=== PATIENT | male | born 1950 | race Caucasian/White ===

== ENCOUNTER → 2020-02-08 10:10 | Outpatient (BNVA) | payer MEDICARE, SELFPAY | PROVIDERS: PCP Family Medicine; Visit Provider Urology | DX: Z43.5 Encounter for attention to cystostomy (principal); N31.9 Neuromuscular dysfunction of bladder, unspecified | CPT/HCPCS: 51705; 99212 ==

== ENCOUNTER → 2020-03-14 10:13 | Outpatient (BNVA) | payer MEDICARE, SELFPAY | PROVIDERS: Visit Provider Urology | DX: N13.9 Obstructive and reflux uropathy, unspecified (principal) | CPT/HCPCS: 51701; 51705; 51710; 99212 ==

== ENCOUNTER → 2020-04-25 13:09 | Outpatient (BNVA) | payer MEDICARE, SELFPAY | PROVIDERS: Visit Provider Urology | DX: N31.9 Neuromuscular dysfunction of bladder, unspecified (principal) | CPT/HCPCS: 51705; 51710; 99212 ==

== ENCOUNTER → 2020-06-11 13:57 | Outpatient (BNVA) | payer MEDICARE, SELFPAY | PROVIDERS: Visit Provider Urology | DX: N31.9 Neuromuscular dysfunction of bladder, unspecified (principal) | CPT/HCPCS: 51705; 99212 ==

== ENCOUNTER → 2020-07-17 13:02 | Outpatient (BNVA) | payer MEDICARE, SELFPAY | PROVIDERS: Visit Provider Urology | DX: N31.9 Neuromuscular dysfunction of bladder, unspecified (principal) | CPT/HCPCS: 51701; 51705; 99212 ==

== ENCOUNTER → 2020-08-23 13:07 | Outpatient (BNVA) | payer MEDICARE, SELFPAY | PROVIDERS: Visit Provider Urology | DX: N31.9 Neuromuscular dysfunction of bladder, unspecified (principal) | CPT/HCPCS: 51705; 99212 ==

== ENCOUNTER → 2020-10-01 12:56 | Outpatient (BNVA) | payer MEDICARE, SELFPAY | PROVIDERS: Visit Provider Urology | DX: N31.9 Neuromuscular dysfunction of bladder, unspecified (principal) | CPT/HCPCS: 51705; 99212 ==

== ENCOUNTER → 2020-11-14 10:32 | Outpatient (BNVA) | payer MEDICARE, SELFPAY | PROVIDERS: Visit Provider Urology | DX: Z46.6 Encounter for fitting and adjustment of urinary device (principal); N31.9 Neuromuscular dysfunction of bladder, unspecified | CPT/HCPCS: 51705; 99212 ==

== ENCOUNTER → 2020-12-25 09:49 | Outpatient (BNVA) | payer MEDICARE, SELFPAY | PROVIDERS: PCP Internal Medicine Nephrology; Visit Provider Urology | DX: N31.9 Neuromuscular dysfunction of bladder, unspecified (principal) | CPT/HCPCS: 51705 ==

== ENCOUNTER → 2021-01-31 12:59 | Outpatient (BNVA) | payer MEDICARE, SELFPAY | PROVIDERS: PCP Internal Medicine Nephrology; Visit Provider Urology | DX: N31.9 Neuromuscular dysfunction of bladder, unspecified (principal) | CPT/HCPCS: 51705 ==

== ENCOUNTER → 2021-03-04 13:00 | Outpatient (BNVA) | payer MEDICARE, SELFPAY | PROVIDERS: PCP Internal Medicine Nephrology; Visit Provider Urology | DX: N31.9 Neuromuscular dysfunction of bladder, unspecified (principal) | CPT/HCPCS: 51705 ==

== ENCOUNTER → 2021-04-08 12:19 | Outpatient (BNVA) | payer MEDICARE, SELFPAY | PROVIDERS: PCP Internal Medicine Nephrology; Visit Provider Urology | DX: N31.9 Neuromuscular dysfunction of bladder, unspecified (principal) | CPT/HCPCS: 51705 ==

== ENCOUNTER → 2021-05-13 12:46 | Outpatient (BNVA) | payer MEDICARE, SELFPAY | PROVIDERS: PCP Internal Medicine Nephrology; Visit Provider Urology | DX: Z43.5 Encounter for attention to cystostomy (principal); N31.9 Neuromuscular dysfunction of bladder, unspecified | CPT/HCPCS: 51705 ==

== ENCOUNTER → 2021-06-17 10:44 | Outpatient (BNVA) | payer MEDICARE, SELFPAY | PROVIDERS: PCP Internal Medicine Nephrology; Visit Provider Urology | DX: N31.9 Neuromuscular dysfunction of bladder, unspecified (principal) | CPT/HCPCS: 51705 ==

== ENCOUNTER → 2021-08-05 10:12 | Outpatient (BNVA) | payer MEDICARE, SELFPAY | PROVIDERS: PCP Internal Medicine Nephrology; Visit Provider Urology | DX: Z43.5 Encounter for attention to cystostomy (principal); N31.9 Neuromuscular dysfunction of bladder, unspecified | CPT/HCPCS: 51705 ==

== ENCOUNTER → 2021-09-18 10:58 | Outpatient (BNVA) | payer MEDICARE, SELFPAY | PROVIDERS: PCP Internal Medicine Nephrology; Visit Provider Urology | DX: Z43.5 Encounter for attention to cystostomy (principal); N31.9 Neuromuscular dysfunction of bladder, unspecified | CPT/HCPCS: 51705; 99212 ==

== ENCOUNTER → 2021-10-23 11:12 | Outpatient (BNVA) | payer MEDICARE, SELFPAY | PROVIDERS: PCP Internal Medicine Nephrology; Visit Provider Urology | DX: N31.9 Neuromuscular dysfunction of bladder, unspecified (principal) | CPT/HCPCS: 51705 ==

== ENCOUNTER → 2021-11-28 10:37 | Outpatient (BNVA) | payer MEDICARE, SELFPAY | PROVIDERS: PCP Internal Medicine Nephrology; Visit Provider Urology | DX: N31.9 Neuromuscular dysfunction of bladder, unspecified (principal) | CPT/HCPCS: 51702; 51705 ==

== ENCOUNTER → 2022-01-01 10:49 | Outpatient (BNVA) | payer MEDICARE, SELFPAY | PROVIDERS: PCP Internal Medicine Nephrology; Visit Provider Urology | DX: Z43.5 Encounter for attention to cystostomy (principal) | CPT/HCPCS: 51705 ==

== ENCOUNTER → 2022-04-10 11:35 | Outpatient (BNVA) | payer MEDICARE, SELFPAY | PROVIDERS: PCP Internal Medicine Nephrology; Visit Provider Urology | DX: N31.9 Neuromuscular dysfunction of bladder, unspecified (principal) | CPT/HCPCS: 51705; 99212 ==

== ENCOUNTER → 2022-05-19 11:20 | Outpatient (BNVA) | payer MEDICARE, SELFPAY | PROVIDERS: PCP Internal Medicine Nephrology; Visit Provider Urology | DX: Z43.5 Encounter for attention to cystostomy (principal); N31.9 Neuromuscular dysfunction of bladder, unspecified | CPT/HCPCS: 51705 ==

== ENCOUNTER → 2022-06-25 11:30 | Outpatient (BNVA) | payer MEDICARE, SELFPAY | PROVIDERS: PCP Internal Medicine Nephrology; Visit Provider Urology | DX: Z43.5 Encounter for attention to cystostomy (principal); N31.9 Neuromuscular dysfunction of bladder, unspecified | CPT/HCPCS: 51705 ==

== ENCOUNTER → 2022-08-04 11:00 | Outpatient (BNVA) | payer MEDICARE, SELFPAY | PROVIDERS: PCP Internal Medicine Nephrology; Visit Provider Urology | DX: N31.9 Neuromuscular dysfunction of bladder, unspecified (principal) | CPT/HCPCS: 51705 ==

== ENCOUNTER → 2022-09-08 11:05 | Outpatient (BNVA) | payer MEDICARE, SELFPAY | PROVIDERS: PCP Internal Medicine Nephrology; Visit Provider Urology | DX: Z43.5 Encounter for attention to cystostomy (principal); N31.9 Neuromuscular dysfunction of bladder, unspecified | CPT/HCPCS: 51705 ==

== ENCOUNTER 2022-10-28 09:26 | Outpatient (AMB) | payer MEDICARE, SELFPAY ==
--- NOTE | 2022-10-28 08:21 | A.OFFVIS_ITS ---
Intake Intake Visit Reasons: 5w cath change Intake Note: Patient presents today for a follow-up on 5 weeks catheter change: Meds- None Allergies to Antibiotic- None Blood Thinner- None Rewards Consultant Required: No Accompanied by: Self / Same As Patient Allergies No Known Allergies Allergy (Verified 10/28/22 09:34) HPI HPI Comments History of Present Illness Details Joseph is a 72-year-old male who presents to the clinic today for a suprapubic catheter change. 10/28/22? Joseph is a patient of Dr. Lazar who is followed for a neurogenic bladder. He has a suprapubic catheter in place and he is here for a catheter change. The patient reports that he noticed cloudy urine this morning, but he denies any other symptoms of fever or blood in the urine. He follows up with a naphthol soaping machine operator, Dr. Romero, and is on dialysis for end-stage renal disease. He does produce some urine. Eval: SPT site clean no signs of infection Plan: We will continue the suprapubic catheter for neurogenic bladder. I advised the patient to let me know if he develops any urinary symptoms. Follow up in 6 weeks with Nurse for SPT change, GINGER Lazar 6 months. [facility] Medical History Hydrocele Neurogenic bladder Review of Systems Const All systems reviewed & are unremarkable except as noted in HPI and below Reports no additional complaints Eyes Reports no additional complaints ENT Reports no additional complaints Card Denies dyspnea Resp Denies cough and Denies dyspnea GI Reports no additional complaints Musc Reports no additional complaints Skin/Breast Denies rash and Denies unusual bruising Neuro Reports no additional complaints Psych Reports no additional complaints Endo Reports no additional complaints Raji/Lymph Reports no additional complaints Aller/Immun Reports no additional complaints Physical Exam Const General: healthy appearing, no acute distress and well developed Orientation/consciousness: patient oriented x3 HEENT Head: Yes normocephalic and Yes atraumatic Eyes Conjunctivae: conjunctivae normal Neck Neck: Yes normal visual inspection Chest Chest palpation & inspection: normal inspection of the chest Resp Effort & Inspection: normal respiratory effort Cardio Rate: regular rate GI Inspection: Yes normal to inspection Palpation (GI): Soft to palpation Other: SPT site clean no signs of infection Skin General skin exam: no rashes or lesions noted Neuro General: patient oriented x3 Extrem General: No pedal edema Psych Appearance: grossly normal Affect: normal affect Office Procedures Bladder/Catheter Procedure Details: 18 fr mila urbina cath 7.5 ml balloon exchanged with new 18 fr mila urbina cath 7.5 ml balloon w blue plug, pt tolerated exchange well. 38058-[id number] of bladder tube Procedure code (CPT) selection complete Results AMB Urinalysis, Automated UA Leukoctes 500 Griselda/uL Last Edit by SHERITA Mcguire on 10/28/22 09:50 3+ Peggy Ordaz 10/28/22 09:50 UA Nitrite Negative Last Edit by SHERITA Mcguire on 10/28/22 09:50 UA Urobilinogen 0.2 mg/dL Last Edit by SHERITA Mcguire on 10/28/22 09:5 0 UA Protein 100 mg/dL Last Edit by SHERITA Mcguire on 10/28/22 09:50 2+ Peggy Ordaz 10/28/22 09:50 UA pH 9.0 Last Edit by SHERITA Mcguire on 10/28/22 09:50 UA Blood 200 Alonzo/uL Last Edit by SHERITA Mcguire on 10/28/22 09:50 3+ Peggy Ordaz 10/28/22 09:50 UA Specific Superior 1.005 Last Edit by SHERITA Mcguire on 10/28/22 09: 50 UA Ketone Negative Last Edit by SHERITA Mcguire on 10/28/22 09:50 UA Bilirubin 0 mg/dL Last Edit by SHERITA Mcguire on 10/28/22 09:50 UA Glucose 0 mg/dL Last Edit by SHERITA Mcguire on 10/28/22 09:50 Results Reviewed Results Reviewed: Laboratory Last Values Urine pH (Auto) 9.0 07/19/23 09:48 Specific Superior (Auto) 1.005 10/28/22 09:48 Urine Protein (Auto) 100 mg/dL 10/28/22 09:48 Glucose (UA)(Auto) 0 mg/dL 10/28/22 09:48 Urine Ketones (Auto) Negative 10/28/22 09:48 Urine Blood (Auto) 200 Alonzo/uL 10/28/22 09:48 Urine Nitrite (Auto) Negative 10/28/22 09:48 Urine Bilirubin (Auto) 0 mg/dL 10/28/22 09:48 Urine Urobilinogen (Auto) 0.2 mg/dL 10/28/22 09:48 Leukocyte Esterase (Auto) 500 Griselda/uL 10/28/22 09:48 Assessment & Plan Assessment & Plan (1) Neurogenic urinary bladder disorder: Code(s): N31.9 - Neuromuscular dysfunction of bladder, unspecified Plan We will continue the suprapubic catheter for neurogenic bladder. I advised the patient to let me know if he develops any urinary symptoms. Follow up in 6 weeks with Nurse for SPT change, FU Dr. Lazar in 6 months. Orders: Orders AMB Urinalysis Automated Today Z13.9 - Encounter for screening, unspecified AMB Bladder/Catheter Procedure Today N31.9 - Neuromuscular dysfunction of bladder, unspecified Patient Instructions: The patient had an opportunity to ask questions regarding treatment plan. All questions were answered. Imaging, Laboratory studies and physical exam results were discussed and reviewed in detail. No major barriers to understanding were identified. The patient expressed understanding and agreement with the above treatment plan. The patient is aware they should contact our office by phone for worsening of their current condition or the appearance of new symptoms. Compliance is encouraged with any medications and followup testing that is ordered. It is a privilege to be allowed the opportunity to participate in the urologic care of your patient. If you have any questions or concerns regarding treatment for the above conditions please do not hesitate to contact me. The office telephone contact is [phone]. This note is constructed in part using voice recognition software. While every effort has been made to ensure accuracy lehr cutter errors may have been inclu ded. Yours sincerely, Riki Sumner MD Coding Level of Care Code Est Pt Level 3 (23940) Diagnoses Neurogenic urinary bladder disorder N31.9 CPT Codes Bladder/Catheter Procedure - CPT: 83397-Xsuhdx of bladder tube ([id number])
== END 2022-10-28 10:05 | disposition home or self-care (01) ==
PROVIDERS: PCP Internal Medicine Nephrology; Visit Provider Urology
DX: N31.9 Neuromuscular dysfunction of bladder, unspecified (principal)
CPT/HCPCS: 51705; 99213

== ENCOUNTER → 2022-10-28 09:26 | Outpatient (BNVA) | payer MEDICARE, SELFPAY | PROVIDERS: PCP Internal Medicine Nephrology; Visit Provider Urology | DX: N31.9 Neuromuscular dysfunction of bladder, unspecified (principal) | CPT/HCPCS: 51705; 99212 ==

== ENCOUNTER → 2022-12-31 14:31 | Outpatient (BNVA) | payer MEDICARE, SELFPAY | PROVIDERS: PCP Internal Medicine Nephrology; Visit Provider Urology | DX: Z43.5 Encounter for attention to cystostomy (principal); N31.9 Neuromuscular dysfunction of bladder, unspecified | CPT/HCPCS: 51705 ==

== ENCOUNTER → 2023-03-16 10:40 | Outpatient (BNVA) | payer MEDICARE, SELFPAY | PROVIDERS: PCP Internal Medicine Nephrology; Visit Provider Urology | DX: N31.9 Neuromuscular dysfunction of bladder, unspecified (principal) | CPT/HCPCS: 51705 ==

== ENCOUNTER 2023-04-27 10:43 | Outpatient (AMB) | payer MEDICARE, SELFPAY ==
--- NOTE | 2023-04-27 10:44 | MHC.OFFVIS ---
Intake Intake Visit Reasons: 6m/SPT change Intake Note: Patient is Present for Follow Up Spt Change Urology Medication: None Antibiotic Allergies: None Blood Thinners: None Allergies No Known Allergies Allergy (Verified 04/27/23 10:50) HPI HPI Comments History of Present Illness Details Joseph is a very pleasant male. He is a patient of Dr. Gant. He seen for the following urologic conditions - neurogenic bladder Minimal issues since last visit Currently being evaluated for transplantation. They have discussed ileal loop previously Option may be available for bladder implantation and continued use of suprapubic tube Doing well otherwise Neurogenic Bladder: SPT changed prefers catheter clip over valve Also uses catheter plug They are here for further management for incomplete emptying neurogenic bladder. 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 [facility] Medical History Hydrocele Neurogenic bladder Review of Systems Const Denies chills and Denies fever(s) Card Reports no additional complaints and Denies syncope Resp Denies cough GI Denies abdominal pain and Denies heartburn Reports as per HPI and Denies change in libido Neuro Denies syncope Psych Denies change in libido Endo Denies change in libido Physical Exam Const General: cooperative, healthy appearing, comfortable and no acute distress Orientation/consciousness: patient oriented x3 HEENT Face and sinus: Yes normal facial exam Mouth: moist mucous membranes Neck Neck: Yes normal visual inspection, Yes full ROM and Yes trachea midline Chest Chest palpation & inspection: normal inspection of the chest Resp Effort & Inspection: normal respiratory effort, able to speak in complete sentences and no respiratory distress GI Inspection: Yes normal to inspection Back/Spine/Pelvis Cervical Spine: normal cervical lordosis Thoracic/Lumbar Spine: thoracic and lumbar spine normal to inspection Skin General skin exam: no rashes or lesions noted Neuro General: patient oriented x3, gait normal, tone normal and moves all extremities Extrem General: Yes normal to inspection and Yes capillary refill normal Office Procedures Bladder/Catheter Procedure Details: 18 fr mila urbina cath 7.5 ml balloon exchanged with new 18 fr mila urbina cath 7.5 ml balloon w blue plug, pt tolerated exchange well. 5 wks next change [id number] of bladder tube Procedure code (CPT) selection complete Assessment & Plan Assessment & Plan (1) Neurogenic urinary bladder disorder: Code(s): N31.9 - Neuromuscular dysfunction of bladder, unspecified Plan Six-month follow-up with me Orders: Orders AMB Bladder/Catheter Procedure Today N31.9 - Neuromuscular dysfunction of bladder, unspecified Patient Instructions: Imaging studies, laboratory and physical exam results were discussed and reviewed in detail. No major barriers to patient understanding were identified. An opportunity to ask questions regarding the treatment plan was provided. All questions were answered. The patient expressed understanding and agreement with the above treatment plan. The patient is aware they should contact our office by phone for worsening of their current condition or the appearance of new urologic symptoms. Compliance is encouraged with any medications and followup testing that is ordered. It is a privilege to participate in the urologic care of your patient. If you have any questions or concerns regarding treatment for the above conditions, or other urologic issues, please do not hesitate to contact me. The office telephone contact is [phone]. This note is constructed using voice recognition software. While every effort has been made to ensure accuracy abstract maker errors may have been included. Yours sincerely, Dr Vladimir Lazar MD, [facility] - Urology Providers of Expert, Compassionate Care for the Genitourinary System Coding Level of Care Code Est Pt Level 3 (56195) Diagnoses Neurogenic urinary bladder disorder N31.9 CPT Codes Bladder/Catheter Procedure - CPT: 48123-Zvxjtq of bladder tube ([id number])
== END 2023-04-27 11:06 | disposition home or self-care (01) ==
LOC: HO.HUSH 10:43
PROVIDERS: PCP Internal Medicine Nephrology; Visit Provider Urology
DX: N31.9 Neuromuscular dysfunction of bladder, unspecified (principal)
CPT/HCPCS: 51705; 99213

== ENCOUNTER → 2023-04-27 10:43 | Outpatient (BNVA) | payer MEDICARE, SELFPAY | PROVIDERS: PCP Internal Medicine Nephrology; Visit Provider Urology | DX: Z43.5 Encounter for attention to cystostomy (principal); N31.9 Neuromuscular dysfunction of bladder, unspecified | CPT/HCPCS: 51705; 99212 ==

== ENCOUNTER → 2023-06-29 11:17 | Outpatient (BNVA) | payer MEDICARE, SELFPAY | PROVIDERS: PCP Internal Medicine Nephrology; Visit Provider Urology | DX: N31.9 Neuromuscular dysfunction of bladder, unspecified (principal) | CPT/HCPCS: 51705 ==

== ENCOUNTER → 2023-08-10 11:00 | Outpatient (BNVA) | payer MEDICARE, SELFPAY | PROVIDERS: PCP Internal Medicine Nephrology; Visit Provider Urology | DX: N31.9 Neuromuscular dysfunction of bladder, unspecified (principal) | CPT/HCPCS: 51705 ==

== ENCOUNTER 2023-10-05 13:34 | Outpatient (AMB) | payer MEDICARE, SELFPAY ==
--- NOTE | 2023-10-05 13:20 | MHC.OFFVIS ---
Intake Visit Reasons: 6m/SPT change Intake Note: Patient is present for 6 month f/u and STP change Urology Medication:ciprofloxacin Antibiotic Allergy:none Blood Thinner:none pt states that david has been getting caught in the tube for a couple weeks Flower Planter Required: No Allergies No Known Allergies Allergy (Verified 10/05/23 13:23) HPI Comments Details: Joseph is a very pleasant male. He is a patient of Dr. Gant. He seen for the following urologic conditions - neurogenic bladder Minimal issues since last visit Currently being evaluated for transplantation. They have discussed ileal loop previously Option may be available for bladder implantation and continued use of suprapubic tube Doing well otherwise Neurogenic Bladder: SPT changed prefers catheter clip over valve Also uses catheter plug They are here for further management for incomplete emptying neurogenic bladder. 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 [facility] Medical History Hydrocele Neurogenic bladder Review of Systems Const Denies chills and Denies fever(s) Card Reports no additional complaints and Denies syncope Resp Denies cough GI Denies abdominal pain and Denies heartburn Reports as per HPI and Denies change in libido Neuro Denies syncope Psych Denies change in libido Endo Denies change in libido Physical Exam Const General: cooperative, healthy appearing, comfortable and no acute distress Orientation/consciousness: patient oriented x3 HEENT Face and sinus: Yes normal facial exam Mouth: moist mucous membranes Neck Neck: Yes normal visual inspection, Yes full ROM and Yes trachea midline Chest Chest palpation & inspection: normal inspection of the chest Resp Effort & Inspection: normal respiratory effort, able to speak in complete sentences and no respiratory distress GI Inspection: Yes normal to inspection Back/Spine/Pelvis Cervical Spine: normal cervical lordosis Thoracic/Lumbar Spine: thoracic and lumbar spine normal to inspection Skin General skin exam: no rashes or lesions noted Neuro General: patient oriented x3, gait normal, tone normal and moves all extremities Extrem General: Yes normal to inspection and Yes capillary refill normal Office Procedures Bladder/Catheter Procedure Details: 18 fr mila urbina cath 7.5 ml balloon exchanged with new 18 fr mila urbina cath 7.5 ml balloon w blue plug, pt tolerated exchange well. 5 wks next change 29479-[id number] of bladder tube Procedure code (CPT) selection complete Assessment & Plan Assessment & Plan (1) Neurogenic urinary bladder disorder: Code(s): N31.9 - Neuromuscular dysfunction of bladder, unspecified Category: Medical Plan 6 month review Orders: Orders AMB Bladder/Catheter Procedure Today N31.9 - Neuromuscular dysfunction of bladder, unspecified Patient Instructions: Imaging studies, laboratory and physical exam results were discussed and reviewed in detail. No major barriers to patient understanding were identified. An opportunity to ask questions regarding the treatment plan was provided. All questions were answered. The patient expressed understanding and agreement with the above treatment plan. The patient is aware they should contact our office by phone for worsening of their current condition or the appearance of new urologic symptoms. Compliance is encouraged with any medications and followup testing that is ordered. It is a privilege to participate in the urologic care of your patient. If you have any questions or concerns regarding treatment for the above conditions, or other urologic issues, please do not hesitate to contact me. The office telephone contact is [phone]. This note is constructed using voice recognition software. While every effort has been made to ensure accuracy gas turbine mechanic errors may have been included. Yours sincerely, Dr Vladimir Lazar MD, [facility] - Urology Providers of Expert, Compassionate Care for the Genitourinary System Coding Level of Care Code Est Pt Level 3 (49813) Diagnoses Neurogenic urinary bladder disorder N31.9 CPT Codes Bladder/Catheter Procedure - CPT: 11210-Crayzy of bladder tube ([id number])
--- OUTSIDE RECORDS SUMMARY | 2023-10-07 08:02 | XMS_ITS | Continuity of Care Document ---
Author Organization [facility] ter Address [address] [place] [id number]- Care Team Providers Care Hem Inspector Name Role Phone Jan Romero MD Primary Care Physician [place] [facility] Date(s): 10/12/22 - 10/16/[address] [address] Discharge Disposition: A-D/C Home Attending Physician: Zoraida Solorio MD Admitting Physician: Dk Ayala MD Referring Physician: Dk Ayala MD Allergies, Adverse Reactions, Alerts No Known Allergies Immunizations Given and Recorded Vaccine Date Status Refusal Reason SARS-CoV-2 (COVID-19) mRNA-1273 vaccine 07/04/20 R ecorded SARS-CoV-2 (COVID-19) mRNA-1273 vaccine 05/23/20 R ecorded tetanus/diphtheria/pertussis, acel(Tdap) 08/09/17 Recorded tetanus-diphtheria toxoids (Td) 02/02/17 Recorded Medications amiodarone 200 mg oral tablet 200 mg, By Mouth, Daily, # 90 tablet, Refills 0, Tot. Refills 0, Maintenance, 10/16/22 8:47:00 EDT,Route to Pharmacy Electronically, [id number] 1966, Partial fill upon patient request if the prescription is for a schedule II opioid drug., 180,... Start Date: 10/16/22 Status: Ordered aspirin 81 mg oral tablet, chewable 81 mg, By Mouth, Daily, # 90 tablet, Refills 0, Tot. Refills 0, Maintenance, 10/16/22 8:43:00 EDT, Route to Pharmacy Electronically, [id number] 1966, Partial fill upon patient request if the prescription is for a schedule II opioid drug., 180, c... Start Date: 10/16/22 Status: Ordered atorvastatin 80 mg oral tablet = 80 mg, By Mouth, Daily, # 90 tablet, 0 Refills, Maintenance, 10/16/22 8:43:00 EDT, Tablet, [facility] 1966, Partial fill upon patient request if the prescription is for a schedule II opioid drug., 180, cm, 10/16/22 8:20:00 EDT, Height, 75, kg,... Start Date: 10/16/22 Status: Ordered calcitriol 0.25 mcg oral capsule = 1.25 mcg, By Mouth, Every Wednesday, and Wednesday, # 30 each, 0 Refills, Maintenance, 10/16/22 8:43:00 EDT, Capsule, [facility] 1966, Partial fill upon patient request if the prescription is for a schedule II opioid drug., 180, cm, 070... Start Date: 10/16/22 Status: Ordered calcium acetate 667 mg oral tablet 3 tablet = 2,001 mg, By Mouth, 3 times a day, # 270 tablet, 0 Refills, Maintenance, 10/13/22 4:41:00 EDT, Tablet, Partial fill upon patient request if the prescription is for a schedule II opioid drug. Start Date: 10/13/22 Status: Ordered calcium carbonate 500 mg (200 mg elemental calcium) oral tablet, chewable 1,000 mg, 2, tablet, Chew, 3 times a day before meals, Refills 0, Maintenance, 02/26/21 10:52:00 EST, Partial fill upon patient request if the prescription is for a schedule II opioid drug. Start Date: 02/26/21 Status: Ordered carvedilol 3.125 mg oral tablet 3.125 mg, Tablet, By Mouth, 10/16/22 9:00:00 EDT Start Date: 10/16/22 Stop Date: 10/16/22 Status: Completed carvedilol 3.125 mg oral tablet 3.125 mg, By Mouth, Every Wednesday, # 30 each, Refills 0, Tot. Refills 0, Maintenance, 10/16/22 8:50:00 EDT, Route to Pharmacy Electronically, [facility] 1966, Partial fill upon patient request if the prescription is for a schedule II opioid drug.... Start Date: 10/16/22 Status: Ordered carvedilol 3.125 mg oral tablet 3.125 mg, By Mouth, Every Wednesday, Wednesday and Wednesday, # 30 each, Refills 0, Tot. Refills 0, Maintenance, 10/16/22 8:51:00 EDT, [facility], Partial fill upon patient request if the prescription is for a sc... Start Date: 10/16/22 Status: Ordered furosemide 80 mg oral tablet 160 mg, By Mouth, Every Wednesday, # 30 each, Refills 0, Tot. Refills 0, Maintenance, 10/16/22 8:45:00EDT, Route to Pharm[facility]ically, [facility], Partial fill upon patient request if the prescription is for a schedule II opioid drug.,... Start Date: 10/16/22 Status: Ordered furosemide 80 mg oral tablet 80 mg, By Mouth, Every Wednesday, and Wednesday, # 30 each, Refills 0, Tot. Refills 0, Maintenance, 10/16/22 8:46:00 EDT, Route to [facility]ically[facility], Partial fill upon patient request if the prescription is for a donaldo... Start Date: 10/16/22 Status: Ordered furosemide 80 mg oral tablet 160 mg, By Mouth, Every Wednesday, Wednesday and Wednesday, # 30 each, Refills 0, Tot. Refills 0, Maintenance, 10/16/22 8:46:00 EDT, Route to Pharm[facility], Partial fill upon patient request if the prescription is for a sche... Start Date: 10/16/22 Status: Ordered prescription for outpatient physical therapy prescription for outpatient physical therapy, See Instructions, # 1 each, Refills 0, Tot. Refills 0, Maintenance, [id number]: Therapeutic Exercise. 3 times a week for 6 weeks, 10/16/22 9:14:00 EDT, Supply Start Date: 10/16/22 Status: Ordered sodium zirconium cyclosilicate 10 g oral powder for reconstitution 1 pack/packet = 10 Gm, By Mouth, Daily, # 30 pack/packet, 0 Refills, Maintenance, 10/16/22 8:43:00 EDT, Packet, [facility] 1967, Partial fill upon patient request if the prescription is for a schedule II opioid drug., 180, cm, 10/16/22 8:20:00 E... Start Date: 10/16/22 Status: Ordered Triphrocaps oral capsule TAKE 1 CAPSULE BY MOUTH ONCE DAILY Start Date: 10/13/22 Status: Ordered Tylenol 325 mg oral tablet 650 mg, 2, tablet, By Mouth, Every 6 hours, PRN, Refills 0, Maintenance, Pain , Moderate, 02/26/21 10:52:00 EST, Partial fill upon patient request if the prescription is for a schedule II opioid drug. Start Date: 02/26/21 Status: Ordered Vitamin D3 oral tablet 1 tablet = 10 mcg, By Mouth, Daily, 0 Refills, Maintenance, 10/12/22 15:52:00 EDT, Partial fill upon patient request if the prescription is for a schedule II opioid drug. Start Date: 10/12/22 Status: Ordered Problem List Condition Confirmation Course Effective Dates Status Health St atus Informant Cardiomyopathy, nonischemic Confirmed Active SOB (shortness of breath) Confirmed Active End stage renal disease on dialysis Confirmed Active Neurogenic bladder Confirmed Active Obstructive uropathy Confirmed Active Results Radiology Reports * Exam Date Time Procedure Performing Provider Status 10/13/22 5:48 AM Chest 2 Views Frontal and Lat Resendiz , Abelardo; Auth (Verified) Notes: (Chest 2 Views Frontal and Lat) Reason For Exam: Postop RESULT: Chest 2 Views Frontal and Lat Chest 2 Views Frontal and Lat Reason: Postop; Clinical Question(s): Line Placement; Pneumothorax; Special Instructions: Patient may go unmonitored. Please keep film at back desk COMPARISON: 02/20/2021. FINDINGS: LINES AND TUBES: Triple-lead right subclavian AICD wires are intact. LUNGS AND PLEURA: Partial atelectasis of the left lower lobe and small left pleural effusion. There is a bandlike opacity in right lower lobe, likely representing scarring or atelectasis. No right effusion. No pneumothorax. HEART, MEDIASTINUM AND DEBI: Moderate prominence of the cardiac silhouette, unchanged. Central pulmonary vascular congestion without overt interstitial edema. BONES AND SOFT TISSUES: No acute abnormality. Partially visualized vascular stent in the left axillary region. IMPRESSION: Small left pleural effusion and partial atelectasis of left lower lobe. Pulmonary vascular congestion without overt interstitial edema. WSN: [id number] Ordering Physician: Gene Vee Dictated By: Bridget Cornelius MD Dictated Date/Time: 10/13/22 9:56 am Reviewed By: Bridget Cornelius MD Signed By: Bridget Cornelius MD Signed Date/Time: 10/13/22 9:56 am Transcribed By: ALYSSA Transcribed Date/Time: 10/13/22 9:54 am Vital Signs Most recent to oldest [Reference Range]: 1 2 3 Height 180 cm (10/16/22 8:20 AM) 180 cm (10/16/22 3:56 AM) 180 cm (10/15/22 8:57 PM) Weight 74.2 kg (10/16/22 5:27 AM) 75.8 kg (10/15/22 5:25 AM) 75.8 kg (10/14/22 6:03 AM) Oxygen Saturation [94-100 %] 92 % *L* (10/16/22 3:56 AM) 96 % (10/15/22 8:57 PM) 91 % *L* (10/15/22 2:10 PM) Pulse Rate [55-90 bpm] 86 bpm (10/16/22 8:49 AM) 86 bpm (10/16/22 8:20 AM) 73 bpm (10/16/22 3:56 AM) Body Mass Index [18.5-24.99 kg/m2] 22.56 kg/m2 (10/12/22 2:56 PM) Blood Pressure [90-138/55-84 mm Hg] 140/85mm Hg *H* (10/16/22 8:49 AM) 140/85mm Hg *H* (10/16/22 8:20 AM) 127/69mm Hg (10/16/22 3:56 AM) Respiratory Rate [16-30 br/min] 18 br/min (10/16/22 8:20 AM) 16 br/min (10/16/22 3:56 AM) 16 br/min (10/15/22 8:57 PM) Temperature [96.8-100.4 DegF] 99.0 DegF (10/16/22 8:20 AM) 98.9 DegF (10/16/22 3:56 AM) 98.2 DegF (10/15/22 8:57 PM) Mode of Delivery (Oxygen) Room air (10/16/22 3:56 AM) Room air (10/15/22 8:57 PM) Room air (10/15/22 2:10 PM) Blood pressure sites Arm, right (10/16/22 8:20 AM) Arm, right (10/16/22 3:56 AM) Arm, right (10/15/22 8:57 PM) Temperature Route Oral (10/16/22 8:20 AM) Oral (10/16/22 3:56 AM) Temporal (10/15/22 8:57 PM) Dry Weight 75 kg (10/12/22 2:56 PM) Weight Obtained Via Bed scale (10/16/22 5:27 AM) Bed scale (10/15/22 5:25 AM) Bed scale (10/14/22 6:03 AM) Dry Weight Obtained Via Patient/family s tated (10/12/22 2:56 PM) Social History Social History Type Response Smoking Status Never (less than 100 in lifetime) entered on: 04/13/19 Sex Note * Faviola Cummings RN: PERFORM Event Display: Discharge/Transfer Note Hospital Authored Date: [id number] Nursing Discharge Note Entered On: 10/16/2022 12:28 EDT Performed On: 10/16/2022 12:27 EDT by Faviola Cummings RN Nursing Discharge Note 2 Discharge Time : 10/16/2022 12:20 EDT Discharge Level of Care at Discharge : Home/Halfway/Foster Care Patient Left Unit Via : Wheelchair Patient Accompanied Off Unit with : Responsible adult DC Instructions Provided & Signed by Pt : Yes Patient Understands D/C Instructions : Yes Patient Instructions Discharge Signed : Yes Did Pt have Specialty Bed or Wound Vac : No Faviola Cummings RN - 10/16/2022 12:27 EDT * Lyndsey ROMO, Zoraida: MODIFY Delia ROMO, Raffi: PERFORM, MODIFY Delia ROMO, Raffi: MODIFY, MODIFY Raffi Lin MD: MODIFY, MODIFY Delia ROMO, Raffi: MODIFY, MODIFY Delia ROMO, Raffi: MODIFY Event Display: Discharge/Transfer Note Hospital Authored Date: [id number] Patient: ??JOSEPH OLMOS ? Age:??72 Years?Sex:??Male?:??1950?? 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 _ Discharge Medications Acetaminophen (Tylenol 325 mg oral tablet)?650?Milligram?2?tablet?By Mouth?Every 6 hours?as needed?Pain , Moderate amiODARONE (amiodarone 200 mg oral tablet)?200?Milligram?By Mouth?Daily Aspirin (aspirin 81 mg oral tablet, chewable)?81?Milligram?By Mouth?Daily Atorvastatin (atorvastatin 80 mg oral tablet)?80?Milligram?By Mouth?Daily Calcitriol (calcitriol 0.25 mcg oral capsule)?1.25?Microgram?By Mouth?Every Wednesday, and Wednesday Calcium Acetate (calcium acetate 667 mg oral tablet)?3?tab(s)?2,001?Milligram?By Mouth?3 times a day Calcium Carbonate (calcium carbonate 500 mg (200 mg elemental calcium) oral tablet, chewable)?1,000?Milligram?2?tablet?Chew?3 times a day before meals Carvedilol (carvedilol 3.125 mg oral tablet)?3.125?Milligram?By Mouth?Every Wednesday Carvedilol (carvedilol 3.125 mg oral tablet)?3.125?Milligram?By Mouth?Every Wednesday, Wednesday and Wednesday Cholecalciferol (Vitamin D3 oral tablet)?1?tab(s)?10?Microgram?By Mouth?Daily Furosemide (furosemide 80 mg oral tablet)?160?Milligram?By Mouth?Every Wednesday Furosemide (furosemide 80 mg oral tablet)?80?Milligram?By Mouth?Every Wednesday, and Wednesday Furosemide (furosemide 80 mg oral tablet)?160?Milligram?By Mouth?Every Wednesday, Wednesday and Wednesday Miscellaneous Rx (prescription for outpatient physical therapy)?See Instructions?97998: Therapeutic Exercise.3 times a week for 6 weeks Multivitamin (Triphrocaps oral capsule)?TAKE 1 CAPSULE BY MOUTH ONCE DAILY sodium zirconium cyclosilicate (sodium zirconium cyclosilicate 10 g oral powder for reconstitution)?1?pack/packet?10?gram?By Mouth?Daily ? Medications Started lokelma aspirin atorvastatin calcitriol Medications Discontinued none Doses Changed Lasix changed to 80 mg on Wednesday, , Wednesday, Wednesday Lasix??160 mg on Wednesday, Wednesday, Wednesday Carvedilol??changed to 3.125 mg on Wednesday, Wednesday, Wednesday and Wednesday Allergies Allergies ?(Active and Proposed Allergies Only) NKA? (Severity: Unknown severity, Onset: Unknown) ? PCP Follow-Up/Heads-Up Please ensure cardiology follow-up Patient was given??prescriptions for??outpatient physical therapy, please assist if needed Hospital Course 72 year old male with a medical history of ESRD on HD via Left AV fistula, NIDCM LVEF 15%, LBBB . He was initially admitted to [facility] for presented with 1 hour VT vs SVT w aberrancy treated with amiodarone. He was also found to have NSTEMI, and underwent cardiac cath which showed no significant CAD.?? His hospital course was complicated by acute abdominal pain found to be secondary to perinephric bleed, which resolved with cessation of heparin.?? He was transferred to [facility] for EP evaluation for BiV ICD placement which was done on 10/12. His hemoglobin was stable and around his baseline on admission. He is hemodynamically stable and being discharged home with a prescription for outpatient PT. 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 Recommendations: - Continue amiodarone 200 mg daily?? - Continue aspirin, statin - Continue Carvedilol 3.125 mg on non-HD days (Wed, MW) and Lasix 80 mg Wednesday, , Wednesday and Lasix 160 mg every Wednesday, Wednesday, Wednesday and Wednesday - Cardiology??follow??up ?? Recent Bleeding (R58): Large left perinephric hematoma??after starting heparin --CT with large left perinephric hematoma, bilateral lower lobe atelectasis versus less likely consolidation. No stones or bladder wall thickening -??hemoglobin has down trended but stable around 11, 12.2 on 10/10, was 14.2 on presentation to [facility]??on??10/07 2022 Hb 9.9 from 11 on day of discharge, however baseline is around 10 and vitals have been stable ?? End-stage renal disease (N18.6)on hemodialysis Wednesday Hyperkalemia (E87.5)?? Secondary hyperparathyroidism - resolved Recommendations: - F/U with renal - Continue HD TTS - 10 gm lokelma daily - calcitriol - Low potassium diet ? Chronic suprapubic catheter (Z93.59):??Monitor urine output ? . Physical Exam General: sitting comfortably, alert, in no acute distress HEENT: EOMI, PERRLA, moist oral mucosa Cardiovascular: soft bibasilar crackles, systolic murmur at RUSB GI: soft, non-tender, non-distended abdomen with normal bowel sounds Neuro: AAO x3, Speech: normal, no facial droop, moving all 4 extremities Consultants Cardiology: Theresa Hummel MD?? Renal: Gene Vee MD Pending Results COVID-19 (2019 Novel Coronavirus) PCR ordered on 10/12/2022 Patient Education Titles Living with a Pacemaker?? Discharge Instructions for Pacemaker Implantation?? Heart Failure Discharge Instructions for Heart Failure?? Chronic Kidney Disease (CKD)?? Diet for Chronic Kidney Disease?? Hyperkalemia?? Discharge Instructions for Hyperkalemia?? Discharge Instructions for Cardiomyopathy?? Amiodarone Oral Tablet?? Sodium Zirconium Cyclosilicate Powder For Oral Suspension?? Patient Instructions You were admitted to [facility] for a pacemaker placement which was successfully done on 10.12. Your medications were adjusted based on recommendations of your cardiology and kidney doctors. ?? New medications: - aspirin 81 mg daily - atorvastatin 80 mg QD - calcitriol 1.25 every wednesday, , wednesday - lokelma 10 gm daily ?? Dose changes: - amiodarone 200 mg daily - lasix 80 mg on wednesday, and wednesday - carvedilol every wednesday, Wednesday, wednesday and wednesday - lasix 160 mg on wednesday, wednesday, wednesday and wednesday Post Discharge Care Discharge ?10/16/22 8:59:00 EDT Discharge Prescriptions ?ePrescribed, ??10/16/22 8:59:00 EDT Home Health Face to Face ^HomeHealthFTF Results Discharge Labs BLOOD COUNT & DIFF WBC 7.1 k/mm3 ()?? 10/15/2022 07:10 RBC 3.15 m/mm3 (Low)?? 10/15/2022 07:10 Hgb 9.9 Gm/dL (Low)?? 10/15/2022 07:10 Hct 29.9 % (Low)?? 10/15/2022 07:10 MCV 94.9 femtoliters (High)?? 10/15/2022 07:10 MCH 31.4 pg ()?? 10/15/2022 07:10 MCHC 33.1 g/dL ()?? 10/15/2022 07:10 Platelet Count 204 k/mm3 ()?? 10/15/2022 07:10 RDW-SD 54.4 femtoliters (High)?? 10/15/2022 07:10 MPV 9.7 femtoliters ()?? 10/15/2022 07:10 Nucleated RBC (Automated) 0.0 #/100 WBC'S ()?? 10/15/2022 07:10 Abs. NRBC 0.0 k/mm3 ()?? 10/15/2022 07:10 Abs. Neut 5.3 k/mm3 ()?? 10/15/2022 07:10 Abs. Lymph 0.9 k/mm3 ()?? 10/15/2022 07:10 Abs. Obion 0.8 k/mm3 ()?? 10/15/2022 07:10 Abs. Eo 0.1 k/mm3 ()?? 10/15/2022 07:10 Abs. Baso 0.0 k/mm3 ()?? 10/15/2022 07:10 Neut % 74.1 % ()?? 10/15/2022 07:10 Lymph % 12.3 % (Low)?? 10/15/2022 07:10 Obion % 11.2 % (High)?? 10/15/2022 07:10 Eos % 1.3 % ()?? 10/15/2022 07:10 Baso % 0.3 % ()?? 10/15/2022 07:10 Imm Gran 0.8 % ()?? 10/15/2022 07:10 Abs. Imm Gran 0.1 k/mm3 ()?? 10/15/2022 07:10 ?? CHEM GENERAL Sodium 132 mmol/L (Low)?? 10/15/2022 07:10 Potassium 5.0 mmol/L ()?? 10/15/2022 07:10 Chloride 93 mmol/L (Low)?? 10/15/2022 07:10 Bicarbonate Level 25 mmol/L ()?? 10/15/2022 07:10 Anion Gap 14 ()?? 10/15/2022 07:10 Glucose Level 133 mg/dL (High)?? 10/15/2022 07:10 Glucose, POC 105 mg/dL (High)?? 10/13/2022 07:38 BUN 81 mg/dL (High)?? 10/15/2022 07:10 Creatinine-Blood 6.8 mg/dL (High)?? 10/15/2022 07:10 Estimated GFR Creatinine 8 ML/MIN/1.73 M2 ()?? 10/15/2022 07:10 Calcium 7.7 mg/dL (Low)?? 10/15/2022 07:10 Phosphorus 5.9 mg/dL (High)?? 10/13/2022 10:07 Magnesium 2.3 mg/dL ()?? 10/15/2022 07:10 Protein, Total 5.5 Gm/dL (Low)?? 10/13/2022 10:07 Albumin 3.0 Gm/dL (Low)?? 10/13/2022 10:07 AG Ratio 1.2 ()?? 10/13/2022 10:07 Alkaline Phosphatase 72 units/L ()?? 10/13/2022 10:07 AST (SGOT) 20 units/L ()?? 10/13/2022 10:07 ALT (SGPT) 16 units/L ()?? 10/13/2022 10:07 Bilirubin, Total 0.7 mg/dL ()?? 10/13/2022 10:07 ?? MISC. CHEMISTRY Hold Gel Top SPECIMEN DISCARDED AFTER 1 WEEK ()?? 10/14/2022 04:44 ? SEROLOGY INF DISEASE Hepatitis B Surface Antigen NEGATIVE (N)?? 10/13/2022 10:07 Hepatitis C Ab NEGATIVE (N)?? 10/13/2022 10:07 Anti-HBS Quant 735.47 mIU/mL ()?? 10/13/2022 10:07 ? URINE OTHER Est Creatinine Clearance 10.57 mL/min ()?? 10/15/2022 08:14 ? Patient??care discussed with attending, ??Tiru. ?? Raffi Lin MD Internal Medicine PGY-3 Pager # [phone] ? 30 minutes spent on discharge * Zoraida Solorio MD: PERFORM Event Display: Discharge/Transfer Note Hospital Authored Date: I have seen and evaluated the patient on the day of service. I have discussed the case and its management with medical billing coordinator and I agree with assessment and plan as documented in resident's note * Faviola Cummings RN: PERFORM Event Display: Patient Education/Instruction Authored Date: Inpatient Adult Discharge Instructions [address] [address] Name: JOSEPH OLMOS : 1950 Visit: 10/12/2022 14:36:00 Current Date: 10/16/2022 10:54 Account: [id number] Inpatient Adult Discharge Instructions We would like to thank you for allowing us to assist you with your healthcare needs. The following includes patient education materials and information regarding your injury/illness. Our entire staffstrives to provide an excellent experience for our patients and their families. PLEASE ENSURE YOU FOLLOW-UP PER THE INSTRUCTIONS BELOW! ?? YOUR OPINION IS IMPORTANT TO US! Please complete the survey you may receive by mail or email. Your feedback will be used to make improvements to the healthcare experiences of our patients and their families. Surveys are administered by [employer] ?? If further treatment with your primary care physician or another doctor is recommended, it is important for you to keep the appointment. Call your primary care physician or return to the Emergency Department immediately if your condition worsens, fails to improve, or new symptoms develop. If you need to find a doctor, you can call [facility] for a referral at [phone] or toll free at [phone]) or log in to [email or web address].. ?? You can view and manage your care through the patient portal or by using a health care marilou of your choosing. [employer] is a website that allows you to securely view your medical information including your hospital discharge summary, office visit summaries, medications and follow-up visits. You can also request appointments, renew medications, and request access to your medical information using a health care marilou of your choosing, or just ask a question. You can enroll at [email or web address] or register during your next office visit. You have been discharged from [facility], Patient Care Unit: M7. If you have any questions regarding these instructions after you leave, please call us and we will be happy to assist you. [facility] Your Care Team Attending Physician Lyndsey ROMO, Zoraida Consulting Providers Anne ROMO, Haydee Discharging Providers Delia ROMO, Raffi Reason for Admission VTACH Your Diagnosis VT (ventricular tachycardia) Nonischemic dilated cardiomyopathy Heart failure with reduced ejection fraction End-stage renal disease Hyperkalemia Secondary hyperparathyroidism Elevated troponin Bleeding Chronic suprapubic catheter Tests Performed Below is a partial list of the tests performed during your hospitalization. You may have had other tests and procedures not included in this list. Please discuss all test results with your provider. BASIC METABOLIC PANEL BUN Calcium Level COMPLETE CBC WITH DIFF Comprehensive Metabolic Panel Creatinine Electrolytes Glucose Level GLUCOSE POC Hepatitis Panel Dial HOLD GEL TUBE MAGNESIUM Phosphorus Level XR Chest 2 Views Frontal and Lat Primary Care Provider Jan Romero MD Advance Directive Health Care Proxy on File Yes - Health Care Proxy Discharge Vitals Temperature: 99 DegF Height: 180 cm Pulse Rate: 86 bpm Weight: 74.2 kg Respiratory Rate: 18 br/min Body Mass Index: 22.56 kg/m2 Systolic Blood Pressure:??140 mm Hg??High Body surface area: 1.91 Diastolic Blood Pressure:??85 mm Hg??High ?? Oxygen Saturation:??92 %??Low ?? Studies Pending All tests and labs ordered during this hospital stay have been completed unless listed below. Please discuss all pending results with your provider listed above in these instructions. ?? COVID-19 (2019 Novel Coronavirus) PCR What to do next Instructions From Your Doctor You were admitted to [facility] for a pacemaker placement which was successfully done on 7.3. Your medications were adjusted based on recommendations of your cardiology and kidney doctors. ?? New medications: - aspirin 81 mg daily - atorvastatin 80 mg QD - calcitriol 1.25 every wednesday, , wednesday - lokelma 10 gm daily ?? Dose changes: - amiodarone 200 mg daily - lasix 80 mg on wednesday, and wednesday - carvedilol every wednesday, Wednesday, wednesday and wednesday - lasix 160 mg on wednesday, wednesday, wednesday Discharge Orders Discharge Medications JOSEPH OLMOS :1950 Visit Date:10/12/2022 Medications: Please continue your medications until treatment is completed or stopped by your provider. Medications not listed below should be discontinued. Discuss any questions related to medications with your provider. What How Much When Instructions Next Dose New Aspirin (aspirin 81 mg oral tablet, chewable) 81 Milligram Oral Daily Pickup at [facility] 1966 In the AM? New Atorvastatin (atorvastatin 80 mg oral tablet) 80 Milligram Oral Daily Pickup at [facility] 1966 Bedtime tonight New Calcitriol (calcitriol 0.25 mcg oral capsule) 1.25 Microgram Oral Every Wednesday, and Wednesday Pickup at [facility] 1966 Tomorrow (Wednesday) 10/17 New Miscellaneous Rx (prescription for outpatient physical therapy) See instructions 35463: Therapeutic Exercise. 3 times a week for 6 weeks ?? Printed Prescription New sodium zirconium cyclosilicate (sodium zirconium cyclosilicate 10 g oral powder for reconstitution) 1 pack/packet Oral Daily Pickup at [facility] 1966 In the AM Changed Carvedilol (carvedilol 3.125 mg oral tablet) 3.125 Milligram Oral Wednesday, Wednesday and Wednesday Pickup at [facility] 10/19 Changed Carvedilol (carvedilol 3.125 mg oral tablet) 3.125 Milligram Oral Every Wednesday Pickup at [facility] 10/18 Changed Furosemide (furosemide 80 mg oral tablet) 160 Milligram Oral Every Wednesday Pickup at [facility] 10/18 Changed Furosemide (furosemide 80 mg oral tablet) 160 Milligram Oral Wednesday, Wednesday and Wednesday Pickup at [facility] 10/19 Changed Furosemide (furosemide 80 mg oral tablet) 80 Milligram Oral Every Wednesday, and Wednesday Pickup at [facility] 1966 Tomorrow (Wednesday) 10/17 Changed amiODARONE (amiodarone 200 mg oral tablet) 200 Milligram Oral Daily Pickup at [facility] 1966 Tomorrow (Wednesday) 10/17 Unchanged Acetaminophen (Tylenol 325 mg oral tablet) 2 tab(s) Oral Every 6 hours as needed for Pain , Moderate As needed Unchanged Calcium Acetate (calcium acetate 667 mg oral tablet) 3 tab(s) Oral 3 times a day 3 PM today Unchanged Calcium Carbonate (calcium carbonate 500 mg (200 mg elemental calcium) oral tablet, chewable) 2 tab(s) Chew 3 times a day before meals Before lunch today Unchanged Cholecalciferol (Vitamin D3 oral tablet) 1 tab(s) Oral Daily In the AM Unchanged Multivitamin (Triphrocaps oral capsule) TAKE 1 CAPSULE BY MOUTH ONCE DAILY ?? In the AM Pharmacy Information [facility] 1966: [address], [place] [id number] [phone] Test Results Below is a partial list of the most recent Laboratory test results done prior to this discharge. You may have had other tests and procedures not included in this list. Please discuss all test resultswith your provider. Est Creatinine Clearance - 10.57 mL/min (10/15/2022) BASIC METABOLIC PANEL (10/15/2022) ???Sodium - 132 mmol/L???Potassium - 5.0 mmol/L???Chloride - 93 mmol/L???Bicarbonate Level - 25 mmol/L???Anion Gap - 14???Glucose Level - 133 mg/dL???BUN - 81 mg/dL???Creatinine-Blood - 6.8 mg/dL???Estimated GFR Creatinine - 8 ML/MIN/1.73 M2???Calcium - 7.7 mg/dL BUN (10/13/2022) ???BUN - 79 mg/dL Calcium Level (10/13/2022) ???Calcium - 8.0 mg/dL COMPLETE CBC WITH DIFF (10/15/2022) ???WBC - 7.1 k/mm3???RBC - 3.15 m/mm3???Hgb - 9.9 Gm/dL???Hct - 29.9 %???MCV - 94.9 femtoliters???MCH - 31.4 pg???MCHC - 33.1 g/dL???Platelet Count - 204 k/mm3???RDW-SD - 54.4 femtoliters???MPV - 9.7femtoliters???Nucleated RBC (Automated) - 0.0 #/100 WBC'S???Abs. NRBC - 0.0 k/mm3???Abs. Neut - 5.3 k/mm3???Abs. Lymph - 0.9 k/mm3???Abs. Obion - 0.8 k/mm3???Abs. Eo - 0.1 k/mm3???Abs. Baso - 0.0 k/mm3???Neut % - 74.1 %???Lymph % - 12.3 %???Obion % - 11.2 %???Eos % - 1.3 %???Baso % - 0.3 %???Imm Gran- 0.8 %???Abs. Imm Gran - 0.1 k/mm3 Comprehensive Metabolic Panel (10/13/2022) ???Sodium - 136 mmol/L???Potassium - 5.4 mmol/L???Chloride - 94 mmol/L???Bicarbonate Level - 24 mmol/L???Anion Gap - 18???Glucose Level - 132 mg/dL???BUN - 81 mg/dL???Creatinine-Blood - 6.8 mg/dL???Estimated GFR Creatinine - 8 ML/MIN/1.73 M2???Calcium - 7.8 mg/dL???Protein, Total - 5.5 Gm/dL???Albumin - 3.0 Gm/dL???AG Ratio - 1.2???Alkaline Phosphatase - 72 units/L???AST (SGOT) - 20 units/L???ALT(SGPT) - 16 units/L???Bilirubin, Total - 0.7 mg/dL Creatinine (10/13/2022) ???Creatinine-Blood - 6.9 mg/dL???Estimated GFR Creatinine - 8 ML/MIN/1.73 M2 Electrolytes (10/13/2022) ???Sodium - 136 mmol/L???Potassium - 5.5 mmol/L???Chloride - 94 mmol/L???Bicarbonate Level - 25 mmol/L???Anion Gap - 17 Glucose Level (10/13/2022) ???Glucose Level - 133 mg/dL GLUCOSE POC (10/13/2022) ???Glucose, POC - 105 mg/dL Hepatitis Panel Dial (10/13/2022) ???Hepatitis B Surface Antigen - NEGATIVE???Hepatitis C Ab - NEGATIVE???Anti-HBS Quant - 735.47 mIU/mL HOLD GEL TUBE (10/14/2022) ???Hold Gel Top - SPECIMEN DISCARDED AFTER 1 WEEK MAGNESIUM (10/15/2022) ???Magnesium - 2.3 mg/dL Phosphorus Level (10/13/2022) ???Phosphorus - 5.9 mg/dL Allergies (NKA means No Known Allergies) NKA Problems Active Problems??(5) Cardiomyopathy, nonischemic?? End stage renal disease on dialysis?? Neurogenic bladder?? Obstructive uropathy?? SOB (shortness of breath)?? Education Materials Below is the list of Educational Leaflet Providered with your Discharge Instructions. Heart Failure Discharge Instructions for Heart Failure?? Chronic Kidney Disease (CKD)?? Diet for Chronic Kidney Disease?? Hyperkalemia?? Discharge Instructions for Hyperkalemia?? Discharge Instructions for Cardiomyopathy?? Amiodarone Oral Tablet?? Sodium Zirconium Cyclosilicate Powder For Oral Suspension?? Valuables and Belongings I fully understand and agree that [facility] accepts no responsibility for all my personal property including clothing, toilet articles, radios, jewelry, dentures, hearing aids, rings, money, or any other property that is in my possession or is brought to me after admission. I understand certain valuables may be placed in a hospital safe for a short period of time. I understand that the hospital is not liable for loss or damage due to accident, fire, or other natural occurrence while said property is in the safe. I accept full responsibility for any personal property that I keep with me, and will not hold the hospital responsible in case of loss or disappearance. I acknowledge that i have been encouraged to send valuables and belongings home. ?? Review of Valuable and Belonging List: With witness Date for Pt to Sign Valuables/Belongings: 10/12/22 19:16:00 ?? Other Discharge Information ? Pulmonary Rehab Status?? Pulmonary Rehab Discharge Status?? Respiratory Rate: 18 br/min ? Common Emergency Awareness Tips IS IT A STROKE? Act FAST and Check for these signs: FACE Does the face look uneven? ARM Does one arm drift down? SPEECH Does their speech sound strange? TIME Call at any sign of stroke ?? Heart Attack Signs Chest discomfort: Most heart attacks involve discomfort in the center of the chest and lasts more than a few minutes, or goes away and comes back. It can feel like uncomfortable pressure, squeezing, fullness or pain. Discomfort in upper body: Symptoms can include pain or discomfort in one or both arms, back, neck, jaw or stomach. Shortness of breath: With or without discomfort. Other signs: Breaking out in a cold sweat, nausea, or lightheaded. Remember, MINUTES DO MATTER. If you experience any of these heart attack warning signs, call to get immediate medical attention! ?? Smoking can increase your chances of developing chronic health problems and can cause harmful effects to other family members in your house. If you smoke, you are strongly encouraged to quit. Please call [facility] at [phone] or [phone]-[facility] ([phone]) or log in to [email or web address] for referrals to smoking cessation programs. ?? 981 Suicide & Crisis Lifeline is available 02/11 if you or someone you know needs to find a reason to keep living. By calling 055 you'll be connected to a skilled, trained counselor at a crisis center in your area. INPATIENT DISCHARGE INSTRUCTIONS SIGNATURE PAGE JOSEPH OLMOS Location:[facility] Registration Date and Time:10/12/2022 14:36 EDT Primary Care Physician: Jan Romero MD, Attending Physician: Zoraida Solorio MD, I JOSEPH OLMOS, have received the above patient education materials/instructions and have verbalized understanding. If ambulance or transport services are being used I further acknowledge being given achoice of service. ?? If you need to contact me, please call me at this number: . Patient/Paper Supervisor Name: Patient/Paper Supervisor Signature: Relationship to Patient: Witness Name/Signature: Date: * Faviola Cummings RN: PERFORM Event Display: Patient Education Leaflets Authored Date: [id number] Living with a Pacemaker ?? 00801 Living with a Pacemaker After you have a pacemaker implanted, you can do almost everything you did before your surgery. Here are tips for living well with a pacemaker. Carry an ID card When you first get your pacemaker, you???ll be given an ID card to carry with you. This card has important information about the device. Show it to any doctor, dentist, or other healthcare provider you visit. Pacemakers may set off metal detectors. So you may need to show your card to security personnel, such as those in the airport security checkpoint. ?? What to watch for ??? Be careful when using cell phones and electronic devices. Keep them at least 6 inches away fromyour pacemaker. It's safest to hold all cell phones to the ear farthest from your pacemaker or use the speaker mode setting. Don???t carry your phone or electronic device in your chest pocket, over the pacemaker. Experts advise carrying your cell phone and other electronics in a pocket or bag below your waist. Most cell phones and electronic devices don't interfere with pacemakers. But some cell phones and electronic devices, such as smart watches, use powerful magnets for wireless charging that may interfere with the normal function of your pacemaker. The magnet used for charging or other magnet accessories can also interfere with the normal function of your pacemaker or ICD. These devicesshould be stored at least 15 inches away from your pacemaker. Follow any other instructions given to you by your healthcare provider or from the maker of your pacemaker or ICD. ??? Stay away from very strong magnets. These include hand-held security wands, metal detectors, and anti-theft systems often found in the workplace, airport, or other high-security areas. Show your ID card when you go through security. They also include MRI machines. Many pacemaker devices are considered safe for havingan MRI (MR-conditional devices). But safety precautions must still be used. Check with your pacemaker healthcare provider for clearance if you need an MRI. ??? Stay away from strong electrical burris. These??are made by radio transmitting towers and Kind[employer] radios. They are also made by heavy-duty electrical equipment. A running engine makes an electrical field. Don't lean over the open sifuentes of a running car and avoid working on alternators.??If you use any large power tools, such as an industrial architectural intern, talk to your doctor.??Most household and yard appliances will not cause any problems. ??? Call your doctor if you have any symptoms that your pacemaker isn't working correctly. These include dizziness or palpitations. If a signal interferes If your pacemaker is near one of the devices described above, it may interfere with the electrical signal and stop the pacemaker from working correctly. If you think you were exposed to a signal likethis, call your doctor and explain what happened. Also call your doctor if you sense any interference with your device. ?? What???s OK Below are some of the many things that are safe to use when you have a pacemaker: ??? Microwave ovens ??? Computers ??? Hair dryers ??? Household power tools ??? Radios, TVs, and CD players ??? Bluetooth headsets ??? Electric blankets and heating pads ??? Vacuum vp of marketing ??? Riding in a car ?? Follow up Plan to have regular checkups with your healthcare provider to check the battery life of your pacemaker. Your provider can also make sure the pacemaker is working correctly. For many devices, device function and battery life can be checked with a remote monitor set up in your home. On average, thisshould happen every 6 months, or as advised by your healthcare provider. Battery life, lead wire condition, and various functions are checked by doing a device interrogation. During an interrogation, the device is connected to a device sql programmer analyst using a special wand placed on the skin over the pacemaker. The data is sent from the device to the sql programmer analyst and assessed. Most in-home device interrogation systems use wireless technology to connect the device to special equipment. The equipment records the data and sends the information to your doctor. Depending on your device and how much your body uses the pacing functions of the pacemaker, you will need a new pacemaker generator (or battery) implanted at some point, usually about every 8 to 10 years. ?? Last Reviewed Date: 2020 ?? 3690-6795 [employer]. All rights reserved. This information is not intended as a substitute for professional medical care. Always follow your healthcare professional's instructions. ?? * Zoila LINARES, Faviola Henry: PERFORM Event Display: Patient Education Leaflets Authored Date: [id number] Discharge Instructions for Pacemaker Implantation ?? 44305 Discharge Instructions for Pacemaker Implantation You have had a procedure to insert a pacemaker. Once inside your body, this small electronic devicehelps keep your heart from beating too slowly. It can help you feel better and have more energy. Asyou recover, follow all of the instructions you are given, including those below. Activity ??? Follow the instructions you are given about limiting your activity. ??? If you are fitted with an arm sling, keep your arm in the sling for as long as your healthcare provider tells you to. Most often, the sling will be removed the next day. But you may be told to sleep with it on for a period to prevent damage to the pacemaker while it's healing. ??? Don't raise your arm on the incision side above shoulder level or stretch your arm behind your back for as long as directed by your healthcare provider. This gives the leads a chance to secure themselves inside your heart. ??? Don'tdrive until your healthcare provider says it's OK. Have someone drive you home after the procedure.??? Ask your healthcare provider when you can expect to return to work. Depending on the type of work you do, you may have limits until your healthcare provider says it's OK for unrestricted activity. ??? You can still exercise. It's good for your body and your heart. Talk with your healthcare provider about an exercise plan and the types of exercise to limit the risk of damaging your pacemaker. ?? Other precautions ??? Follow your healthcare provider's directions carefully for wound care. If there is a dressing, ask whether you should remove it or keep it on until your next visit. Never put any creams, lotions, or products like peroxide on an incision unless your healthcare provider tells you to. Don't get the incision wet until your provider says it's OK. ??? Check your incision for signsof infection. These include redness, swelling, drainage, and warmth. Do this for 7 days, or as advised by your healthcare provider. ??? Before you have any treatment, tell all healthcare providers, including your dentist, that you have a pacemaker. ??? Carry your pacemaker ID card with you at all times. The card has information about your pacemaker. You can show this card if your pacemaker sets off a metal detector. Also show it so you don't need to be screened with a hand-held security wand. ??? Be careful when using cell phones and other electronic devices. Keep them at least 6 inches away from your pacemaker. It's safest to hold all cell phones to the ear farthest from your pacemaker or use the speaker mode setting. Don???t carry your phone or electronic device in your chest pocket, over the pacemaker. Experts advise carrying your cell phone and other electronics in a pocket or bag below your waist. Most cell phones and electronic devices don't interfere with pacemakers. But some cell phones and electronic devices, such as smartwatches and headphones, use powerful magnets for wireless charging that may interfere with how your pacemaker works. The magnet used for charging or other magnet accessories can also interfere with how your pacemaker works. These devices should be keptat least 12 inches away from your pacemaker when wirelessly charging or stored. Follow any other instructions given to you by your healthcare provider and from the maker of your pacemaker. ??? Stay away from strong magnets. An example is handheld security wands. Most pacemakers are now safe to use with MRI scanners. Ask your healthcare provider if you have such a pacemaker. ??? Stay away from strong electrical burris. Examples are those made by radio transmitting towers, ham radios, and heavy-duty electrical equipment. ??? Don't lean over the open sifuentes of a running car. A running engine creates an electrical field. Most household and yard appliances will not cause any problems. If you useany large power tools, such as an [employer] architectural intern, talk with your healthcare provider. ??? Follow any other instructions from your healthcare provider about other devices and procedures to stayaway from. ?? Follow-up care ??? See your hand ornament maker in the next 7 to 10 days. Call and make an appointment as soon as you get home. ??? Make regular follow-up appointments with your healthcare provider. They will check the pacemaker to make sure it's working properly. ??? Plan on having periodic checkups withyour healthcare provider to assess the battery life of your pacemaker. Depending on your device andhow much your body uses the pacing functions of the pacemaker, you will need a new device generatorimplanted at some point. This is generally about every 5 to 7 years. ??? Some pacemakers have a built-in antenna that can send information such as trouble alerts over the Internet to your healthcare [place]. Ask your healthcare provider if your pacemaker is capable of remote monitoring. ?? When to call your healthcare provider Call your healthcare provider right away if you have any of these: ??? Dizziness ??? Lack of energy??? Twitching chest muscles ??? Rapid pulse or pounding heartbeat ??? Shortness of breath ??? Pain around your pacemaker ??? Fever above 100.4?? F (38?? C) or higher, or as directed by your healthcare provider ??? Other signs of infection such as redness, swelling, drainage, or warmth at the incision site ??? Your incision is not healing, or your incision separates or opens ??? Hiccups that won'tstop ??? Redness, severe swelling, drainage, worsening pain, bleeding, or warmth at the incision site ??? Your pacemaker generator feels loose or like it is wiggling in the pocket under the skin ?? Call 911 Call 911 if you have: ??? Chest pain ??? Trouble breathing ??? Fainting ?? Last Reviewed Date: 2021 ?? [employer]. All rights reserved. This information is not intended as a substitute for professional medical care. Always follow your healthcare professional's instructions. ?? * Zoila LINARES, Faviola Henry: PERFORM Event Display: Patient Education Leaflets Authored Date: [id number] Heart Failure Discharge Instructions for Heart Failure ?? 153 Discharge Instructions for Heart Failure The heart is a muscle that pumps oxygen-rich blood to all parts of the body. When you have heart failure, the heart is not able to pump as well as it should. Blood and fluid may back up into the lungs (congestive heart failure), and some parts of the body don ???t get enough oxygen-rich blood to work normally. These problems lead to the symptoms of heart failure. Heart failure can occur due to aninjury to the heart or from natural processes. You can control symptoms of heart failure with some lifestyle changes and by following your doctor's advice. Home care Activity Ask your healthcare provider about an exercise program. You can benefit from simple activities suchas walking or gardening. Exercising most days of the week can make you feel better. Don't be discouraged if your progress is slow at first. Rest as needed. Stop activity if you develop symptoms such as chest pain, lightheadedness, or significant shortness of breath. Find activities that you enjoy, such as brisk walking, dancing, swimming, or gardening. These will help you stay active and strengthen your heart. Diet Follow a heart healthy diet. And make sure to limit the salt (sodium) in your diet. Salt causes your body to hold water. This makes your heart work harder as there is more fluid for the heart to pump. Limit your salt by doing the following: ??? Limit canned, dried, packaged, and fast foods. ??? Don't add salt to your food. ??? Season foods with herbs instead of salt. ??? Watch how much liquids you drink. Drinking too much can make heartfailure worse. Talk with your health care provider about how much you should drink each day. ??? Limit the amount of alcohol you drink. It may harm your heart. Women should have no more than 1 drink a day and men should have no more than 2. ??? When you eat out, request that your meals have no added salt. Tobacco If you smoke, it's very important to quit. Smoking increases your chances of having a heart attack by harming the blood vessels that provide oxygen to your heart. This makes heart failure worse. Quitting smoking is the number one thing you can do to improve your health. Enroll in a stop-smoking program to improve your chances of success. Talk with your healthcare provider??about medicines or nicotine replacement therapy to help you quit smoking. Ask your healthcare provider about smoking cessation support groups. Medicine Take your medicines exactly as prescribed. Learn the names and purpose of each of your medicines. Keep an accurate medicine list and current dosages with you at all times. Don't skip doses. If you miss a dose of your medicine, take it as soon as you remember. If you miss a dose and??it's almost time for your next dose, just wait and take your next dose at the normal time. Don't take a double dose. If you are unsure, call your doctor's office. Make sure not to mix up your medicines or forget what you've taken the same day. Weight monitoring Weigh yourself every day. A sudden weight gain can mean your heart failure is getting worse. Weigh yourself at the same time of day and in the same kind of clothes. Ideally, weigh yourself first thing in the morning after you empty your bladder, but before you eat breakfast. Your healthcare provider will show you how to track your weight. He or she will also discuss with you when you should call if you have a sudden, unexpected increase in your weight. In general, your healthcare provider may ask you to report if your weight goes up by more than 2 pounds in 1 day,?? 5 pounds in 1 week, or whatever weight gain you were told by your doctor. This is asign that you are retaining more fluid than you should be. Clues to weight gain include checking your ankles for swelling, or noticing you are short of breath when you lie down. Follow-up care Make a follow-up appointment as directed. Depending on the type and severity of heart failure you have, you may need follow-up as early as 7 days from hospital discharge. Keep appointments for checkups and lab tests that are needed to check your medicines and condition. Recognize that your health and even survival depend on your following medical recommendations. Symptoms Heart failure can cause a variety of symptoms, including: ??? Shortness of breath ??? Trouble breathing at night, especially when you lie down ??? Swelling in the legs and feet or in the belly (abdomen) ??? Becoming easily fatigued ??? Irregular or rapid heartbeat ??? Weakness or lightheadedness ??? Swelling of the neck veins It is important to know what to do if symptoms get worse or if you develop signs of worsening heartfailure. ?? When to see your healthcare provider Call your doctor right away if you have any of these signs of worsening heart failure: ??? Sudden weight gain (more than 2 pounds in 1 day or 5??pounds in 1 week, or whatever weight gainyou were told to report by your doctor) ??? Trouble breathing not related to being active ??? New or increased swelling of your legs or ankles ??? Swelling or pain in your abdomen ??? Breathing trouble at night (waking up short of breath, needing more pillows to breathe) ??? Frequent coughing that doesn't go away ??? Feeling much more tired than usual Call 911 Call 911 right away if you have: ??? Severe shortness of breath, such that you can't catch your breath even while??resting ??? Severe chest pain that does not resolve with rest or nitroglycerin ??? [place], foamy mucus with cough and shortness of breath ??? A continuous rapid or irregular heartbeat ??? Passing out or fainting ??? Stroke symptoms such as sudden numbness or weakness on one side of your face, arm, or leg or sudden confusion, trouble speaking or vision changes ? Please refer to the Heart Failure Handbook for more information. ? * Event Display: Hemodynamic Procedure Report Authored Date: History and physical note * Event Display: History and Physical Hospital Authored Date: * Event Display: History and Physical Hospital Authored Date: * Anthony Abebe MD: PERFORM Event Display: History and Physical Hospital Authored Date: Patient: ??JOSEPH OLMOS ? Age:??72 Years?Sex:??Male?:??1950?? 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 [place], on 10/07 he felt his chest fluttering with discomfort.?? He denies any significant pain or nausea or vomiting or lightheadedness with the episode.?? He drovehimself to the hospital as he believes EMS takes really long time from his past experience and in the ED was found to be in V. tach with rates in the 190s requiring cardioversion.?? He was initially started on amiodarone drip but was then transition to oral amiodarone.?? He was found to have elevated troponins for which she was started on heparin drip.?? He underwent cardiac cath showed no significant CAD, EF was 15 to 20% with severe dilated left ventricle.?Developed right perinephric bleedin the setting of heparin drip following which??h heparin drip was discontinued.?? His H&H havebeen stable??but downtrending and he did not require any blood transfusion.?? He was found to have hyperkalemia today for which he had a dialysis session for 2 hours recheck potassium.?? He also received Lokelma today.?? On my interview??he is s/p ICD placement,??denies any pain??in his chest or palpitation. ??No shortness of breath.?? No abdominal pain??but does have some discomfort in the left lower??flank??at the site of the bleeding but feels that pain is improved. ??No??urinary complaints.??No constipation or diarrhea. ??No??nausea or vomiting. ??No??lightheadedness or confusion or heada lupillo or weakness.?? He is in good spirits. Review of Systems All other review of systems were negative with the exception of those noted above in the HPI.?? Objective Measurements?? Height: 180 cm (10/13/22) Weight: 74.2 kg (10/13/22) Dry Weight: 75 kg (10/12/22) Body Mass Index: 22.56 kg/m2 (10/12/22) ? Vital Signs?? Temperature: 98.2 DegF (10/13/22 01:36:00) Temperature Route: Temporal (10/13/22 01:36:00) Pulse Rate:??91 bpm??High (10/13/22 01:36:00) Heart Rate Monitored: 71 bpm (10/12/22 20:15:00) Respiratory Rate: 20 br/min (10/13/22 01:36:00) Systolic Blood Pressure: 114 mm Hg (10/13/22 01:36:00) Diastolic Blood Pressure: 72 mm Hg (10/13/22 01:36:00) Blood pressure sites: Arm, right (10/13/22 01:36:00) Mean Arterial Pressure: 86 mm Hg (10/13/22 01:36:00) Pulse Pressure: 42 mm Hg (10/13/22 01:36:00) Oxygen Saturation: 96 % (10/13/22 01:36:00) Mode of Delivery (Oxygen): Room air (10/13/22 01:36:00) Early Warning Score: 0 (10/13/22 01:37:40) ? Intake/Output? 10/12 14:36 10/13 07:00 10/12 07:00 10/11 07:00 10/10 07:00 ?? 10/13 05:35 10/13 05:35 10/13 06:59 10/12 06:59 10/11 06:59 Intake ? 1200 ?0 ? 1200 ?0 ?0 Output ?0 ?0 ?0 ?0 ?0 Net Total ? 1200 ?0 ? 1200 ?0 ?0 ? Physical Exam Constitutional: Alert, in no acute distress. Head EENT: Extraocular muscle movement intact.??Moist mucous membranes.?? Neck: Supple. Respiratory: Right chest??pacemaker insertion dressing clean and dry,??clear to auscultation. No wheezing or crackles. No use of accessory muscles. Cardiovascular: S1S2 regular. No murmurs, rubs or gallops. Gastrointestinal: Abdomen soft, left lower quadrant/flank with mild tenderness on deep palpation??and??hematoma-tenderness??improved??per patient, non- distended. Normal bowel sounds. Genitourinary: No CVA tenderness. Extremities: No lower extremity pitting??edema. No cyanosis or clubbing.?? Left upper extremity fistula??with good thrill Neurologic: AAOx3, Speech normal. No focal neurological deficits. Skin: Chronic skin changes in lower extremities Psychiatric: Normal mood and affect Assessment/Plan Diagnoses 1. ??VT (ventricular tachycardia) ??(I47.20) 2. ??Nonischemic dilated cardiomyopathy ??(I42.0) 3. ??Heart failure with reduced ejection fraction ??(I50.20) 4. ??End-stage renal disease ??(N18.6) 5. ??Hyperkalemia ??(E87.5) 6. ??Secondary hyperparathyroidism ??(N25.81) 7. ??Elevated troponin ??(R77.8) 8. ??Bleeding ??(R58) 9. ??Chronic suprapubic catheter ??(Z93.59) ?? VT (ventricular tachycardia) (I47.20):??S/P successful right sided BIV ICD device today with resynchronization -Continue amiodarone 200 mg daily??at lower dose??as ordered by??Dr. Vee.??He has??amiodarone??on his medication list which have not discontinued, this will need to be clarified in the morning??as I do not see any recent fills.?? -Discontinuing??Coreg as recommended ? Nonischemic dilated cardiomyopathy (I42.0):??: ?? Heart failure with reduced ejection fraction (I50.20):??:??Started on aspirin??and [facility].??Patient reports not being on aspirin as his blood is very thin .??He has been getting aspirin??based on medical records??since??10/08.?His Hb has down trended from 14.2 on presentation to 11.1 today??priorto transfer.?Likely slow downtrend due to??acute bleed that happened after heparin.??We will check hemoglobin??in the morning??and??continue aspirin??for now, day team to discontinue or discuss with cardiology if hemoglobin continues to drop further -Not on ALETHA inhibitor -Coreg discontinued and recommended medical neurology team -Continue statin -Furosemide 160 mg was ordered by cardiology and then discontinued,??based on note??wanted Lasix continued, can clarify in the morning, holding for now PT consult roberts deconditioning ?? Bleeding (R58):??Large left perinephric hematoma??after starting heparin --CT with large left perinephric hematoma, bilateral lower lobe atelectasis versus less likely consolidation. No stones or bladder wall thickening -??hemoglobin has down trended but stable, Hemoglobin was 11.1 today down from 12 on 10/11 and 12.2 on 10/10, was 14.2 on presentation on 10/07 2022 -Monitor hemoglobin,??not on??heparin??GTT or chemical DVT prophylaxis.??Hold aspirin and??discussed with cardiology if continues to??drop hemoglobin ?? End-stage renal disease (N18.6):? Hyperkalemia (E87.5):??: ?? Secondary hyperparathyroidism (N25.81):??-on hemodialysis Wednesday -Consult RTANE -He was treated with dialysis today for hyperkalemia, Potassium was 5.9 today morning.??trend K andother lytes -Low potassium diet ?? Elevated troponin (R77.8):??in the setting of end-stage renal disease and cardioversion most likelyrelated to ATN procedure, less likely ACS ?? Chronic suprapubic catheter (Z93.59):??Monitor urine output ?? DVT prophylaxis, pneumatic boots, holding heparin in the setting of??downtrending hemoglobin ?? Full code ? Histories Allergies Allergies ?(Active and Proposed Allergies Only) NKA? (Severity: Unknown severity, Onset: Unknown) ? Past Medical History/Problem List/past surgical history Active Problems??(5) Cardiomyopathy, nonischemic End stage renal disease on dialysis Neurogenic bladder Obstructive uropathy SOB (shortness of breath) See HPI ? Social History Alcohol Details:??Use: Never. Details:??Use: Never. Home/Environment Details:??Living situation: Home/Independent. ??Lives with: Alone. Substance Abuse Details:??Use: Never. Details:??Use: Never. Tobacco Details:??Use: Never (less than 100 in lifetime). ? Family History No family history of VT ? Medications Home Medications Acetaminophen (Tylenol 325 mg oral tablet)?650?Milligram?2?tablet?By Mouth?Every 6 hours?as needed?Pain , Moderate amiODARONE (amiodarone 200 mg oral tablet)?See Instructions?400mg daily by mouth for 7 days (03/03-03/09) then 1 tablet by mouth daily Calcium Acetate (calcium acetate 667 mg oral tablet)?3?tab(s)?2,001?Milligram?By Mouth?3 times a day Calcium Carbonate (calcium carbonate 500 mg (200 mg elemental calcium) oral tablet, chewable)?1,000?Milligram?2?tablet?Chew?3 times a day before meals Carvedilol (carvedilol 3.125 mg oral tablet)?3.125?Milligram?1?tablet?By Mouth?2 times a day Cholecalciferol (Vitamin D3 oral tablet)?1?tab(s)?10?Microgram?By Mouth?Daily Furosemide?160?Milligram?By Mouth?Daily Multivitamin (Triphrocaps oral capsule)?TAKE 1 CAPSULE BY MOUTH ONCE DAILY ? Inpatient Medications Medications (13) Active SCHEDULED: (6) Amiodarone 200 mg Tablet (amiodarone 200 mg oral tablet) ??200 mg, By Mouth, Daily Aspirin 81 mg Chew Tablet (aspirin 81 mg oral tablet, chewable) ??81 mg, By Mouth, Daily Atorvastatin 80 mg Tablet (atorvastatin 80 mg oral tablet) ??80 mg, By Mouth, Daily Calcium Acetate 667 mg Tablet (calcium acetate 667 mg oral tablet) ??1,334 mg 2 tablet, By Mouth, 3times a day Folic Acid/Vit B Comp/C Capsule (Nephrocap Capsule) ??1 capsule, By Mouth, Daily NaCl 0.9% Flush 3ml (NaCL 0.9% Flush) ??3 mL, IV Push, Every 8 hours CONTINUOUS: (0) PRN: (7) Acetaminophen 325 mg Tablet (Acetaminophen Tablet) ??650 mg, By Mouth, Every 4 hours Dextromethorphan-Guaifenesin 20 mg-200 mg/10 mL Liqu UD (Robitussin DM Liquid) ??10 mL, By Mouth, Every 4 hours Melatonin 3 mg Tablet (Melatonin Tablet) ??3 mg, By Mouth, Daily at bedtime NaCl 0.9% Flush 3ml (NaCL 0.9% Flush) ??3 mL, IV Push, Every 8 hours Polyethylene Glycol 17 Gm Powder (MiraLax Powder) ??17 Gm 1 pack/packet, By Mouth, Daily Senna 8.6 mg / Docusate 50 mg tablet (Docusate/Senna Tablet) ??1 tablet, By Mouth, 2 times a day Simethicone 80 mg Chewable Tablet (Simethicone Tablet) ??80 mg, Chew, 3 times a day ? Results Recent Labs No labs resulted between 10/12/2022 00:00 and 10/13/2022 05:35? EKG study * Event Display: EKG Authored Date: * Event Display: EKG Authored Date: * Event Display: ECG 12-Lead Authored Date: Please click on pdf link to open report * Event Display: ECG 12-Lead Authored Date: Ventricular Rate: 72 BPM Atrial Rate: 73 BPM P-R Interval: 184 ms QRS Duration: 118 ms Q-T Interval: 418 ms QTC Calculation(Bazett): 457 ms P Harned: -29 degrees R Harned: -38 degrees T Harned: 98 degrees Atrial-sensed ventricular-paced rhythm with frequent AV dual-paced complexes Biventricular pacemaker detected Abnormal ECG When compared with ECG of 12-OCT-2022 16:19, MANUAL COMPARISON REQUIRED, DATA IS UNCONFIRMED Confirmed by VERA DAILEY MD ([id number]) on 10/14/2022 5:10:14 PM [place]: VERA DAILEY MD * Event Display: ECG 12-Lead Authored Date: Please click on pdf link to open report * Event Display: ECG 12-Lead Authored Date: Ventricular Rate: 66 BPM Atrial Rate: 66 BPM P-R Interval: 186 ms QRS Duration: 154 ms Q-T Interval: 468 ms QTC Calculation(Bazett): 490 ms P Harned: 13 degrees R Harned: -22 degrees T Harned: 148 degrees Sinus rhythm with frequent Premature ventricular complexes Left bundle branch block Abnormal ECG When compared with ECG of 12-OCT-2022 16:18, MANUAL COMPARISON REQUIRED, DATA IS UNCONFIRMED Confirmed by VERA DAILEY MD () on 10/14/2022 5:10:22 PM [place]: VERA DAILEY MD * Event Display: ECG 12-Lead Authored Date: Please click on pdf link to open report * Event Display: ECG 12-Lead Authored Date: Ventricular Rate: 66 BPM Atrial Rate: 66 BPM P-R Interval: 170 ms QRS Duration: 160 ms Q-T Interval: 474 ms QTC Calculation(Bazett): 496 ms P Harned: -22 degrees R Harned: -21 degrees T Harned: 145 degrees Sinus rhythm with occasional Premature ventricular complexes Left bundle branch block Abnormal ECG When compared with ECG of 29-JAN-2018 02:32, Premature ventricular complexes are now Present Left bundle branch block is now Present Confirmed by VERA DAILEY MD () on 10/14/2022 5:10:08 PM [place]: VERA DAILEY MD Cardiology * Event Display: Cardiac Rhythm Strips Authored Date: Hospital Progress note * Raffi Lin MD: PERFORM, MODIFY, MODIFY Event Display: Progress [facility] Hospital Authored Date: [id number] Patient: ??JOSEPH OLMOS ? Age:??72 Years?Sex:??Male?:??1950?? Subjective Overnight: TARYN Subjectively: Pt reports feeling better. He has intermittent knee and hand pain related to his arthritis. Review of Systems A full review of systems was completed and is otherwise negative except as mentioned above. Objective ?? Physical Exam General: sitting comfortably, alert, in no acute distress HEENT: EOMI, PERRLA, moist oral mucosa Cardiovascular: soft bibasilar crackles, systolic murmur at RUSB GI: soft, non-tender, non-distended abdomen with normal bowel sounds Neuro: AAO x3, Speech: normal, no facial droop, moving all 4 extremities Assessment/Plan 72 year old male with??a medical history of ESRD on HD via Left AV fistula, NIDCM LVEF 15%, LBBB . He was initially admitted to [facility]??for presented with 1 hour VT vs SVT w aberrancy treatedwith amiodarone.??He was also found??to??have??NSTEMI,??and??underwent cardiac cath which??showed??no significant CAD.?? His hospital course was complicated by acute abdominal pain found to be secondary to perinephric bleed, which resolved with cessation of heparin.?? He was transferred to [facility] for EP evaluation for BiV ICD placement which was done on 10/12 ?? VT (ventricular tachycardia) (I47.20):??S/P successful right sided BIV ICD 10/12 with resynchronization Nonischemic dilated cardiomyopathy (I42.0) Heart failure with reduced ejection fraction (I50.20):?? Plan: - Continue amiodarone 200 mg daily?? - Continue statin - Continue Carvedilol 3.125 mg on non-HD days ([place], MWF) and Lasix 80 mg TTS and Lasix 160 mg everySun, MWF - Cardiology following, appreciate recs ?? Recent Bleeding (R58): Large left perinephric hematoma??after starting heparin --CT with large left perinephric hematoma, bilateral lower lobe atelectasis versus less likely consolidation. No stones or bladder wall thickening -??hemoglobin has down trended but stable around 11, 12.2 on 10/10, was 14.2 on presentation to [facility]??on??10/07 2022 Hb 9.9 from 11, however baseline is around 10 and vitals have been stable Plan: - Hold chemical DVT prophylaxis -??Continue aspirin ?? End-stage renal disease (N18.6)on hemodialysis Wednesday Hyperkalemia (E87.5)?? Secondary hyperparathyroidism (N25.81):?? Plan: - RTANE following - Continue HD TTS - 10 gm lokelma daily per renal - Low potassium diet ?? Chronic, Stable or Resolved Conditions: Chronic suprapubic catheter (Z93.59):??Monitor urine output Elevated troponin (R77.8):??in the setting of end-stage renal disease and cardioversion most likelyrelated to ATN procedure, less likely ACS ?? Quality Measures DVT prophylaxis: pneumatic boots, holding heparin in the setting of??recent perinephric bleed at OSH Diet: Renal Code Status: Full Pending PT eval Patient's brother Coleman updated - 10/15 ?? Patient??care discussed with attending, ??Tiru. ?? Raffi Lin MD Internal Medicine PGY-3 Pager # [phone] ? * Zoraida Solorio MD: PERFORM Event Display: Progress Note Hospital Authored Date: I have seen and evaluated the patient on the day of service. I have discussed the case and its management with medical billing coordinator and I agree with assessment and plan as documented in resident's note * Vannessa Mays: PERFORM, SIGN, VERIFY, MODIFY, SIGN Event Display: Progress Note Hospital Authored Date: Patient: JOSEPH OLMOS Age: 72 years Sex: Male : 1950 Associated Diagnoses: None Author: Vannessa Mays Findings Narrative/Incidental 3.5 hr tx tolerated fairly, BP issues goal decreased, gauze drsg applied to MIO AVF per protocol, no bleeding noted, vital signs stabilized with post tx vitals of BP 133/63, pulse 70, and resp 18, net fluid removed 1500 mls, -2.3 % cirt line change. Discharge Information Rehabilitation Discharge : Rehab Discharge Index 10/13/2022 8:01 EDT Comments on treatment indicated 72-year-old male transferred from [facility], on 10/07 he felt his chest fluttering with discomfort. PT for strengthening, bed mobility training, transfer training, balance training, gait training, stairs training. Recommended Rehab Distance pt will ambulate 100 Full chart review completed Yes Other findings mod evaluation due to multi-system involvement Plan of care PT Gait training, Transfer training, Therapeutic exercise, Functional Activities, Neuromuscular education * Nadiya Hansen: PERFORM Nadiya Hansen: PERFORM, SIGN Nadiya Hansen: SIGN, VERIFY Nadiya Hansen: VERIFY, MODIFY Event Display: Progress Note Hospital Authored Date: Patient: JOSEPH OLMOS Age: 72 years Sex: Male : 1950 Associated Diagnoses: None Author: Nadiya Hansen [facility] Progress Note Interval History Visited during dialysis, no acute complaints at this time. Review of Systems Review of Systems Respiratory: no shortness of breath. Cardiovascular: no chest pain. Gastrointestinal: no abdominal pain, no nausea, no vomiting. Physical Examination Vital Signs Vitals : VITALS 10/15/2022 11:31 EDT Temperature 98.1 DegF Temperature Route Oral Pulse Rate 70 bpm Respiratory Rate 17 br/min Systolic Blood Pressure 112 mm Hg Diastolic Blood Pressure 73 mm Hg Blood pressure sites Arm, right Mean Arterial Pressure 86 mm Hg Pulse Pressure 39 mm Hg Oxygen Saturation 99 % Mode of Delivery (Oxygen) Room air . General Appearance NAD. HEENT Moist mucous membranes. Respiratory Lungs: CTA. Cardiac Rhythms: RRR. Abdomen/GI Abdomen: soft, non-tender. Extremities No edema. Neurologic Alert & oriented x 3 . Results Review 7 Day Results Results Laboratory : LABORATORY 10/15/2022 7:10 EDT WBC 7.1 k/mm3 RBC 3.15 m/mm3 L Hgb 9.9 Gm/dL L Hct 29.9 % L MCV 94.9 femtoliters H MCH 31.4 pg MCHC 33.1 g/dL Platelet Count 204 k/mm3 RDW-SD 54.4 femtoliters H MPV 9.7 femtoliters Nucleated RBC (Automated) 0.0 #/100 WBC'S Abs. NRBC 0.0 k/mm3 Abs. Neut 5.3 k/mm3 Abs. Lymph 0.9 k/mm3 Abs. Obion 0.8 k/mm3 Abs. Eo 0.1 k/mm3 Abs. Baso 0.0 k/mm3 Neut % 74.1 % Lymph % 12.3 % L [place] % 11.2 % H Eos % 1.3 % Baso % 0.3 % Imm Gran 0.8 % Abs. 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 Pt is s/p ICD placement on 10/12/22. 1. ESRD Hyperkalemia Dialyzes TTS at [facility] via L AVF Plan: - Continue HD TTS - Continue Lokelma 10 gm daily, please continue outpatient - Monitor electrolytes - Renal diet 2. HTN / Hypervolemia Chronically, patient takes Carvedilol 3.125 mg on non-HD days (Sun, MWF) and Lasix 80 mg TTS and Lasix 160 mg every Sun, MWF Plan - Continue Carvedilol 3.125 mg on non-HD days (Sun, MWF) and Lasix 80 mg TTS and Lasix 160 mg everySun, MWF - we will Ultrafiltrate on dialysis using Critline monitoring. 3. Nephrogenic Anemia: Hgb 9.9 (/) Tsat 42 and ferritin 1055 (8) Plan - No need for EPO or iron supplementation at this time 4. MBD Calcium 7.8, Phos 5.9 (10/13) PTH 186 (8) Plan: - Continue Tums 600 mg TID w/ meals - Continue Calcitriol 1.25 mcg every TTS Thank you for the courtesy of this consult, RTANE will continue monitoring the patient along with you please do not hesitate to call us with any further questions Nadiya Short PA-C [facility] [address] , [address] Available by [facility] * Vance ROMO, Sterling Chavira: PERFORM Event Display: Progress Note Hospital Authored Date: [id number] Patient seen and examined during HD. 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 [place], on 10/07 he felt his chest fluttering with discomfort. He drove himself to the hospital as he believes EMS takes really long time from his past experience and in the ED was found to be in V. tach with rates in the 190s requiring cardioversion. He was initially started on amiodarone drip but was then transition to oral amiodarone. He was found to have elevated troponin for which he was started on heparin drip. He underwent cardiac cath showed no significant CAD, EF was 15to 20% with severe dilated left ventricle. Developed right perinephric bleed in the setting of heparin drip following which heparin drip was discontinued. His H&H have been stable but downtrending and he did not require any blood transfusion. He was found to have hyperkalemia on 10/11 for which he had a dialysis session for 2 hours. Pt is s/p ICD placement on 10/12/22. Upon visit w/ pt, pt reports he presented for fluttering and discomfort in his chest, and was foundto be in V Tach. Pt reported he was unable to have ICD placement at [facility] so he was transferred to [facility]. Pt reports he has a left AVF, and dialyzes on a TTS schedule. Pt expressed concerns about dialysis today, as he reports he is below his dry weight at this time. Pt reports he tolerates his outpatient HD sessions well, though reports at times he does have muscle cramping. Pt currently denies chest pain, SOB, nausea, vomiting, abdominal pain. Review of Systems As mentioned in HPI Health Status Allergies: Allergies (Active and Proposed Allergies Only) NKA (Severity: Unknown severity, Onset: Unknown) Past Medical History: Cardiomyopathy, nonischemic End stage renal disease on dialysis Neurogenic bladder Obstructive uropathy SOB (shortness of breath) Medications: Acetaminophen (Tylenol 325 mg oral tablet) 650 Milligram 2 tablet By Mouth Every 6 hours as needed Pain , Moderate amiODARONE (amiodarone 200 mg oral tablet) See Instructions 400mg daily by mouth for 7 days (03/03-03/09) then 1 tablet by mouth daily Calcium Acetate (calcium acetate 667 mg oral tablet) 3 tab(s) 2,001 Milligram By Mouth 3 times a day Calcium Carbonate (calcium carbonate 500 mg (200 mg elemental calcium) oral tablet, chewable) 1,000Milligram 2 tablet Chew 3 times a day before meals Carvedilol (carvedilol 3.125 mg oral tablet) 3.125 Milligram 1 tablet By Mouth 2 times a day Cholecalciferol (Vitamin D3 oral tablet) 1 tab(s) 10 Microgram By Mouth Daily Furosemide 160 Milligram By Mouth Daily Multivitamin (Triphrocaps oral capsule) TAKE 1 CAPSULE BY MOUTH ONCE DAILY Social History: Alcohol Details: Use: Never. Details: Use: Never. Home/Environment Details: Living situation: Home/Independent. Lives with: Alone. Substance Abuse Details: Use: Never. Details: Use: Never. Tobacco Details: Use: Never (less than 100 in lifetime). Family History: No family history recorded. Physical Examination Temperature 99.2 (07:36) Systolic Blood Pressure 117 (07:36) Diastolic Blood Pressure 60 (07:36) Pulse 76 (07:36) SpO2 93 (07:36) Respiratory Rate 18 (07:36) Physical Exam: General: Patient appears in no acute distress. HEENT: Moist mucous membranes noted. Cardiovascular: Regular rate and rhythm. Respiratory: Lungs clear to auscultation bilaterally. Abdominal: Soft, nontender. Extremities: No lower extremity edema. All extremities warm to touch. L AVF thrill and bruit noted. Neuro: Alert and oriented to person, place, time. Results Review General results Today's results 10/13/2022 10:07 EDT WBC 9.3 k/mm3 RBC 3.35 m/mm3 L Hgb 10.8 Gm/dL L Hct 32.1 % L MCV 95.8 femtoliters H MCH 32.2 pg MCHC 33.6 g/dL Platelet Count 198 k/mm3 RDW-SD 55.8 femtoliters H MPV 10.0 femtoliters Nucleated RBC (Automated) 0.0 #/100 WBC'S Abs. NRBC 0.0 k/mm3 Abs. Neut 7.5 k/mm3 H Abs. Lymph 0.7 k/mm3 L Abs. Obion 1.0 k/mm3 Abs. Eo 0.1 k/mm3 Abs. Baso 0.0 k/mm3 Neut % 80.4 % H Lymph % 7.4 % L Obion % 10.8 % H Eos % 0.5 % Baso % 0.1 % Imm Gran 0.8 % Abs. Imm Gran 0.1 k/mm3 Sodium 136 mmol/L Sodium 136 mmol/L Potassium 5.4 mmol/L H Potassium 5.5 mmol/L H Chloride 94 mmol/L L Chloride 94 mmol/L L Bicarbonate Level 24 mmol/L Bicarbonate Level 25 mmol/L Anion Gap 18 H Anion Gap 17 Glucose Level 132 mg/dL H Glucose Level 133 mg/dL H BUN 81 mg/dL H BUN 79 mg/dL H Creatinine-Blood 6.8 mg/dL H Creatinine-Blood 6.9 mg/dL H Estimated GFR Creatinine 8 ML/MIN/1.73 M2 Estimated GFR Creatinine 8 ML/MIN/1.73 M2 Calcium 7.8 mg/dL L Calcium 8.0 mg/dL L Phosphorus 5.9 mg/dL H Magnesium 2.2 mg/dL Magnesium 2.3 mg/dL Protein, Total 5.5 Gm/dL L Albumin 3.0 Gm/dL L AG Ratio 1.2 Alkaline Phosphatase 72 units/L AST (SGOT) 20 units/L ALT (SGPT) 16 units/L Bilirubin, Total 0.7 mg/dL Hepatitis B Surface Antigen NEGATIVE Hepatitis C Ab NEGATIVE Anti-HBS Quant 735.47 mIU/mL Impression and Plan Joseph Olmos is a 72-year-old male with past medical history of 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 Pt is s/p ICD placement on 10/12/22. 1. ESRD Dialyzes TTS at [facility] via L AVF Plan: - Continue HD TTS - Monitor electrolytes - Renal diet 2. HTN / Hypervolemia Chronically, patient takes Carvedilol 3.125 mg on non-HD days (Sun, MWF) and Lasix 80 mg TTS and Lasix 160 mg every Sun, MWF Plan - Continue Carvedilol 3.125 mg on non-HD days (Sun, MWF) and Lasix 80 mg TTS and Lasix 160 mg everySun, MWF - we will Ultrafiltrate on dialysis using Critline monitoring. 3. Nephrogenic Anemia: Hgb 10.8 (10/13) Tsat 42 and ferritin 1055 (8) Plan - No need for EPO or iron supplementation at this time 4. MBD Calcium 7.8, Phos 5.9 (10/13) PTH 186 (8) Plan: - Continue Tums 600 mg TID w/ meals - Continue Calcitriol 1.25 mcg every TTS Thank you for the courtesy of this consult, [facility] will continue monitoring the patient along with you please do not hesitate to call us with any further questions Nadiya Short PA-C [facility] [address] [place] [address] , [address] Available by [facility] * Haydee Rodríguez MD: PERFORM Event Display: Consultation Note Authored Date: [id number] Pt seen and agree with above plan; will do 3 hrs HD today to get him on usual scheudle Patient Care team information Care Team Personnel Name: Vance ROMO, Sterling Chavira Position: [facility] Renal MD Member Role: Lifetime Consulting Physician Address: Address: [address] [place] [address], [address] [place] [address]- Name: Noemi Breaux RN Position: [facility] AMB Nurse Member Role: Primary Care Nurse Name: Patrick NAYAK, Eden Rutherford Position: [facility] Associate Professional Member Role: Lifetime Consulting Provider Address: Address: [address] [facility], [address] [facility] [place] [address]- Name: Austen LINARES, Patti Meadows Position: S RN Member Role: Primary Care Nurse Name: Emilia Benites RN Position: S RN Member Role: Primary Care Nurse Name: Jovi LINARES, Rose Segundo Position: S RN Member Role: Primary Care Nurse Name: Nyasia Epperson RN Position: [facility] RN Supv Member Role: Primary Care Nurse Name: John Weiss MD Position: [facility] Renal MD Member Role: Lifetime Consulting Physician Address: Address: [address] [facility] [address] [facility] [place] [address]- Name: Jan Romero MD Position: [facility] Renal MD Member Role: PCP Address: Address: [address] [place] [address] [facility] [place] [address]- Name: Kinjal Farias RN Position: S RN Member Role: Primary Care Nurse Care Team Related Persons Name: COLEMAN OLMOS Address: [facility], [place]
--- OUTSIDE RECORDS SUMMARY | 2023-10-07 08:02 | XMS_ITS | Continuity of Care Document ---
Author Organization [facility] Address [address] [facility] [address] [place] [address]- Care Team Providers Care Hand Flesher Name Role Phone Jan Romero MD Primary Care Physician Encounter [facility] [id number] Date(s): 02/08/22 - 04/09/22 [facility] [address] [facility] [address] [place] [address]- Attending Physician: Bhavesh Benitez MD Admitting Physician: Bhavesh Benitez MD Allergies, Adverse Reactions, Alerts No Known Allergies Immunizations Given and Recorded Vaccine Date Status Refusal Reason SARS-CoV-2 (COVID-19) mRNA-1273 vaccine 07/04/20 R ecorded SARS-CoV-2 (COVID-19) mRNA-1273 vaccine 05/23/20 R ecorded tetanus/diphtheria/pertussis, acel(Tdap) 08/09/17 Recorded tetanus-diphtheria toxoids (Td) 02/02/17 Recorded Medications amiodarone 200 mg oral tablet See Instructions, 400mg daily by mouth for 7 days (03/03-03/09) then 1 tablet by mouth daily, # 36 tablet, Refills 0, Tot. Refills 0, Maintenance, 03/03/21 13:40:00 EST, Instructions Replace RequiredDetails, Route to Pharmacy Electronically, [email or web address]. Start Date: 03/03/21 Status: Ordered aspirin 81 mg oral tablet 1 tablet = 81 mg, By Mouth, Daily, # 90 tablet, 0 Refills, Maintenance, 04/13/19 19:34:00 EST, Tablet Start Date: 04/13/19 Status: Ordered calcium carbonate 500 mg (200 mg elemental calcium) oral tablet, chewable 1,000 mg, 2, tablet, Chew, 3 times a day before meals, Refills 0, Maintenance, 02/26/21 10:52:00 EST, Partial fill upon patient request if the prescription is for a schedule II opioid drug. Start Date: 02/26/21 Status: Ordered docusate sodium 100 mg oral capsule 100 mg, 1, capsule, By Mouth, 2 times a day, Refills 0, Maintenance, 02/26/21 10:52:00 EST, Partialfill upon patient request if the prescription is for a schedule II opioid drug. Start Date: 02/26/21 Status: Ordered Senna 8.6 mg oral tablet 17.2 mg, 2, tablet, By Mouth, Daily, PRN, Refills 0, Maintenance, Constipation, 02/26/21 10:53:00 EST, Tablet, Partial fill upon patient request if the prescription is for a schedule II opioid drug. Start Date: 02/26/21 Status: Ordered Tylenol 325 mg oral tablet 650 mg, 2, tablet, By Mouth, Every 6 hours, PRN, Refills 0, Maintenance, Pain , Moderate, 02/26/21 10:52:00 EST, Partial fill upon patient request if the prescription is for a schedule II opioid drug. Start Date: 02/26/21 Status: Ordered Vitamin E By Mouth, Daily, 0 Refills, Maintenance, 04/13/19 19:33:00 EST Start Date: 04/13/19 Status: Ordered Problem List Condition Confirmation Course Effective Dates Status Health St atus Informant Cardiomyopathy, nonischemic Confirmed Active SOB (shortness of breath) Confirmed Active End stage renal disease on dialysis Confirmed Active Neurogenic bladder Confirmed Active Obstructive uropathy Confirmed Active Social History Social History Type Response Smoking Status Never (less than 100 in lifetime) entered on: 04/13/19 Sex Patient Care team information Care Team Personnel Name: Vance ROMO, Sterling Chavira Position: [facility] Renal MD Member Role: Lifetime Consulting Physician Address: Address: [address] [place] [address] Name: Noemi Breaux RN Position: [facility] AMB Nurse Member Role: Primary Care Nurse Name: Eden Nguyen NP Position: [facility] Associate Professional Member Role: Lifetime Consulting Provider Address: Address: [address] [place] [address] [facility] [address] Name: Austen LINARES, Patti Meadows Position: [facility] RN Member Role: Primary Care Nurse Name: Emilia Benites RN Position: [facility] RN Member Role: Primary Care Nurse Name: Rose Espana RN Position: S RN Member Role: Primary Care Nurse Name: Zeenat LINARES, Nyasia Liriano Position: S RN Supv Member Role: Primary Care Nurse Name: John Weiss MD Position: [facility] Renal MD Member Role: Lifetime Consulting Physician Address: Address: [address] [place] [address] [facility] [address] Name: Jan Romero MD Position: [facility] Renal MD Member Role: PCP Address: Address: [address] [place] [address] [facility] [address] Name: Kinjal Farias RN Position: [facility] RN Member Role: Primary Care Nurse Care Team Related Persons Name: MARY RIVERA Address: home REFUSED
--- OUTSIDE RECORDS SUMMARY | 2023-10-07 08:02 | XMS_ITS | Continuity of Care Document ---
Author Organization [facility] Address [address] [place] [address]- Care Team Providers Care Finger Buff Sewer Name Role Phone Jan Romero MD Primary Care Physician Encounter [facility] [place] Date(s): 07/03/20 - 08/17/20 [facility] [address] [place] [id number]- Encounter Diagnosis SOB (shortness of breath)(Discharge Diagnosis) - 07/18/20 Attending Physician: Little Briscoe MD Admitting Physician: Little Briscoe MD Referring Physician: Jan Romero MD Allergies, Adverse Reactions, Alerts Substance Reaction Severity Status NKA Active Medications aspirin 81 mg oral tablet 1 tablet = 81 mg, By Mouth, Daily, # 90 tablet, 0 Refills, Maintenance, 04/13/19 19:34:00 EST, Tablet Start Date: 04/13/19 Status: Ordered Vitamin E By Mouth, Daily, 0 Refills, Maintenance, 04/13/19 19:33:00 EST Start Date: 04/13/19 Status: Ordered Problem List Condition Effective Dates Status Health Status Inform ant SOB (shortness of breath)(Confirmed) Active Diagnosis Diagnosis Type Effective Dates Health Status Cl inical Service Informant SOB (shortness of breath) Discharge Diagnosis 07/18/20 Social History Social History Type Response Smoking Status Never (less than 100 in lifetime) entered on: 04/13/19 Sex
--- OUTSIDE RECORDS SUMMARY | 2023-10-07 08:02 | XMS_ITS | Continuity of Care Document ---
Author Organization [facility] Address [address] [facility] [address] [place] [address]- Care Team Providers Care Pie Crust Mixer Name Role Phone Jan Romero MD Primary Care Physician Encounter [facility] [place] Date(s): 01/28/22 - 03/13/[address] [facility] [address] [facility] [address] [place] [address]- Attending Physician: Robb Denis MD Admitting Physician: Robb Denis MD Allergies, Adverse Reactions, Alerts No Known [...] Instructions Replace RequiredDetails, Route to Pharmacy Electronically, Alena... Start Date: 03/03/21 Status: Ordered aspirin 81 [...] Personnel Name: Vance ROMO, Sterling Chavira Position: [facility] Renal MD Member Role: Lifetime Consulting Physician Address: Address: [address] [place] [address] Name: Noemi Breaux RN Position: [facility] AMB Nurse Member Role: Primary Care Nurse Name: Eden Nguyen NP Position: [facility] Associate Professional Member Role: Lifetime Consulting Provider Address: Address: [address] [place] [address] [facility] [address] Name: Austen LINARES, Patti Meadows Position: [facility] RN Member Role: Primary Care Nurse Name: Emilia Benites RN Position: [facility] RN Member Role: Primary Care Nurse Name: Jovi LINARES, Rose Segundo Position: S RN Member Role: Primary Care Nurse Name: Zeenat LINARES, Nyasia Liriano Position: S RN Supv Member Role: Primary Care Nurse Name: John Weiss MD Position: [facility] Renal MD Member Role: Lifetime Consulting Physician Address: Address: [address] [place] [address] [facility] [address] Name: Jan Romero MD Position: [facility] Renal MD Member Role: PCP Address: Address: [address] [place] [address] [facility] [address] Name: Kinjal Farias RN Position: S RN Member Role: Primary Care Nurse Care Team Related Persons Name: MARY RIVERA Address: home REFUSED
--- OUTSIDE RECORDS SUMMARY | 2023-10-07 08:02 | XMS_ITS | Continuity of Care Document ---
Author Organization [facility] Address [address] [place] [address]- Care Team Providers Care Pressure Tank Operator Name Role Phone Not on Staff, PCP Primary Care Physician Unavail able Encounter [facility] Date(s): 04/13/19 - 04/13/[address] [address]- [facility] Discharge Disposition: A-D/C Home Attending Physician: Lilly Gallo MD Admitting Physician: Lilly Gallo MD Referring Physician: Not on Staff, Referring MD Allergies, Adverse Reactions, Alerts Substance Reaction Severity Status NKA Active Medications aspirin 81 mg oral tablet 1 tablet = 81 mg, By Mouth, Daily, # 90 tablet, 0 Refills, Maintenance, 04/13/19 19:34:00 EST, Tablet Start Date: 04/13/19 Status: Ordered Vitamin E By Mouth, Daily, 0 Refills, Maintenance, 04/13/19 19:33:00 EST Start Date: 04/13/19 Status: Ordered Vital Signs Most recent to oldest [Reference Range]: 1 2 Height 183 cm (04/13/19 10:00 PM) 183 cm (04/13/19 7:29 PM) Weight 86.7 kg (04/13/19 10:00 PM) 86.7 kg (04/13/19 7:29 PM) Oxygen Saturation [94-100 %] 100 % (04/13/19 7:29 PM) Pulse Rate [55-90 bpm] 72 bpm (04/13/19 10:00 PM) 81 bpm (04/13/19 7:29 PM) Body Mass Index [18.5-24.99] 25.89 *H* (04/13/19 10:00 PM) Blood Pressure [90-138/55-84 mm Hg] 136/ 84mm Hg (04/13/19 10:00 PM) 133/70mm Hg (04/13/19 7:29 PM) Respiratory Rate [16-30 br/min] 18 br/mi n (04/13/19 10:00 PM) 18 br/min (04/13/19 7:29 PM) Temperature [96.8-100.4 DegF] 98.6 DegF (04/13/19 7:29 PM) Mode of Delivery (Oxygen) Room air (04/13/19 7:29 PM) Blood pressure sites Arm, left (04/13/19 10:00 PM) Arm, right (04/13/19 7:29 PM) Temperature Route Oral (04/13/19 7:29 PM) Dry Weight 86.7 kg (04/13/19 10:00 PM) 86.7 kg (04/13/19 7:29 PM) Social History Social History Type Response Smoking Status Never (less than 100 in lifetime) entered on: 04/13/19 Sex
--- OUTSIDE RECORDS SUMMARY | 2023-10-07 08:02 | XMS_ITS | Continuity of Care Document ---
Author Organization [facility] Address [address] [place] [address]- Care Team Providers Care Brass Buffer Name Role Phone Not on Staff, PCP Primary Care Physician Unavail able Encounter [facility] Date(s): 04/25/19 - 04/25/[address] [address]- [facility] Discharge Disposition: A-D/C Home Attending Physician: Lilly [...] 19:33:00 EST Start Date: 04/13/19 Status: Ordered Social History Social History Type Response Smoking Status Never (less than 100 in lifetime) entered on: 04/13/19 Sex
--- OUTSIDE RECORDS SUMMARY | 2023-10-07 08:02 | XMS_ITS | Continuity of Care Document ---
Author Organization [facility] ter Address [address] [place] [address]- Care Team Providers Care Deicer Repairer Pneumatic Name Role Phone Leon ROMO, Geremias Primary Care Physician Encounter [facility] Date(s): 02/21/21 - 03/03/[address] [id number] Discharge Disposition: A-D/C Home Attending Physician: Jose Luis ROMO, Marty Admitting Physician: John Paul Riley MD Referring Physician: Not on Staff, Referring MD Allergies, Adverse Reactions, Alerts Substance Reaction Severity Status NKA Active Immunizations Given and Recorded Vaccine Date Status [...] Electronically, Alena... Start Date: 03/03/21 Status: Ordered calcium carbonate 500 mg (200 [...] opioid drug. Start Date: 02/26/21 Status: Ordered sodium polystyrene sulfonate oral and rectal powder = 30 Gm, By Mouth, Daily, for 7 days, # 7 each, 0 Refills, Acute 03/10/21 13:40:00 EST, 03/03/21 13:40:00 EST, Powder, [facility], Partial fill upon patient request if the prescription is for a schedule II opioid drug., 170, cm, 03/03/21 10... Start Date: 03/03/21 Stop Date: 03/10/21 Status: Ordered Tylenol 325 mg oral tablet 650 mg, 2, tablet, By Mouth, Every 6 hours, PRN, Refills 0, Maintenance, Pain , Moderate, 02/26/21 10:52:00 EST, Partial fill upon patient request if the prescription is for a schedule II opioid drug. Start Date: 02/26/21 Status: Ordered Problem List Condition Effective Dates Status Health Status Inform ant Cardiomyopathy, nonischemic(Confirmed) Active End stage renal disease on dialysis(Confirmed) Active Neurogenic bladder(Confirmed) Active Obstructive uropathy(Confirmed) Active Results Radiology Reports * Exam Date Time Procedure Performing Provider Status 02/20/21 7:40 PM Tibia/Fibula 2 Views Left Abbi Huang; [facility] (Verified) Notes: (Tibia/Fibula 2 Views Left) Reason For Exam: with Pain;Trauma RESULT: Tibia/Fibula 2 Views Left Tibia/Fibula 2 Views Left Reason: Trauma; with Pain; Clinical Question(s): Fracture COMPARISON: None. FINDINGS: Mild tricompartmental osteoarthritis within the knee. No evidence of fracture. IMPRESSION: No evidence of fracture WSN: [id number] Ordering Physician: Lavern Clinton Dictated By: Robb Zendejas MD Dictated Date/Time: 02/20/21 8:00 pm Reviewed By: Robb Zendejas MD Signed By: Robb Zendejas MD Signed Date/Time: 02/20/21 8:00 pm Transcribed By: ALYSSA Transcribed Date/Time: 02/20/21 7:59 pm * Exam Date Time Procedure Performing Provider Status 02/20/21 7:40 PM Tibia/Fibula 2 Views Right Abbi Huang; [facility] (Verified) Notes: (Tibia/Fibula 2 Views Right) Reason For Exam: with Pain;Trauma RESULT: Tibia/Fibula 2 Views Right Tibia/Fibula 2 Views Right Reason: Trauma; with Pain; Clinical Question(s): Fracture COMPARISON: None. FINDINGS: Possible nondisplaced fracture in the posterior aspect of the lateral femoral condyle. Possible nondisplaced mid fibular shaft fracture. Mild tricompartmental osteoarthritis within the knee IMPRESSION: Possible nondisplaced fractures in the posterior aspect of the lateral femoral condyle and mid fibular shaft. Correlate for focal tenderness. A Ray message has been communicated via the bitHound system on 02/20/2021 7:58 PM, Message ID [id number]. WSN: [id number] Ordering Physician: Lavern Clinton Dictated By: Robb Zendejas MD Dictated Date/Time: 02/20/21 7:59 pm Reviewed By: Robb Zendejas MD Signed By: Robb Zendejas MD Signed Date/Time: 02/20/21 7:59 pm Transcribed By: ALYSSA Transcribed Date/Time: 02/20/21 7:54 pm * Exam Date Time Procedure Performing Provider Status 02/20/21 7:40 PM Humerus Min 2 Views Right Abbi Huang; [facility] (Verified) Notes: (Humerus Min 2 Views Right) Reason For Exam: with Pain;Trauma RESULT: Humerus Min 2 Views Right Humerus Min 2 Views Right, views Reason: Trauma; with Pain; Clinical Question(s): Fracture COMPARISON: None. FINDINGS: No acute fractures or bone lesions. Deformity mid humeral shaft either congenital or remote trauma.Mild arthritic change at the elbow and shoulder joints. Elevated humeral head compatible with full-thickness rotator cuff tear, likely chronic. Normal soft tissues. IMPRESSION: No acute abnormality WSN: [id number] Ordering Physician: Lavern Clinton Dictated By: Robb Wheeler MD Dictated Date/Time: 02/20/21 7:49 pm Reviewed By: Robb Wheeler MD Signed By: Robb Wheeler MD Signed Date/Time: 02/20/21 7:49 pm Transcribed By: ALYSSA Transcribed Date/Time: 02/20/21 7:46 pm * Exam Date Time Procedure Performing Provider Status 02/20/21 7:09 PM Pelvis 1 or 2 Views Jayshree Ruiz; [facility] (Verified) Notes: (Pelvis 1 or 2 Views) Reason For Exam: with Pain;Trauma RESULT: Pelvis 1 or 2 Views Pelvis 1 or 2 Views Reason: Trauma; with Pain; Clinical Question(s): Fracture COMPARISON: None. FINDINGS: There is no fracture or dislocation. Normal hips and sacroiliac joints. Normal soft tissues. IMPRESSION: No acute abnormality. WSN: [id number] Ordering Physician: Lavern Clinton Dictated By: Robb Wheeler MD Dictated Date/Time: 02/20/21 7:16 pm Reviewed By: Robb Wheeler MD Signed By: Robb Wheeler MD Signed Date/Time: 02/20/21 7:16 pm Transcribed By: ALYSSA Transcribed Date/Time: 02/20/21 7:14 pm * Exam Date Time Procedure Performing Provider Status 02/20/21 7:09 PM Chest Portable Jayshree Ruiz; [facility] ( Verified) Notes: (Chest Portable) Reason For Exam: Pain;Other: RESULT: Chest Portable Chest Portable Reason: Other:; Pain; Clinical Question(s): Other:; Fracture, pneumothorax, pulmonary contusion COMPARISON: None. FINDINGS: LINES AND TUBES: None. LUNGS AND PLEURA: Clear lungs. Normal pulmonary vascularity. No pleural effusion. No pneumothorax. HEART, MEDIASTINUM AND DEBI: Enlarged but may be magnified by portable AP technique. Left axillary stent BONES AND SOFT TISSUES: No acute abnormality. IMPRESSION: No acute abnormality. WSN: [id number] Ordering Physician: Lavern Clinton Dictated By: Robb Wheeler MD Dictated Date/Time: 02/20/21 7:14 pm Reviewed By: Robb Wheeler MD Signed By: Robb Wheeler MD Signed Date/Time: 02/20/21 7:14 pm Transcribed By: ALYSSA Transcribed Date/Time: 02/20/21 7:12 pm Vital Signs Most recent to oldest [Reference Range]: 1 2 3 Height 170 cm (03/03/21 10:43 AM) 170 cm (03/03/21 6:13 AM) 170 cm (03/03/21 2:04 AM) Weight 73.5 kg (03/03/21 4:58 AM) 75.3 kg (03/02/21 2:00 AM) 75.0 kg (03/01/21 2:28 AM) Oxygen Saturation [94-100 %] 100 % (03/03/21 10:43 AM) 97 % (03/03/21 6:13 AM) 99 % (03/03/21 2:04 AM) Pulse Rate [55-90 bpm] 57 bpm (03/03/21 10:43 AM) 61 bpm (03/03/21 6:13 AM) 57 bpm (03/03/21 2:04 AM) Body Mass Index [18.5-24.99] 25.95 *H* (03/01/21 2:28 AM) 26.12 *H* (02/28/21 2:54 AM) 27.09 *H* (02/27/21 3:06 AM) Blood Pressure [90-138/55-84 mm Hg] 116/57mm Hg (03/03/21 10:43 AM) 153/67mm Hg *H* (03/03/21 6:13 AM) 127/70mm Hg (03/03/21 2:04 AM) Respiratory Rate [16-30 br/min] 18 br/min (03/03/21 10:43 AM) 18 br/min (03/03/21 2:04 AM) 19 br/min (03/02/21 8:10 PM) Temperature [96.8-100.4 DegF] 97.2 DegF (03/03/21 10:43 AM) 97.7 DegF (03/03/21 6:13 AM) 97.8 DegF (03/03/21 2:04 AM) Liters per Minute 3 L/min (02/21/21 1:00 AM) 3 L/min (02/21/21 12:25 AM) 5 L/min (02/21/21 12:02 AM) Mode of Delivery (Oxygen) Room air (03/03/21 10:43 AM) Room air (03/03/21 6:13 AM) Room air (03/03/21 2:04 AM) Blood pressure sites Arm, right (03/03/21 10:43 AM) Arm, right (03/03/21 6:13 AM) Arm, right (03/03/21 2:04 AM) Temperature Route Oral (03/03/21 10:43 AM) Oral (03/03/21 6:13 AM) Oral (03/03/21 2:04 AM) Dry Weight 80.3 kg (02/21/21 1:42 AM) Weight Obtained Via Bed scale (03/03/21 4:58 AM) Bed scale (03/02/21 2:00 AM) Bed scale (03/01/21 2:28 AM) Dry Weight Obtained Via Bed scale (02/21/21 1:42 AM)
--- OUTSIDE RECORDS SUMMARY | 2023-10-07 08:02 | XMS_ITS | Continuity of Care Document ---
Author Organization [facility] Address [address] [place] [address]- Care Team Providers Care Product Promoter Retail Pet Name Role Phone Jan Romero MD Primary Care Physician Encounter [facility] [place] 04/22/22 - 05/22/22 [facility] [address] [place] [address]- Attending Physician: Homero Qureshi Admitting Physician: Homero Qureshi Referring Physician: Homero Qureshi Allergies, Adverse Reactions, Alerts No Known Allergies [...] Personnel Name: Vance ROMO, Sterling Chavira Position: [facility] Renal MD Member Role: Lifetime Consulting Physician Address: Address: [address] [place] [address] Name: Noemi Breaux RN Position: [facility] AMB Nurse Member Role: Primary Care Nurse Name: Eden Nguyen NP Position: [facility] Associate Professional Member Role: Lifetime Consulting Provider Address: Address: [address] [place] [address] [facility] [address] Name: Patti Boyce RN Position: [facility] RN Member Role: Primary Care Nurse Name: Emilia Benites RN Position: [facility] ED RN W/OE and Tasks Member Role: Primary Care Nurse Name: Jovi LINARES, Rose Segundo Position: S RN Member Role: Primary Care Nurse Name: Zeenat LINARES, Nyasia Liriano Position: S RN Supv Member Role: Primary Care Nurse Name: John Weiss MD Position: [facility] Renal MD Member Role: Lifetime Consulting Physician Address: Address: [address] [place] [address] [facility] [address] Name: Jan Romero MD Position: [facility] Renal MD Member Role: PCP Address: Address: [address] [place] [address] [facility] [address] Name: Kinjal Farias RN Position: S RN Member Role: Primary Care Nurse Care Team Related Persons Name: MARY RIVERA Address: [place] REFUSED
--- OUTSIDE RECORDS SUMMARY | 2023-10-07 08:02 | XMS_ITS | Continuity of Care Document ---
Author Organization [facility] Address [address] [place] [address]- Care Team Providers Care Cloth Bin Packer Name Role Phone Jan Romero MD Primary Care Physician Encounter [facility] [place] Date(s): 07/18/20 - 08/17/20 [facility] [address] [place] [address] [place] [id number] Attending Physician: Homero Qureshi Admitting Physician: Admtr, Homero Referring Physician: Admtr, ArBrandan Allergies, Adverse Reactions, Alerts Substance Reaction Severity [...] Inform ant SOB (shortness of breath)(Confirmed) Active Social History Social History Type Response Smoking Status Never (less than 100 in lifetime) entered on: 04/13/19 Sex
--- OUTSIDE RECORDS SUMMARY | 2023-10-07 08:02 | XMS_ITS | Continuity of Care Document ---
Author Organization [facility] Address [address] [place] [address]- Care Team Providers Care Care Connector Name Role Phone Jan Romero MD Primary Care Physician Encounter [facility] [place] Date(s): 07/01/20 - 08/28/20 [facility] [address] [place] [id number] Attending Physician: Little Briscoe MD Admitting Physician: Radha López MD, Little Henry Referring Physician: Jan Romero MD Allergies, Adverse [...]
== END 2023-10-05 13:59 | disposition home or self-care (01) ==
LOC: HO.HUSH 13:34
PROVIDERS: PCP Internal Medicine Nephrology; Visit Provider Urology
DX: N31.9 Neuromuscular dysfunction of bladder, unspecified (principal)
CPT/HCPCS: 51705; 99213

== ENCOUNTER → 2023-10-05 13:34 | Outpatient (BNVA) | payer MEDICARE, SELFPAY | PROVIDERS: PCP Internal Medicine Nephrology; Visit Provider Urology | DX: N31.9 Neuromuscular dysfunction of bladder, unspecified (principal) | CPT/HCPCS: 51705; 99212 ==

== ENCOUNTER → 2023-11-09 10:33 | Outpatient (BNVA) | payer MEDICARE, SELFPAY | PROVIDERS: PCP Internal Medicine Nephrology; Visit Provider Urology | DX: N31.9 Neuromuscular dysfunction of bladder, unspecified (principal) | CPT/HCPCS: 51705 ==

== ENCOUNTER → 2023-12-14 10:42 | Outpatient (BNVA) | payer MEDICARE, SELFPAY | PROVIDERS: PCP Internal Medicine Nephrology; Visit Provider Urology | DX: N31.9 Neuromuscular dysfunction of bladder, unspecified (principal) | CPT/HCPCS: 51705 ==

== ENCOUNTER → 2024-01-20 10:49 | Outpatient (BNVA) | payer MEDICARE, SELFPAY | PROVIDERS: PCP Internal Medicine Nephrology; Visit Provider Urology | DX: N31.9 Neuromuscular dysfunction of bladder, unspecified (principal); Z46.6 Encounter for fitting and adjustment of urinary device; Z93.50 Unspecified cystostomy status | CPT/HCPCS: 51705 ==

== ENCOUNTER → 2024-02-28 13:34 | Outpatient (BNVA) | payer MEDICARE, SELFPAY | PROVIDERS: PCP Internal Medicine Nephrology; Visit Provider Urology | DX: N31.9 Neuromuscular dysfunction of bladder, unspecified (principal); Z46.6 Encounter for fitting and adjustment of urinary device; Z93.50 Unspecified cystostomy status | CPT/HCPCS: 51705 ==

== ENCOUNTER 2024-04-20 10:28 | Outpatient (REF) | payer MEDICARE, SELFPAY | END 2024-04-20 10:29 | disposition home or self-care (01) | LOC: HO.LAB 10:28 | PROVIDERS: PCP Internal Medicine Nephrology; Visit Provider Urology | DX: N31.9 Neuromuscular dysfunction of bladder, unspecified (principal) | CPT/HCPCS: 51705; 87086 ==

== ENCOUNTER → 2024-05-16 10:22 | Outpatient (BNVA) | payer MEDICARE, SELFPAY | PROVIDERS: PCP Internal Medicine Nephrology; Visit Provider Urology | DX: N31.9 Neuromuscular dysfunction of bladder, unspecified (principal); Z46.6 Encounter for fitting and adjustment of urinary device; Z93.50 Unspecified cystostomy status | CPT/HCPCS: 51705 ==

== ENCOUNTER 2024-06-13 10:24 | Outpatient (AMB) | payer MEDICARE, SELFPAY ==
--- NOTE | 2024-06-13 10:44 | A.OFFVIS_ITS ---
Intake Visit Reasons: 4w SPT change Allergies No Known Allergies Allergy (Verified 10/05/23 13:23) [facility] Medical History Hydrocele Neurogenic bladder Office Procedures Bladder/Catheter Procedure Details: 20 fr mila urbina cath 7.5 ml balloon exchanged with new 20 fr mila urbina cath 7.5 ml balloon w blue plug, pt tolerated exchange well. 4 wks next change per patient request. [id number] of bladder tube Procedure code (CPT) selection complete Assessment & Plan Assessment & Plan (1) Neurogenic urinary bladder disorder: Code(s): N31.9 - Neuromuscular dysfunction of bladder, unspecified Category: Medical Plan continue catheter exchange Orders: Orders AMB Bladder/Catheter Procedure Today N31.9 - Neuromuscular dysfunction of bladder, unspecified Coding Level of Care Code Est Pt Level 3 (25650) Diagnoses Neurogenic urinary bladder disorder N31.9 CPT Codes Bladder/Catheter Procedure - CPT: 15961-Qjfdhf of bladder tube ([id number])
--- OUTSIDE RECORDS SUMMARY | 2024-06-13 12:36 | XMS_ITS | Clinical Summary ---
Author Organization [facility] Address [address] [place] [address] Care Team Providers Care Director Global Name Role Phone Jan Romero MD Primary Care Provider [phone] Allergies No known active allergies Medications metoprolol (LOPRESSOR) 25 MG tablet 01/26/2017 Active VITAMIN D2 50,000 unit capsule 6 07/07/2018 Active lisinopril (PRINIVIL,ZESTRIL) 2.5 MG tablet 2 07/06/2018 Activ e Immunizations Name Administration Dates Next Due Boostrix (Tdap) Prefilled Syringe 08/09/2017 Tenivac (Td) Prefilled Syringe 02/02/2017 Social History Tobacco Use Types Packs/Day Years Used Date Smoking Tobacco: Never Smokeless Tobacco: Never Sex and Gender Information Value Date Recorded Sex Assigned at Not on file Legal Sex Male 10:28 AM EDT Gender Identity Not on file Sexual Orientation Not on file Last Filed Vital Signs Vital Sign Reading Time Taken Comments Blood Pressure 126/66 08/18/2018 2:17 PM EDT Pulse 74 08/18/2018 2:17 PM EDT Temperature 36.8 ??C (98.2 ??F) 08/18/2018 2:17 PM ED T Respiratory Rate 12 08/18/2018 2:17 PM EDT Oxygen Saturation 98% 08/18/2018 2:17 PM EDT Inhaled Oxygen Concentration - - Weight 77.1 kg (170 lb) 03/03/2017 11:50 AM EST Height 180.3 cm (5' 11 ) 03/03/2017 11:50 AM EST Body Mass Index 23.71 03/03/2017 11:50 AM EST Plan of Treatment Health Maintenance Due Date Last Done Comments Colorectal Cancer: COLONOSCO PY Screening every 10 yrs (or Modifier) 1950 Depression: Screening Annual ly using PHQ-2/9 in Adults 18 yrs or above (or HM Modifier)([facility]) 1969 Hepatitis C Virus Infection in Adolescents and Adults: Screening (or Modifier) ([facility]) 1968 [facility] Screening Reminder: [place] for all adults ([facility]) 1969 Tobacco Smoking Cessation: i n Adults excluding Women: Behavioral and Pharmacotherapy Interventions ([facility]) 1969 Lipid Screening: Every 5 yrs for Men aged 35+ (or HM Modifier) ([facility]) 1987 Colorectal Cancer Screening 45 -75 Yrs (or HM Modifier) 02/09/1996 Colorectal Cancer: FLEXIBLE SIGMOIDOSCOPY Screening every 5 yrs 02/09/1996 Colorectal Cancer: Fecal Imm unochemical Test (FIT) Annually [facility] 02/09/1996 Colorectal Cancer: High-sens itivity gFOBT Screening Annually [facility] 02/09/1996 Colorectal Cancer: Stool Col oguard Screening every 3 yrs 02/09/1996 Colorectal Cancer:CT Colonog mary Screening every 5 yrs 02/09/1996 Zoster/Shingles Vaccine Seri es Screening: Adults aged 18+ yrs (or HM Modifiers)([facility]) (1 of 2) 2001 Pneumococcal Vaccination Scr eening: Patients 65+ yrs of age ([facility]) (1 of 1 - PCV) 02/09/2016 Flu Vaccination: Ages 65+: Y early High Dose Recommended (or Modifier)([facility]) 11/11/2023 COVID-19 Vaccine Screening: Initial Series and Booster Status ([facility]) (1 - 2023-25 season) 2023 RSV Vaccines (1 - 1-dose 75+ series) 2026 DTaP/Tdap/Td Vaccines ([facility]) (2 - Td or Tdap) 08/10/2027 08/09/2017, 02/02/2017 Medical Devices Not on file Insurance MEDICARE [facility] Care Teams Director Global Relationship Specialty Start Date End Date Jan Romero MD PCP - General Nephrology 02/02/17
--- OUTSIDE RECORDS SUMMARY | 2024-06-13 12:36 | XMS_ITS | Clinical Summary ---
Author Organization [address] [place] [address] [place] [phone] Phone Care Team Providers Care Office Mover Name Role Phone Geremias Quintero MD Primary Care Provider [phone] Allergies Active Allergy Reactions Criticality Noted Date Comments Penicillins 08/27/2022 Medications metoprolol succinate (TOPROL-XL) 25 mg 24 hr tablet Take 1 Tablet by mouth daily. Active aspirin/caffeine (ANACIN ORAL) Take 0.5 Tablets by mouth daily. Active ANTACID, CALCIUM CARBONATE, ORAL Take by mouth. Take with meals Active CHOLECALCIFEROL, VITAMIN D3, ORAL Take by mouth daily. Active multivit-min/iron /folic acid/K (ADULTS MULTIVITAMIN ORAL) Take by mouth. Taken after dialysis Active Active Problems Problem Noted Date Diagnosed Date Paroxysmal atrial fibrillation 2024 Overview (02/28/2024): Last Assessment & Plan: Transient atrial arrhythmia status post ICD shock due to inappropriate shock from tachycardia. Will continue to monitor and decide if he needs an antiarrhythmic or ablation. He has a strong indication for anticoagulation but generally has refused to I will rediscuss this at his next visit and discuss watchman which may be take an anticoagulant. The best treatment for him. NSTEMI (non-ST elevated myocardial infarction) 1 Overview (02/28/2024): Cardiac catheterization without coronary disease 2023 Last Assessment & Plan: Patient had an NSTEMI likely due to demand ischemia from rapid ventricular response to atrial arrhythmias. Is imperative he be on a beta-jaimie and was starting at 25 mg and will titrate upwards over the next several weeks. Continue low-dose aspirin. 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 He is appropriately biventricular pacing with a right sided biventricular device. I optimized the waveform for heart failure management. I talked him at length about his arrhythmias and heart failure. We are limited by his dialysis and relative hypotension as well as his lack of insight into the disease and need for medications. We decided to not proceed with amiodarone partly because his brother had severe pulmonary toxicity and is very nervous about it but also to see if we can get some metoprolol on board without any hypotension which should provide both rate control and heart failure management. He would not be a candidate for Entresto or ALETHA inhibitor based on blood pressure and dialysis concerns. I will try and have him back in a few weeks to be sure his blood pressure is tolerating the medicine and see if we can increase from 25 to 50 mg of metoprolol. He would be a candidate for an AV node ablation if he continues to have atrial arrhythmias and I would not rule out an A-fib ablation if he had classic atrial fibrillation or atrial flutter. He has not wanted to be on anticoagulation we will need to follow the A-fib burden and have a low threshold to start him on an anticoagulant. He would be a potential candidate for a Watchman procedure should he have continued atrial fibrillation given his risk for bleeding of be significant. Elevated troponin 01/20/2023 Nonischemic dilated cardiomyopathy 01/20/2023 VT (ventricular tachycardia) 03/28/2021 Overview (02/28/2024): Last Assessment & Plan: No further VT. His shock was likely due to an atrial arrhythmia with rapid ventricular conduction. We will hold off on amiodarone unless he has documented recurrent arrhythmias. 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 Does have a left bundle branch block. In the past he was intolerant and would not take a neurohormonal medications. This time though he was recently placed on carvedilol. 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 He does have a left bundle branch block his QRS width is 168 ms. I spoke to him about the possibility of a BiV ICD pacer. I discussed indication of the procedure and the procedure itself. I did discuss some, possible risks of the procedure including which I told him to be unlikely infection hematoma in the pocket leading to becoming displaced and to be replaced ventricular perforation. I have given him material to read about this and he is agreeable. I also did tell him that the ICD portion will be if he were to develop a life-threatening arrhythmia which she is actually done in the past. In the past he was did not want to proceed with the ICD but is now agreeable. He wants to wait until the end of September beginning of October. I told him I would speak with Dr. Vee. I told him he can do the medium in the hospital at the time of the procedure or before that he would prefer to meet him in the hospital. Congestive heart failure (CHF) 10/11/2018 Overview (02/28/2024): Last Assessment & Plan: The patient has persistent nonischemic cardiomyopathy status post [place] biventricular ICD, lost to follow-up. He is not on any GDMT likely related to at least relative hypotension during dialysis. Will update his echocardiogram to follow his LVEF. If is still depressed, will discuss with Dr. Romero possible options to initiate GDMT. He was able to make clear his scheduling needs and we will do her absolute best to accommodate them in the office. He appreciates this effort on our part. End stage renal disease 10/11/2018 Overview (02/28/2024): On hemodialysis.. Has suprapubic catheter Liver mass 10/11/2018 Hemodialysis patient 10/11/2018 Encounters Date Type Department Care Team Description 05/24/2024 8:30 AM EST Office Visit Internal Medicine - [facility] [address] [place] [phone] Geremias Quintero MD Chronic systolic congestive heart failure (CMS/HCC) (Primary Dx); Nonischemic dilated cardiomyopathy (CMS/HCC); Paroxysmal atrial fibrillation (CMS/HCC); ESRD (end stage renal disease) (CMS/HCC); Liver cyst 05/02/2024 Telephone [facility] - [facility] [address] [place] [address] Geremias Quintero MD Medical Records 04/07/2024 9:30 AM EST Ancillary Procedure [facility] [address] [place] [phone] Systolic congestive heart failure, unspecified HF chronicity (CMS/HCC); VT (ventricular tachycardia) (CMS/HCC) 03/23/2024 Telephone Internal Medicine - [facility] [address] [place] [phone] Geremias Quintero MD from Last 3 Months Surgical History Surgery Date Site/Laterality Comments OTHER SURGICAL HISTORY PROCEDURE: MN PRQ TRLUML CORONARY ANGIO/ATHEREC ADDL ART/BRNCH OTHER SURGICAL HISTORY PROCEDURE: MN HEMODIAL VIA FUNCTIONG AV FISTULA Medical History Medical History Date Comments CRF (chronic renal failure), stage 5 (CMS/HCC) DX:CRF (chronic renal failur e), stage 5 (HCC) Suprapubic catheter (CMS/HCC) DX :Suprapubic catheter (HCC) Obstructive uropathy DX:Obstruct deja uropathy Dizziness DX:Dizziness Dyspnea DX:Dyspnea Family History Medical History Relation Name Comments Heart failure Brother No Known Problems Father No Known Problems Mother Relation Name Status Comments Brother Father Mother Social History Tobacco Use Types Packs/Day Years Used Date Smoking Tobacco: Never Smokeless Tobacco: Never Alcohol Use Standard Drinks/Week Comments No 0 (1 standard drink = 0.6 oz pur e alcohol) Sex and Gender Information Value Date Recorded Sex Assigned at Not on file Legal Sex Male 6:05 PM EST Gender Identity Not on file Sexual Orientation Not on file Obstetrics History Last Filed Vital Signs Vital Sign Reading Time Taken Comments Blood Pressure 112/60 05/24/2024 9:19 AM EST Pulse 99 05/24/2024 9:19 AM EST Temperature 36.3 ??C (97.3 ??F) 05/24/2024 9:19 AM ES T Respiratory Rate - - Oxygen Saturation 90% 05/24/2024 9:19 AM EST Inhaled Oxygen Concentration - - Weight 74.8 kg (165 lb) 05/24/2024 9:19 AM EST Height 177.8 cm (5' 10 ) 04/07/2024 1:34 PM EST Body Mass Index 23.68 04/07/2024 1:34 PM EST Plan of Treatment Upcoming Encounters Date Type Department Care Team (Late st Contact Info) Description 06/20/2024 10:40 AM EDT Consult Gastroenterology - [facility] 175 [facility] [address] [phone] Lisandro Macias PA [address] [address] 06/22/2024 10:10 AM EDT Office Visit [facility] - [facility] [address] [facility] 154 [place] [phone] Wedny Du PA 300 [facility] 154 [place] [address] 07/11/2024 10:30 AM EDT Ancillary Procedure [facility] - [facility] [address] [facility] 154 [place] [address] 11/23/2024 11:00 AM EDT Office Visit Internal Medicine - [facility] [address] [phone] Geremias Quintero MD 175 [facility] 200 [place] [address] Health Maintenance Due Date Last Done Comments Pneumococcal Vaccine: 50+ Years (1 of 2 - PCV) 1970 Zoster Vaccines (1 of 2) 2001 RSV Immunization Patients 60+ Years Old (1 - Risk 60-74 years 1-dose series) 2011 COVID-19 Vaccine (3 - Moderna risk series) 08/01/2020 07/04/2020, 05/23/2020 Depression Screening 03/14/2022 Falls Risk Assessment 03/14/2022 Hepatitis C Screening 03/14/2022 Medicare Annual Wellness Visit 03/14/2022 Social Influencers of Health Screening 03/14/2022 Hypertension/CHF/CAD Annual BMP Blood Test 03/22/2022 08/03/2019 Influenza Vaccine (#1) 2023 0, 01/05/2019, 06/09/2018, Additional history exists Colorectal Cancer Screening: Colonoscopy 11/12/2025 11/13/2015 DTaP,Tdap,and Td Vaccines (3 - Td or Tdap) 08/10/2027 08/09/2017, 02/02/2017 Cholesterol Screening (Lipid Panel) 04/20/2029 04/20/2024 HIB Vaccines Aged Out No longer eligi ble based on patient's age to complete this topic HPV Vaccines Aged Out No longer eligi ble based on patient's age to complete this topic Hepatitis A Vaccines Aged Out No long er eligible based on patient's age to complete this topic Hepatitis B Vaccines Aged Out No long er eligible based on patient's age to complete this topic IPV Vaccines Aged Out No longer eligi ble based on patient's age to complete this topic MMR Vaccines Aged Out No longer eligi ble based on patient's age to complete this topic Meningococcal ACWY Vaccine Aged Out N o longer eligible based on patient's age to complete this topic Meningococcal B Vacine Aged Out No lo nger eligible based on patient's age to complete this topic RSV Immunization Patients Under 20 months Aged Out No longer eligible based on patient's age to complete this topic Varicella Vaccines Aged Out No longer eligible based on patient's age to complete this topic Procedures Procedure Name Priority Date/Time Associated Diagnosis Comments TRANSTHORACIC ECHOCARDIOGRAM (TTE) COMPLETE Routine 04/07/2024 10:10 AM EST Systolic congestive heart failure, unspecified HF chronicity (CMS/HCC) VT (ventricular tachycardia) (CMS/HCC) ANNUAL BMP BLOOD TEST Routine 08/03/2019 COLONOSCOPY Routine 11/13/2015 from Last 3 Months or Most Recently Relevant to Health Maintenance Results * (ABNORMAL) TRANSTHORACIC ECHOCARDIOGRAM (TTE) COMPLETE (04/07/2024 10:10 AM EST) LV EDV (A2C) 345 mL CV PACS LV EDV (A4C) 312 mL CV PACS LV Diastolic Volume (BP) 346(A) 62 - 150 mL CV PACS LV ESV (A2C) 239 mL CV PACS LV ESV (A4C) 275 mL CV PACS LV Systolic Volume (BP) 256(A) 21 - 61 mL CV PACS IVSD 1.5(A) 0.6 - 1.0 cm CV PACS LVIDD 6.6(A) 4.2 - 5.8 cm CV PACS LVIDS 6.2(A) 2.5 - 4.0 cm CV PACS LVOT Diameter 2.6 cm CV PACS LVOT Mean Tutu 0.5 m/s CV PACS LVOT Mean Grad 1 mmHg CV PACS LVOT Mean Grad 1 mmHg CV PACS LVOT Peak VTI 14.0 cm CV PACS LVOT Peak VTI 14.0 cm CV PACS LVOT Peak Tutu 0.7 m/s CV PACS LVOT Peak Gradient 2 mmHg CV PACS LVPWD 1.5(A) 0.6 - 1.0 cm CV PACS MV E' Tissue Velocity Lateral 6 cm/s CV PACS MV E' Tissue Velocity Septal 5 cm/s CV PACS GLS -9.7 % CV PACS GLS -6.9 % CV PACS GLS -6.6 % CV PACS GLS -7.7 % CV PACS Ejection Fraction (A2C) 31 % CV PACS Ejection Fraction (A4C) 12 % CV PACS Ejection Fraction (BP) 26 % CV PACS LVOT Area 5.3 cm2 CV PACS LVOT Stroke Volume 74 mL CV PACS Left Atrium Minor [place] 7.0 cm CV PACS Left Atrium Major [place] 7.3 cm CV PACS LA Area Sys (A2C) 37 cm2 CV PACS LA Area Sys (A4C) 30 cm2 CV PACS LA Volume (BP) 126 mL CV PACS LA Size 6.0 cm CV PACS RA Area 31.2 cm2 CV PACS RA 2D Volume 126 mL CV PACS AV Regurgitation PHT 571 ms CV PACS AR Max Velocity 3.3 m/s CV PACS AV Peak Tutu 1.5 m/s CV PACS AV Peak Tutu 1.5 m/s CV PACS AV Peak Gradient 9 mmHg CV PACS AV Mean Gradient 5 mmHg CV PACS AV Mean Gradient 5 mmHg CV PACS Ao VTI 31.8 cm CV PACS AV Area Peak Velocity 2.5 cm2 CV PACS Aortic Arch 3.1 cm CV PACS Ascending Aorta 4.2 cm CV PACS Aortic Sinus Valsalva 3.4 cm CV PACS IVC Proximal 3.0 cm CV PACS MR PISA Nyquist Tutu 24 cm/s CV PACS PISA MR Radius 0.90 cm CV PACS MV Mean Gradient 2 mmHg CV PACS MV Mean Gradient 2 mmHg CV PACS MV Mean Gradient 2 mmHg CV PACS MV Mean Gradient 2 mmHg CV PACS MR VTI 150.0 cm CV PACS MV VTI 31.9 cm CV PACS MR PISA Max Velocity 4.7 m/s CV PACS MR Peak Gradient 88 mmHg CV PACS Mitral Valve Max Velocity 1.2 m/s CV PACS MV Peak Gradient 5 mmHg CV PACS MV Deceleration Harrison 5.8 m/s2 CV PACS E Wave Deceleration Time 183 119 - 242 ms CV PACS MV PHT 54 ms CV PACS MV Peak A Tutu 0.83 m/s CV PACS MV Peak E Tutu 1.05 m/s CV PACS MV Peak E Tutu 1.05 m/s CV PACS PISA MR EROA 0.26 cm2 CV PACS MV Area PHT 4.1 cm2 CV PACS PISA Regurgitant Volume 39 mL CV PACS PV Acceleration Time 77 ms CV PACS PV Mean Gradient 1 mmHg CV PACS PV VTI 15.5 cm CV PACS PV Peak Velocity 0.9 m/s CV PACS PV Peak Gradient 3 mmHg CV PACS RV Diastolic Basal Dimension 7.3(A) 2.5 - 4.1 cm CV PACS RV S' 10 cm/s CV PACS TAPSE 26 mm CV PACS TR Peak Velocity 3.37 m/s CV PACS TR Peak Gradient 45 mmHg CV PACS Relative Wall Thickness ratio 0.45 CV PACS FS 6 % CV PACS LV Mass 2D 498 g CV PACS LVOT flow 265 mL/s CV PACS BSA 1.95 m2 CV PACS LV Diastolic Volume Index (BP) 177(A) 34 - 74 mL/m2 CV PACS LV Systolic Volume Index (BP) 131(A) 11 - 31 mL/m2 CV PACS LV EDV Index (A4C) 160 mL/m2 CV PACS LV ESV Index (A4C) 141 mL/m2 CV PACS LV EDV Index (A2C) 177 mL/m2 CV PACS LV ESV Index (A2C) 123 mL/m2 CV PACS LA Volume Index (BP) 65 mL/m2 CV PACS LVIDD Index 3.38 cm/m2 CV PACS LVIDS Index 3.18 cm/m2 CV PACS LV Mass Index 2D 255(A) 50 - 102 g/m2 CV PACS LVOT Stroke Index 38 mL/m2 CV PACS LA Dimension Index 2D 3.1 cm/m2 CV PACS RA 2D Volume Index 65(A) 18 - 32 mL/m2 CV PACS GABRIELLE Index (Pk Tutu) 1.28 cm2/m2 CV PACS Ascending Aorta Index 2.15 cm/m2 CV PACS Anatomical Region Laterality Modality Ultrasound Narrative 04/13/2024 10:21 AM EST ?Left ventricle cavity is moderately dilated. Left ventricular systolic function is severely decreased with an ejection fraction less than 20%. ?? The septum is more hypokinetic than the remainder of the ventricle but the entire ventricle is severely hypokinetic. ?Severe LV global hypokinesis is present. ?Left ventricle mild concentric hypertrophy. ?There is Grade III (severe) diastolic dysfunction, restrictive filling. ?Right ventricle cavity is moderately enlarged. Right ventricular systolic function is moderately reduced. ?Aortic valve leaflets are mildly thickened. ?Mitral valve demonstrates mild-moderate regurgitation with a centrally directed jet. ?Moderately elevated right ventricular systolic pressure. ??Moderate tricuspid regurgitation. ?Moderate pulmonary hypertension. 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 ?No significant change from October 08, 2022. Left Ventricle Left ventricle cavity is moderately dilated. There is mild concentric hypertrophy. Systolic function is severely decreased with an ejection fraction less than 20%. Severe global LV hypokinesis is present. There is Grade III (severe) diastolic dysfunction, restrictive filling. Right Ventricle Right ventricle cavity is moderately dilated. Systolic function is moderately reduced. A pacer wire is present in the right ventricle. Left Atrium Left atrium cavity is severely dilated. Right Atrium Right atrium cavity is severely dilated. IVC/SVC Inferior vena cava is dilated. RA pressures is estimated to be 15 mmHg (IVC diameter >21 mm and decreases <50% during inspiration). Mitral Valve The leaflets are mildly thickened. There is mild annular calcification. There is mild to moderate regurgitation with a centrally directed jet. There is no evidence of mitral valve stenosis. Tricuspid Valve Tricuspid valve structure is normal. There is trace regurgitation. There is no evidence of tricuspid valve stenosis. The right ventricular systolic pressure is moderately elevated. Aortic Valve The aortic valve is trileaflet. The leaflets are mildly thickened. There is mild regurgitation with a centrally directed jet. There is no evidence of aortic valve stenosis. Pulmonic Valve There is trace pulmonic valve regurgitation. There is no evidence of pulmonic valve stenosis. Ascending Aorta The ascending aorta is (4.2 cm). Pericardium Pericardium appears normal. There is no pericardial effusion. Study Details Overall the study quality was adequate. Additional technique includes myocardial strain. Result [facility] Summer Mari NP CV ECHO PROCEDURES Final Result * Annual BMP Blood Test (08/03/2019) [facility] Annual BMP Blood Test abstracted Result [facility] Provider HEALTH MAINTENANCE Final Result * Colonoscopy (11/13/2015) [facility] Colonoscopy no interpretation , abstracted Anatomical Region Laterality Modality Other Result [facility] Historical Provider HEALTH MAINTENANCE Final Result from Last 3 Months or Most Recently Relevant to Health Maintenance Insurance MEDICARE Advance Directives Documents on File Type Date Recorded 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 Expl 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 Health Care Decision (hx) 02/25/2015 AD CHIN DIRECTIVE Health Care Decision (hx) 02/25/2015 AD CHIN DIRECTIVE Health Care Decision (hx) 02/25/2015 AD CHIN DIRECTIVE Health Care Decision (hx) 02/25/2015 AD CHIN DIRECTIVE Health Care Decision (hx) 02/25/2015 AD CHIN DIRECTIVE Health Care Decision (hx) 02/25/2015 AD CHIN DIRECTIVE Health Care Decision (hx) 02/25/2015 AD CHIN DIRECTIVE Health Care Decision (hx) 02/25/2015 AD CHIN DIRECTIVE Health Care Decision (hx) 02/25/2015 AD CHIN DIRECTIVE Health Care Decision (hx) 02/25/2015 AD CHIN DIRECTIVE Health Care Decision (hx) 02/25/2015 AD CHIN DIRECTIVE Health Care Decision (hx) 02/25/2015 AD CHIN DIRECTIVE Health Care Decision (hx) 02/25/2015 AD CHIN DIRECTIVE Health Care Decision (hx) 02/25/2015 AD CHIN DIRECTIVE Health Care Decision (hx) 02/25/2015 AD HCIN DIRECTIVE Health Care Decision (hx) 02/25/2015 AD CHIN DIRECTIVE Health Care Decision (hx) 02/25/2015 AD CHIN DIRECTIVE Health Care Decision (hx) 02/25/2015 AD CHIN DIRECTIVE Health Care Decision (hx) 02/25/2015 AD CHIN DIRECTIVE Health Care Decision (hx) 02/25/2015 AD CHIN DIRECTIVE Care Teams Office Mover Relationship Specialty Start Date End Date Geremias Quintero MD PCP - General Internal Medicine 02/21/15
--- OUTSIDE RECORDS SUMMARY | 2024-06-13 12:37 | XMS_ITS | Clinical Summary ---
Author Organization [facility], Address [address] [place] [address] [place] [address] Phone Care Team Providers [employer] Name Role Phone Geremias Quintero MD Primary Care Provider [phone] Allergies Active Allergy Reactions Criticality Noted Date Comments Ceftriaxone Rash Medium 04/27/2024 Cephalosporins Rash Medium 04/27/2024 Pt says probably right Cephalexin 04/27/2024 unknown Penicillins 08/27/2022 unknown Medications furosemide (LASIX) 80 MG tablet Take 2 tablets by mouth once daily 180 tablet 3 Active metoprolol succinate XL (TOPROL XL) 25 MG 24 hr tablet Take 25 mg by mouth 1 (one) time each day Do not crush or chew. Active aspirin (ST KIRSTEN) 81 MG EC tablet Take 81 mg by mouth 1 (one) time each day Active calcium carbonate (TUMS) 500 MG chewable tablet Chew 1 tablet in the morning and 1 tablet in the evening and 1 tablet before bedtime. Active ergocalciferol 1.25 MG (14751 UT) capsule Take 50,000 Units by mouth 1 (one) time per week Active B Jhqdsvs-T-Fjwjn Acid (MAI-STEPHANIE PO) Take by mouth Active carvedilol (COREG) 3.125 MG tablet Take 3.125 mg by mouth in the morning and 3.125 mg in the evening. Take with meals. Active metOLazone 2.5 MG tablet Take 2.5 mg by mouth 1 (one) time each day Active alpha tocopherol (VITAMIN E) 1000 units capsule Comments: Filled Date: Mar 01 2019 12:00AM Patient Notes: take 1 capsule daily, tx cramping Duration: 60 11/20/201 9 Active Sodium Zirconium Cyclosilicate 10 g pack Take 10 g by mouth 3 Active midodrine (PROAMATINE) 5 MG tablet Take 1 tablet by mouth 0 Active lisinopril 2.5 MG tablet Take 1 tablet by mouth 9 Active gabapentin (NEURONTIN) 100 MG capsule Duration: 60 Active calcium acetate (PHOSLO) 667 MG tablet Take 2,001 mg by mouth 3 Active calcitriol (ROCALTROL) 0.25 MCG capsule Take 1.25 mcg by mouth 3 Active atorvastatin (LIPITOR) 80 MG tablet Take 80 mg by mouth 3 Active amiodarone (PACERONE) 200 MG tablet Take 200 mg by mouth 3 Active acetaminophen (Tylenol) 325 MG tablet Take 650 mg by mouth 1 Active Active Problems Problem Noted Date Diagnosed Date Chronic kidney disease 04/27/2024 Hypotension 04/27/2024 Cataract 04/27/2024 Automatic implantable cardiac defibrillator in s itu 04/27/2024 Lactose intolerance 04/27/2024 Osteoarthritis 04/27/2024 Myocardial infarction 2024 Overview (04/27/2024): Cardiac catheterization without coronary disease 2023 Last Assessment & Plan: Patient had an NSTEMI likely due to demand ischemia from rapid ventricular response to atrial arrhythmias. Is imperative he be on a beta-jaimie and was starting at 25 mg and will titrate upwards over the next several weeks. Continue low-dose aspirin. Paroxysmal atrial fibrillation 2024 Overview (04/27/2024): Last Assessment & Plan: Transient atrial arrhythmia [...] an anticoagulant. The best treatment for him. Hypertensive disorder 03/28/2021 Mitral valve regurgitation 03/28/2021 Acute systolic heart failure 02/21/2021 Congestive heart failure 10/11/2018 Overview (04/27/2024): Last Assessment & Plan: The patient has [...] He appreciates this effort on our part. 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 Does have a left bundle branch block. In the past he was intolerant and would not take a neurohormonal medications. This time though he was recently placed on carvedilol. We will speak with his sports statistician to see if he would be a [...] prefer to meet him in the hospital. Hyperparathyroidism 03/08/2015 Lyme disease 03/08/2015 Dependence on renal dialysis 03/05/2015 End stage renal disease 03/05/2015 Overview (04/27/2024): On hemodialysis.. Has suprapubic catheter Encounters Date Type Department Care Team Description 06/13/2024 Treatment [facility] [address] [address] Jan Romero MD End stage renal disease; Dependence on renal dialysis 06/07/2024 10:30 AM EST Office Visit [facility] [address] [place] [address] Pablo Carmona DO End stage renal disease (HCC) (Primary Dx) 06/06/2024 Treatment [facility] [address] [address] Jan Romero MD 06/05/2024 Telephone [facility] [address] [place] [address] Kym Gilmore 05/30/2024 Treatment [facility] [address] [address] Jan Romero MD 05/25/2024 Treatment [facility] [address] [address] Jan Romero MD 05/17/2024 9:00 AM EST Office Visit [facility] [address] [place] [address] Pablo Carmona DO End stage renal disease (HCC) (Primary Dx) 05/16/2024 Treatment [facility] [address] [address] Jan Romero MD 05/16/2024 Telephone [facility] [address] [place] [address] Marisol Castañeda 05/09/2024 Telephone [facility] [address] [place] [address] Mando Kym 05/02/2024 Treatment [facility] [address] [address] Jan Romero MD 04/28/2024 Telephone [facility] [address] [place] [address] Shyanne Guzmán post op call 04/27/2024 3:00 PM EST Procedure visit [facility] [address] [place] [address] Vladimir Scott MD End stage renal disease (HCC) (Primary Dx) 04/25/2024 Treatment [facility] [address] [address] Jan Romero MD 04/20/2024 Treatment [facility] [address] [address] Jan Romero MD 04/20/2024 Treatment [facility] [place] [address] [facility] [address] [place] [address] Jan Romero MD 04/13/2024 Treatment [facility] [address] [address] Jan Romero MD 04/06/2024 Treatment [facility] [address] [address] Jan Romero MD 03/30/2024 Treatment [facility] [address] [address] Jan Romero MD 03/23/2024 Treatment [facility] [address] [phone] Jan Romero MD from Last 3 Months Family History Medical History Relation Comments Heart disease Mother Stroke Mother Diabetes Sibling 1 Hypertension Sibling 2 Relation Status Comments Father Mother Sibling 1 Sibling 2 Social History Tobacco Use Types Packs/Day Years Used Date Smoking Tobacco: Never Alcohol Use Standard Drinks/Week Comments No 0 (1 standard drink = 0.6 oz pur e alcohol) Sex and Gender Information Value Date Recorded Sex Assigned at Not on file Legal Sex Male 4:42 PM EST Gender Identity Not on file Sexual Orientation Not on file Last Filed Vital Signs Vital Sign Reading Time Taken Comments Blood Pressure 129/66 04/27/2024 2:41 PM EST Pulse 69 04/27/2024 2:41 PM EST Temperature 36.2 ??C (97.2 ??F) 04/27/2024 2:41 PM ES T Respiratory Rate 16 04/27/2024 2:41 PM EST Oxygen Saturation 94% 04/27/2024 2:41 PM EST Inhaled Oxygen Concentration - - Weight 73 kg (160 lb 15 oz) 04/27/2024 2:[address] Height 182.9 cm (6') 04/27/2024 2:41 PM EST Body Mass Index 21.83 04/27/2024 2:41 PM EST Plan of Treatment Health Maintenance Due Date Last Done Comments Pneumococcal Vaccine: 65+ Years (1 of 2 - PCV) 957 Hepatitis B Vaccine (1 of 5 - Risk Dialysis 4-dose series) 1970 Colorectal Cancer Screening: Annual FOBT 02/09/2000 Colorectal Cancer Screening: Colonoscopy 02/09/2000 Colorectal Cancer Screening: Sigmoidoscopy 02/09/2000 Influenza Vaccine (#1) 2023 Procedures Procedure Name Priority Date/Time Associated Diagnosis Comments HEMOGLOBIN Routine 06/08/2024 3:00 AM EST HEMOGLOBIN AND HEMATOCRIT, BLOOD Routine 06/01/2024 3:00 AM EST PROTEIN, TOTAL, SERUM Routine 05/18/2024 3:00 AM EST TRANSFERRIN SATURATION Routine 3:00 AM EST MAGNESIUM Routine 05/18/2024 3:00 AM EST ELECTROLYTE PANEL Routine 05/18/2024 3:0 0 AM EST LIH (HC) Routine 05/18/2024 3:00 AM EST LACTATE DEHYDROGENASE Routine 05/18/2024 3:00 AM EST GLUCOSE, RANDOM Routine 05/18/2024 3:00 AM EST CREATININE, SERUM Routine 05/18/2024 3:0 0 AM EST BILIRUBIN, TOTAL Routine 05/18/2024 3:00 AM EST ALT Routine 05/18/2024 3:00 AM EST CALCIUM PHOSPHORUS PRODUCT, ADJUSTED (HC) Routine 05/18/2024 3:00 AM EST ALKALINE PHOSPHATASE Routine 05/18/2024 3:00 AM EST AST Routine 05/18/2024 3:00 AM EST KT/V NATURAL LOG, URR (HC) Routine 05/18/2024 3:00 AM EST CBC AND DIFFERENTIAL Routine 05/18/2024 3:00 AM EST HEMOGLOBIN Routine 05/11/2024 3:00 AM EST HEMOGLOBIN AND HEMATOCRIT, BLOOD Routine 05/06/2024 3:00 AM EST COLLECTION DATE (HC) Routine 05/06/2024 3:00 AM EST HEPATITIS B SURFACE ANTIGEN W/REFL CONFIRM Routine 05/02/2024 3:00 AM EST ALUMINUM LEVEL Routine 04/20/2024 3:00 AM EST FERRITIN Routine 04/20/2024 3:00 AM EST HEPATITIS C ABS W/REFLEX RNA DETECTR Routine 04/20/2024 3:00 AM EST CONFIRMATION TEST HCV Routine 04/20/2024 3:00 AM EST VITAMIN D 25 HYDROXY Routine 04/20/2024 3:00 AM EST HEPATITIS B SURFACE ANTIBODY QUANT Routine 04/20/2024 3:00 AM EST TRANSFERRIN SATURATION Routine 3:00 AM EST URIC ACID Routine 04/20/2024 3:00 AM EST PROTEIN, TOTAL, SERUM Routine 04/20/2024 3:00 AM EST MAGNESIUM Routine 04/20/2024 3:00 AM EST LIPID PANEL Routine 04/20/2024 3:00 AM EST ELECTROLYTE PANEL Routine 04/20/2024 3:0 0 AM EST LIH (HC) Routine 04/20/2024 3:00 AM EST LACTATE DEHYDROGENASE Routine 04/20/2024 3:00 AM EST CREATININE, SERUM Routine 04/20/2024 3:0 0 AM EST BILIRUBIN, TOTAL Routine 04/20/2024 3:00 AM EST GLUCOSE, RANDOM Routine 04/20/2024 3:00 AM EST AST Routine 04/20/2024 3:00 AM EST ALT Routine 04/20/2024 3:00 AM EST ALKALINE PHOSPHATASE Routine 04/20/2024 3:00 AM EST CALCIUM PHOSPHORUS PRODUCT, ADJUSTED (HC) Routine 04/20/2024 3:00 AM EST PTH, INTACT Routine 04/20/2024 3:00 AM EST HEMOGLOBIN Routine 04/20/2024 3:00 AM EST COLLECTION DATE (HC) Routine 04/20/2024 3:00 AM EST KT/V NATURAL LOG, URR (HC) Routine 04/20/2024 3:00 AM EST HEMOGLOBIN Routine 04/13/2024 3:00 AM EST HEPATITIS B SURFACE ANTIBODY QUANT Routine 04/10/2024 3:00 AM EST HEMOGLOBIN AND HEMATOCRIT, BLOOD Routine 04/10/2024 3:00 AM EST TRANSFERRIN SATURATION Routine 3:00 AM EST PROTEIN, TOTAL, SERUM Routine 03/16/2024 3:00 AM EST MAGNESIUM Routine 03/16/2024 3:00 AM EST ELECTROLYTE PANEL Routine 03/16/2024 3:0 0 AM EST LACTATE DEHYDROGENASE Routine 03/16/2024 3:00 AM EST LIH (HC) Routine 03/16/2024 3:00 AM EST CREATININE, SERUM Routine 03/16/2024 3:0 0 AM EST GLUCOSE, RANDOM Routine 03/16/2024 3:00 AM EST BILIRUBIN, TOTAL Routine 03/16/2024 3:00 AM EST AST Routine 03/16/2024 3:00 AM EST ALT Routine 03/16/2024 3:00 AM EST CALCIUM PHOSPHORUS PRODUCT, ADJUSTED (HC) Routine 03/16/2024 3:00 AM EST ALKALINE PHOSPHATASE Routine 03/16/2024 3:00 AM EST KT/V NATURAL LOG, URR (HC) Routine 03/16/2024 3:00 AM EST CBC AND DIFFERENTIAL Routine 03/16/2024 3:00 AM EST from Last 3 Months Results * (ABNORMAL) Hemoglobin (06/08/2024 3:00 AM EST) Only the most recent of4 resultswithin the time period is included. Hgb 10.9(L) 13.7 - 17.5 g/dL [facility] Hemoglobin x 3 32.7(L) 41.1 - 52.5 g/dL [facility] 06/08/2024 3:00 AM EST 06/09/2024 12:06 PM EST us Jan Romero MD LAB BLOOD ORDERABLES Final Re sult Performing Organization Address City/State/[facility] Co de Phone Number [facility] [address] [place] [address] * (ABNORMAL) Hemoglobin and hematocrit (06/01/2024 3:00 AM EST) Only the most recent of3 resultswithin the time period is included. Hgb 11.4(L) 13.7 - 17.5 g/dL [facility] Hematocrit 33.1(L) 40.1 - 51.0 % [facility] Hemoglobin x 3 34.2(L) 41.1 - 52.5 g/dL [facility] 06/01/2024 3:00 AM EST 06/02/2024 1:26 PM EST us Jan Romero MD LAB BLOOD ORDERABLES Final Re sult Performing Organization Address City/State/[facility] Co de Phone Number [facility] [address] [place] [address] * LIH (05/18/2024 3:00 AM EST) Only the most recent of3 resultswithin the time period is included. Lipemia Normal Normal [facility] Icterus Normal Normal [facility] Hemolysis Normal Normal [facility] 05/18/2024 3:00 AM EST 05/19/2024 1:07 PM EST Jan Romero MD LAB [id number] SOLICITED RESULTS Final Result Performing Organization Address [facility] de Phone Number [facility] [address] [place] [address] * (ABNORMAL) Kt/V Natural Log, URR (05/18/2024 3:00 AM EST) Only the most recent of3 resultswithin the time period is included. Pathologist [facility] Treatment Time 243 min [facility] Pre-Weight, lb 76.2 kg [facility] Post-Weight, lb 73.0 kg [facility] Ultrafiltration Rate 11 <=13 mL/kg/hr [facility] Comment: Recommend achieving Ultrafiltration Rate (UFR) <=10 mL/kg/hr References: Brad YOUNG et al. Kidney Int. 2010; 79(2):250-257 BUN Post Dialysis 14 7 - 25 mg/dL [facility] BUN 49(H) 7 - 25 mg/dL [facility] UREA REDUCTION RATIO (%) 71 >=65 % [facility] Kt/V Natural Log 1.50 >=1.2 [facility] 05/18/2024 3:00 AM EST 05/19/2024 1:06 PM EST Jan Romero MD LAB [id number] SOLICITED RESULTS Final Result Performing Organization Address [facility] de Phone Number [facility] [address] [place] [address] * (ABNORMAL) Calcium Phosphorus Product, Adjusted (05/18/2024 3:00 AM EST) Only the most recent of3 resultswithin the time period is included. Albumin 3.8 3.6 - 5.4 g/dL [facility] Calcium 9.3 8.6 - 10.3 mg/dL [facility] Phosphorus, Serum 6.2(H) 2.5 - 5.0 mg/dL [facility] Ca*PO4 57.7(A) <55.0 mg2/dL2 [facility] Calcium, Adjusted Total 9.5 8.6 - 10.3 mg/dL [facility] CA*PO4 CORRCTD 58.9(A) <55.0 mg2/dL2 [facility] 05/18/2024 3:00 AM EST 05/19/2024 1:07 PM EST Jan Romero MD LAB [id number] SOLICITED RESULTS Final Result Performing Organization Address [facility] de Phone Number [facility] [address] [place] [address] * (ABNORMAL) TSAT (05/18/2024 3:00 AM EST) Only the most recent of3 resultswithin the time period is included. Iron 80 65 - 175 ug/dL [facility] Transferrin 158(L) 215 - 365 mg/dL [facility] TIBC 221 211 - 406 ug/dL [facility] Iron Saturation (TSat) 36 22 - 52 % [facility] 05/18/2024 3:00 AM EST 05/19/2024 1:07 PM EST Jan Romero MD LAB BLOOD ORDERABLES Final Re sult Performing Organization Address [facility] de Phone Number [facility] [address] [place] [address] * (ABNORMAL) CBC and Differential (05/18/2024 3:00 AM EST) Only the most recent of2 resultswithin the time period is included. DIFFERENTIAL MANUAL, 2 Not Indicated [facility] White Blood Cells 6.6 4.2 - 9.1 K/uL [facility] RBC 3.39(L) 4.63 - 6.08 M/uL [facility] Hgb 10.8(L) 13.7 - 17.5 g/dL [facility] Hemoglobin x 3 32.4(L) 41.1 - 52.5 g/dL [facility] Hematocrit 33.2(L) 40.1 - 51.0 % [facility] MCV 97.9(H) 79.0 - 92.2 fL [facility] MCH 31.9 25.7 - 32.2 pg [facility] MCHC 32.5 32.3 - 36.5 g/dL [facility] Platelets 205 163 - 337 K/uL [facility] RDW 15.6(H) 11.6 - 14.4 % [facility] Neutrophils Relative 63.3 34.0 - 67.9 % [facility] Lymphocytes Relative 18.6(L) 21.8 - 53.1 % [facility] Monocytes 12.1 5.3 - 12.2 % [facility] Eosinophils Relative 4.4 0.8 - 7.0 % [facility] Basophils Relative 1.1 0.2 - 1.2 % [facility] Immature Granulocytes 0.5 0.0 - 1.0 % [facility] 05/18/2024 3:00 AM EST 05/19/2024 1:03 PM EST Jan Romero MD LAB BLOOD ORDERABLES Final Re sult Performing Organization Address City/[facility] Co de Phone Number [facility] [address] [place] [address] * ALT (05/18/2024 3:00 AM EST) Only the most recent of3 resultswithin the time period is included. ALT (SGPT) 15 10 - 49 U/L [facility] 05/18/2024 3:00 AM EST 05/19/2024 1:07 PM EST Jan Romero MD LAB BLOOD ORDERABLES Final Re sult Performing Organization Address City/[facility] Co de Phone Number [facility] [address] [place] [address] * (ABNORMAL) AST (05/18/2024 3:00 AM EST) Only the most recent of3 resultswithin the time period is included. AST (SGOT) 52(H) <34 U/L [facility] 05/18/2024 3:00 AM EST 05/19/2024 1:07 PM EST Jan Romero MD LAB BLOOD ORDERABLES Final Re sult Performing Organization Address [facility] de Phone Number [facility] [address] [place] [address] * Protein, total (05/18/2024 3:00 AM EST) Only the most recent of3 resultswithin the time period is included. Total Protein 7.0 6.4 - 8.9 g/dL [facility] 05/18/2024 3:00 AM EST 05/19/2024 1:07 PM EST Jan Romero MD LAB BLOOD ORDERABLES Final Re sult Performing Organization Address [facility] de Phone Number [facility] [address] [place] [address] * Alkaline phosphatase (05/18/2024 3:00 AM EST) Only the most recent of3 resultswithin the time period is included. Alkaline Phosphatase 52 46 - 116 U/L [facility] 05/18/2024 3:00 AM EST 05/19/2024 1:07 PM EST Jan Romero MD LAB BLOOD ORDERABLES Final Re sult Performing Organization Address [facility] de Phone Number [facility] [address] [place] [address] * Magnesium (05/18/2024 3:00 AM EST) Only the most recent of3 resultswithin the time period is included. Magnesium 2.5 1.9 - 2.7 mg/dL [facility] 05/18/2024 3:00 AM EST 05/19/2024 1:07 PM EST Jan Romero MD LAB BLOOD ORDERABLES Final Re sult Performing Organization Address [facility] de Phone Number [facility] [address] [place] [address] * (ABNORMAL) Lactate dehydrogenase (05/18/2024 3:00 AM EST) Only the most recent of3 resultswithin the time period is included. LDH 300(H) 120 - 246 U/L [facility] 05/18/2024 3:00 AM EST 05/19/2024 1:07 PM EST Jan Romero MD LAB BLOOD ORDERABLES Final Re sult Performing Organization Address [facility] Phone Number [facility] [address] [place] [address] * Glucose, random (05/18/2024 3:00 AM EST) Only the most recent of3 resultswithin the time period is included. Glucose 88 74 - 109 mg/dL [facility] 05/18/2024 3:00 AM EST 05/19/2024 1:07 PM EST Jan Romero MD LAB BLOOD ORDERABLES Final Re sult Performing Organization Address [facility] de Phone Number [facility] [address] [place] [address] * (ABNORMAL) Creatinine, serum (05/18/2024 3:00 AM EST) Only the most recent of3 resultswithin the time period is included. Creatinine 6.12(H) 0.70 - 1.30 mg/dL [facility] 05/18/2024 3:00 AM EST 05/19/2024 1:07 PM EST Jan Romero MD LAB BLOOD ORDERABLES Final Re sult Performing Organization Address [facility] de Phone Number [facility] [address] [place] [address] * Bilirubin, total (05/18/2024 3:00 AM EST) Only the most recent of3 resultswithin the time period is included. Total Bilirubin 0.6 0.3 - 1.2 mg/dL [facility] 05/18/2024 3:00 AM EST 05/19/2024 1:07 PM EST Jan Romero MD LAB BLOOD ORDERABLES Final Re sult Performing Organization Address [facility] de Phone Number [facility] [address] [place] [address] * Electrolyte panel (05/18/2024 3:00 AM EST) Only the most recent of3 resultswithin the time period is included. Sodium 141 136 - 145 mEq/L [facility] Potassium 4.6 3.4 - 5.0 mEq/L [facility] Chloride 100 98 - 107 mEq/L [facility] Bicarbonate (CO2) 28 21 - 31 mEq/L [facility] Anion Gap 13 3 - 14 mEq/L [facility] 05/18/2024 3:00 AM EST 05/19/2024 1:07 PM EST us Jan Romero MD LAB BLOOD ORDERABLES Final Re sult Performing Organization Address [facility] de Phone Number [facility] [address] [place] [address] * Collection Date (05/06/2024 3:00 AM EST) Only the most recent of2 resultswithin the time period is included. Collection Date See Comment [facility] Comment: Patient sample received may exceed specimen stability, based on the collection date electronically provided. ??When reviewing patient results, verify collection information and consider specimen stability before acting on any critical or panic results. 05/06/2024 3:00 AM EST us Jan Romero MD LAB [id number] SOLICITED RESULTS Final Result Performing Organization Address [facility] de Phone Number [facility] [address] [place] [address] * Hepatitis B Surface Ag w/Reflex Confirmation (05/02/2024 3:00 AM EST) Pathologist [facility] Hep B Surface Antigen Negative Negative [facility] 05/02/2024 3:00 AM EST 05/03/2024 3:34 PM EST Jan Romero MD LAB BLOOD ORDERABLES Final Re sult Performing Organization Address [facility] de Phone Number [facility] [address] [place] [address] * Confirmation Test HCV (04/20/2024 3:00 AM EST) [facility] Hep C Ab Confirmation Not needed [facility] 04/20/2024 3:00 AM EST 04/24/2024 1:24 PM EST Jan Romero MD LAB BLOOD ORDERABLES Final Re sult Performing Organization Address [facility] de Phone Number [facility] [address] [place] [address] * HEPATITIS C ABS W/REFLEX RNA DETECTR (04/20/2024 3:00 AM EST) [facility] Hep C Virus Ab Non-Reacti ve Non-Reacti ve [facility] 04/20/2024 3:00 AM EST 04/24/2024 1:38 PM EST Jan Romero MD LAB [id number] SOLICITED RESULTS Final Result Performing Organization Address [facility] de Phone Number [facility] [address] [place] [address] * Aluminum level (04/20/2024 3:00 AM EST) Pathologist [facility] Aluminum 4 1 - 20 ug/L [facility] 04/20/2024 3:00 AM EST 04/24/2024 1:40 PM EST Jan Romero MD LAB BLOOD ORDERABLES Final Re sult Performing Organization Address [facility] de Phone Number [facility] [address] [place] [address] * Vitamin D 25 Hydroxy (04/20/2024 3:00 AM EST) Vitamin D, 25-Hydroxy 31 30 - 100 ng/mL [facility] Comment: Status ? Adult ?? Pediatric Deficient: ? <20 ? <15 Insufficient: ??20-29 ?? 15-19 Sufficient: ?30-100 ??20-100 04/20/2024 3:00 AM EST 04/24/2024 1:38 PM EST Jan Romero MD LAB BLOOD ORDERABLES Final Re sult Performing Organization Address [facility] de Phone Number [facility] [address] [place] [address] * Hepatitis B Surface Antibody (04/20/2024 3:00 AM EST) Only the most recent of2 resultswithin the time period is included. Hep B Surface Antibody >1,000 mIU/mL [facility] Comment: Interpretation: <10: No Immunity >=10: Probable Immunity 04/20/2024 3:00 AM EST 04/24/2024 1:38 PM EST Jan Romero MD LAB BLOOD ORDERABLES Final Re sult Performing Organization Address [facility] de Phone Number [facility] [address] [place] [address] * Uric Acid (04/20/2024 3:00 AM EST) Uric Acid 5.4 4.4 - 7.6 mg/dL [facility] 04/20/2024 3:00 AM EST 04/24/2024 1:38 PM EST Jan Romero MD LAB BLOOD ORDERABLES Final Re sult Performing Organization Address [facility] de Phone Number [facility] [address] [place] [address] * PTH, Intact (04/20/2024 3:00 AM EST) Pathologist [facility] PTH, Intact 346 160 - 721 pg/mL [facility] Comment: Suggested (KDIGO) ESRD maintenance range is two to nine times the upper normal limit (80.1 pg/mL) for the laboratory. 04/20/2024 3:00 AM EST 04/24/2024 1:38 PM EST Jan Romero MD LAB BLOOD ORDERABLES Final Re sult Performing Organization Address [facility] de Phone Number [facility] [address] [place] [address] * (ABNORMAL) Ferritin (04/20/2024 3:00 AM EST) Pathologist [facility] Ferritin 1,476(H) 22 - 322 ng/mL [facility] 04/20/2024 3:00 AM EST 04/24/2024 1:38 PM EST Jan Romero MD LAB BLOOD ORDERABLES Final Re sult Performing Organization Address [facility] Phone Number [facility] [address] [place] [address] * (ABNORMAL) Lipid panel (04/20/2024 3:00 AM EST) Cholesterol 155 <200 mg/dL [facility] Comment: Optimal: ?<200 Borderline: ? 200-239 Higher Risk: ?>239 Triglycerides 50 <150 mg/dL [facility] Comment: Optimal: ?<150 Borderline High: ??150-199 High: ? 200-499 Very High: ?>499 HDL 52(A) >59 mg/dL [facility] Comment: Desirable: ?>59 Higher Risk: ?<40 LDL-Calc 93 <100 mg/dL [facility] Comment: Optimal: ?<100 Above Optimal: ?100-129 Borderline High: ??130-159 High: ? 160-189 Very High: ?>189 VLDL Cholesterol Micky 10 <30 mg/dL [facility] Comment: Optimal: ?<30 Borderline High: ??30-39 High: ? 40-99 Very High: ?>99 Chol/HDL Ratio 3.0 <3.3 [facility] Comment: Optimal: ?<3.3 Higher Risk: ?>6.2 04/20/2024 3:00 AM EST 04/24/2024 1:38 PM EST us Jan Romero MD LAB BLOOD ORDERABLES Final Re sult [facility] [address] [place] [address] from Last 3 Months Insurance MEDICARE MEDICARE MEDICARE Care Teams [employer] Science Teacher Relationship Specialty Start Date End Date Geremias Quintero MD [address] [place] [id number] PCP - General 02/14/19
--- OUTSIDE RECORDS SUMMARY | 2024-06-13 12:37 | XMS_ITS | Encounter Summary ---
Author Organization [facility] Address [address] [address] Phone Care Team Providers Care Termite Exterminator Helper Name Role Phone Geremias Quintero MD Primary Care Provider [phone] Encounter Details Date Type Department Care Team (Late st Contact Info) Description 05/16/2024 Treatment [facility] [address] [address] Hamzah Romero MD [address] [address] Social History Tobacco Use Types Packs/Day Years Used Date Smoking Tobacco: Never Alcohol Use Standard Drinks/Week Comments No 0 (1 standard drink = 0.6 oz pur e alcohol) Sex and Gender Information Value Date Recorded Sex Assigned at Not on file Legal Sex Male 4:42 PM EST Gender Identity Not on file Sexual Orientation Not on file documented as of this encounter Miscellaneous Notes * Dialysis Note - Hamzah Romero MD - 05/16/2024 12:00 AM EST Patient: Joseph Olmos : 1950 Note Type: Dialysis Rounds-Comp Service Date: 05/16/2024 This patient was personally seen for a complete visit as part of routine monthly dialysis care for end stage renal disease. Attending Squeegee Operator: HAMZAH ROMERO MD Dialysis Location: [facility] Schedule: Shift: 1 ADEQUACY ASSESSMENT Kt/V, Natural Log 1.50 (05/18/24) 1.53 (04/20/24) 1.52 (03/16/24) UREA REDUCTION RATIO (%) 71 (05/18/24) 72 (04/20/24) 73 (03/16/24) BUN 49 (05/18/24) 58 (04/20/24) 59 (03/16/24) BUN Post Dialysis 14 (05/18/24) 16 (04/20/24) 16 (03/16/24) Creatinine 6.12 (05/18/24) 6.00 (04/20/24) 5.85 (03/16/24) Bicarbonate (CO2) 28 (05/18/24) 24 (04/20/24) 22 (03/16/24) Sodium 141 (05/18/24) 139 (04/20/24) 138 (03/16/24) ANEMIA ASSESSMENT Hgb 10.8 (05/18/24) 10.7 (05/11/24) 11.7 (05/06/24) Iron Saturation (TSat) 36 (05/18/24) 35 (04/20/24) 31 (03/16/24) Ferritin 1,476 (04/20/24) Iron 80 (05/18/24) 79 (04/20/24) 75 (03/16/24) TIBC 221 (05/18/24) 228 (04/20/24) 242 (03/16/24) MCV 97.9 (05/18/24) 95.2 (03/16/24) 99.7 (02/17/24) Platelets 205 (05/18/24) 178 (03/16/24) 160 (02/17/24) BMM ASSESSMENT Calcium, Adjusted Total 9.5 05/18/24 9.7 04/20/24 9.6 03/16/24 Calcium 9.3 05/18/24 9.6 04/20/24 9.5 03/16/24 Phosphorus, Serum 6.2 05/18/24 6.7 04/20/24 6.2 03/16/24 Ca*PO4 57.7 05/18/24 64.3 04/20/24 58.9 03/16/24 PTH, Intact 346 04/20/24 Vitamin D, 25-Hydroxy 31 04/20/24 Magnesium 2.5 05/18/24 2.5 04/20/24 2.6 03/16/24 Alkaline Phosphatase 52 05/18/24 52 04/20/24 54 03/16/24 Aluminum 4 04/20/24 NUTRITION ASSESSMENT Albumin 3.8 05/18/24 3.9 04/20/24 3.9 03/16/24 Potassium 4.6 05/18/24 5.9 04/20/24 5.3 03/16/24 ADDITIONAL LABS White Blood Cells 6.6 (05/18/24) 5.6 (03/16/24) 5.9 (02/17/24) Cholesterol 155 (04/20/24) HDL 52 (04/20/24) LDL-Calc 93 (04/20/24) Triglycerides 50 (04/20/24) Hep B Surface Antibody >1,000 (04/20/24) >1,000 (04/10/24) Uric Acid 5.4 (04/20/24) ADDITIONAL COMMENT COMMENTS: 05/16/24 stable 12/14/23 stable 12/21/23 doing well 01/04/24 stable 01/18/24 same issues 02/01/24 stable 02/15/24 no new issues 03/02/24 stable 03/02/24 02/22/24 stable 03/06/24 doing ok 03/14/24 stable 03/23/24 no new issues 04/06/24 stable 04/13/24 doing ok , f/u with cards 04/20/24 stable 04/25/24 stable 05/02/24 stable Signed by: HAMZAH ROMERO MD on 05/25/2024 at 07:16:24 AM documented in this encounter Plan of Treatment Not on file documented as of this encounter Visit Diagnoses Not on filedocumented in this encounter Care Teams Termite Exterminator Helper Relationship Specialty Start Date End Date Geremias Quintero MD [address] [place] [id number] PCP - General 02/14/19 documented as of this encounter
--- OUTSIDE RECORDS SUMMARY | 2024-06-13 12:37 | XMS_ITS | Encounter Summary ---
Author Organization [facility] Address [address] [address] Phone Care Team Providers Care Public Speaking Instructor Name Role Phone Geremias Quintero MD Primary Care Provider Encounter Details Date Type Department Care Team (Late st Contact Info) Description 05/25/2024 Treatment [facility]. [address] [address] Hamzah Romero MD [address] [address] Social History Tobacco Use Types [...] Dialysis Note - Hamzah Romero MD - 05/25/2024 12:00 AM EST Patient: Joseph Olmos : 1950 Note Type: Dialysis Rounds-Basic Telehealth Service Date: 05/25/2024 Telehealth encounter using audiovisual technology, performed according to state requirements. Appropriate patient consent obtained. This patient was personally seen for a basic visit as part of routine monthly dialysis care for end stage renal disease. Attending Cnc Specialist: HAMZAH ROMERO MD Dialysis Location: [facility] Schedule: Shift: 1 ADEQUACY ASSESSMENT [...] 5.4 (04/20/24) ADDITIONAL COMMENT COMMENTS: 05/16/24 stable 05/25/24 same issues 12/14/23 stable 12/21/23 doing well 01/04/24 stable 01/18/24 same issues 02/01/24 stable 02/15/24 no new issues 03/02/24 stable 03/02/24 02/22/24 stable 03/06/24 doing ok 03/14/24 stable 03/23/24 no new issues 04/06/24 stable 04/13/24 doing ok , f/u with cards 04/20/24 stable 04/25/24 stable 05/02/24 stable Signed by: HAMZAH ROMERO MD on 05/25/2024 at 08:31:53 AM documented in this encounter Plan of Treatment Not on file documented as of this encounter Visit Diagnoses Not on filedocumented in this encounter Care Teams Public Speaking Instructor Relationship Specialty Start Date End Date Geremias Quintero MD [address] [place] [address] PCP - General 02/14/19 documented as of this encounter
--- OUTSIDE RECORDS SUMMARY | 2024-06-13 12:37 | XMS_ITS | Clinical Summary ---
Author Organization [facility] Address [address] [id number] Care Team Providers Care In Home Baby Sitter Name Role Phone Patient, Has No Pcp Or Ref Primary Care Provider Unavailable Allergies No known active allergies Medications No known medications Social History Tobacco Use Types Packs/Day Years Used Date Smoking Tobacco: Never Smokeless Tobacco: Never Alcohol Use Standard Drinks/Week Comments Never 0 (1 standard drink = 0.6 oz pur e alcohol) Sex and Gender Information Value Date Recorded Sex Assigned at Not on file Legal Sex Male 12:01 AM EDT Gender Identity Not on file Sexual Orientation Not on file Last Filed Vital Signs Vital Sign Reading Time Taken Comments Blood Pressure 132/64 07/19/2021 10:19 AM EDT Pulse 68 07/19/2021 10:19 AM EDT Temperature 36.8 ??C (98.2 ??F) 07/19/2021 10:19 AM E DT Respiratory Rate 16 07/19/2021 10:19 AM EDT Oxygen Saturation 98% 07/19/2021 10:19 AM EDT Inhaled Oxygen Concentration - - Weight 75 kg (165 lb 5.5 oz) 07/19/2021 10:50 AM EDT Height - - Body Mass Index - - Plan of Treatment Health Maintenance Due Date Last Done Comments Cologuard 1950 Colon Cancer Screening 1950 Colonoscopy 1950 FOBT / Fit Test 1950 Hepatitis C Screening 1950 Sigmoidoscopy 1950 Pneumococcal Vaccine: 50+ Years (1 of 1 - PCV) 2001 Zoster Vaccines (1 of 2) 2001 COVID-19 Vaccine (2023-2 5 season) 2023 07/04/2020, 05/23/2020 Influenza Vaccine (#1) 2023 Alcohol/Substance Use Screening 04/12/2024 Depression Screening and Follow-Up 04/12/2024 Health Care Proxy Review 04/12/2024 Social Drivers of Health Annual Screening 04/12/2024 RSV Vaccine (60+ years old a nd patients) (1 - 1-dose 75+ series) 2026 DTaP,Tdap,and Td Vaccines (2 - Td or Tdap) 08/10/2027 08/09/2017, 02/02/2017, 02/02/2017 Hepatitis B Vaccines Aged Out No long er eligible based on patient's age to complete this topic Insurance MEDICARE [employer] Care Teams In Home Baby Sitter Relationship Specialty Start Date End Date Patient, Has No Pcp Or Ref DO NOT EDIT THIS RECORD VIA PROVIDER ON THE FLY PCP - General Cross Cut Saw Operator 07/19/21
--- OUTSIDE RECORDS SUMMARY | 2024-06-13 12:37 | XMS_ITS | Encounter Summary ---
Author Organization [facility] Address [address] [place] [address] Care Team Providers Care Client Consultant Name Role Phone Geremias Quintero MD Primary Care Provider [phone] Reason for Referral * Consultation (Routine) - Authorized Specialty Diagnoses / Procedures Referred By Nataly t Referred To Contact Gastroenterology Diagnoses Liver cyst Geremias Quintero MD [address] [address] Phone: tel: fax: Gastroenterology - [address] [address] Phone: tel: fax: Referral ID Status Reason Start Date Expiration Date Visits Requested Visits Authorized [id number] Authorized Specialty Services Required 05/24/2024 05/24/2025 1 1 Reason for Visit * Reason Comments Follow-up Encounter Details Date Type Department Care Team (Latest Contact Info) Description 05/24/2024 8:30 AM EST Office Visit Internal Medicine - [place] [address] [address] Geremias Quintero MD [address] [address] Chronic systolic congestive heart failure (CMS/HCC) (Primary Dx); Nonischemic dilated cardiomyopathy (CMS/HCC); Paroxysmal atrial fibrillation (CMS/HCC); ESRD (end stage renal disease) (CMS/HCC); Liver cyst Social History Tobacco Use Types Packs/Day Years [...] on file documented as of this encounter Last Filed Vital Signs Vital Sign Reading Time Taken Comments Blood Pressure 112/60 05/24/2024 9:19 AM EST Pulse 99 05/24/2024 9:19 AM EST Temperature 36.3 ??C (97.3 ??F) 05/24/2024 9:19 AM ES T Respiratory Rate - - Oxygen Saturation 90% 05/24/2024 9:19 AM EST Inhaled Oxygen Concentration - - Weight 74.8 kg (165 lb) 05/24/2024 9:19 AM EST Height - - Body Mass Index 23.68 04/07/2024 1:34 PM EST documented in this encounter Progress Notes * Geremias Quintero MD - 05/24/2024 8:30 AM EST COMPLAINT new visit IDENTIFIER: Joseph Olmos is a 74 y.o. old male. 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 Not taking medication ,need to follow-up with director of safety and security .ESRD on hemodialysis. ROS: GENERAL: No malaise, significant weight loss or fever RESPIRATORY: No cough, wheezing or shortness of breath CARDIOVASCULAR: No chest pain, leg swelling or palpitations GI: No abdominal discomfort, blood in stools or black stools PAST MEDICAL HISTORY: Patient Active Problem List Diagnosis Date Noted Paroxysmal atrial fibrillation ([facility]) 2024 NSTEMI (non-ST elevated myocardial infarction) ([facility]) 2024 Chronic suprapubic catheter ([facility]) 01/20/2023 HFrEF (heart failure with reduced ejection fraction) ([facility]) 01/20/2023 Elevated troponin 01/20/2023 Nonischemic dilated cardiomyopathy ([facility]) 01/20/2023 VT (ventricular tachycardia) ([facility]) 03/28/2021 Systolic dysfunction 03/28/2021 Mitral valve regurgitation 03/28/2021 Inverted T wave 03/28/2021 Hypertensive disorder 03/28/2021 Pancreas cyst 10/28/2018 Cardiomyopathy ([facility]) 10/11/2018 Congestive heart failure (CHF) ([facility]) 10/11/2018 End stage renal disease ([facility]) 10/11/2018 Liver mass 10/11/2018 Hemodialysis patient ([facility]) 10/11/2018 Past Surgical History: Procedure Laterality Date OTHER SURGICAL HISTORY PROCEDURE: MO PRQ TRLUML CORONARY ANGIO/ATHEREC ADDL ART/BRNCH OTHER SURGICAL HISTORY PROCEDURE: MO HEMODIAL VIA FUNCTIONG AV FISTULA SOCIAL HISTORY: Social History Tobacco Use Smoking status: Never Smokeless tobacco: Never Substance Use Topics Alcohol use: No FAMILY HISTORY: Family History Problem Relation Name Age of Onset Heart failure Brother No Known Problems Mother No Known Problems Father MEDICATIONS DISCONTINUED/REORDERED: There are no discontinued medications. ACTIVE MEDICATIONS: Outpatient Medications Marked as Taking for the 05/24/24 encounter (Office Visit) with Geremias Quintero MD Medication Sig Dispense Refill ANTACID, CALCIUM CARBONATE, ORAL Take by mouth. Take with meals aspirin/caffeine (ANACIN ORAL) Take 0.5 Tablets by mouth daily. CHOLECALCIFEROL, VITAMIN D3, ORAL Take by mouth daily. multivit-min/iron/folic acid/K (ADULTS MULTIVITAMIN ORAL) Take by mouth. Taken after dialysis ALLERGIES: Allergies Allergen Reactions Penicillins PHYSICAL EXAM: Vitals: 05/24/24 0919 BP: 112/60 Pulse: 99 Temp: 36.3 ??C (97.3 ??F) SpO2: 90% APPEARANCE: Alert and in no acute distress EARS: External ears normal. HEART: RRR with normal S1 and S2, no murmurs LUNG: clear to auscultation LABS: No results found for: WBC , HGB , HCT , MCV No results found for: NA , K , CO2 , CL , BUN , GLU , ALB , ALKPHOS , TP No results found for: TSH No results found for: HGBA1C , CHOL , LDL , HDL , TRIG , GLU No components found for: URINELEUK , URINENITR , URINEPRO , URINEPH , URINEBLD , URINESG , URINEKET , URINEBILI , URINEGLUC IMAGING: IMPRESSION: 1. Chronic systolic congestive heart failure ([facility]) 2. Nonischemic dilated cardiomyopathy ([facility]) 3. Paroxysmal atrial fibrillation ([facility]) 4. ESRD (end stage renal disease) (CMS/HCC) PLAN: ESRD on hemodialysis. nonischemic dilated cardiomyopathy EF of less than 20%, has a defibrillator, need to follow-up with director of safety and security. Also has chronic anemia. documented in this encounter Plan of Treatment Upcoming Encounters Date Type Department Care Team (Late st Contact Info) Description 06/20/2024 10:40 AM EDT Consult Gastroenterology - [place] [address] [place] [address] Lisandro Macias PA [address] [place] [address] 06/22/2024 10:10 AM EDT Office Visit [facility] - [address] [place] [address] Wendy Du PA [address] [place] [address] 07/11/2024 10:30 AM EDT Ancillary Procedure [facility] [address] [place] [address] 11/23/2024 11:00 AM EDT Office Visit Internal Medicine - [place] [address] [place] [address] Geremias Quintero MD [address] [facility] [address] [place] [address] Scheduled Referrals Name Type Priority Associated Diagnoses Order Schedule Ambulatory referral to Gastroenterology Outpatient Referral Routine Liver cyst 1 Occurrences starting 05/24/2024 until 05/24/2025 documented as of this encounter Visit Diagnoses Diagnosis Chronic systolic congestive heart failure (CMS/HCC)- Primary Nonischemic dilated cardiomyopathy (CMS/HCC) Paroxysmal atrial fibrillation (CMS/HCC) Atrial fibrillation ESRD (end stage renal disease) (CMS/HCC) End stage renal disease Liver cyst Other specified disorders of liver Encounter for adjustment or management of cardiac device documented in this encounter Care Teams Client Consultant Relationship Specialty Start Date End Date Geremias Quintero MD PCP - General Internal Medicine 02/21/15 documented as of this encounter
--- OUTSIDE RECORDS SUMMARY | 2024-06-13 12:37 | XMS_ITS | Encounter Summary ---
Author Organization [facility], Address [address] [place] [address] Phone Care Team Providers Care Automatic Cigar Wrapper Tender Name Role Phone Geremias Quintero MD Primary Care Provider [phone] Encounter Details Date Type Department Care Team (Late st Contact Info) Description 05/17/2024 9:00 AM EST Office Visit [facility] [address] [place] [address] Pablo Carmona DO [address] [place] [id number] End stage renal disease (HCC) (Primary Dx) Social History Tobacco Use Types Packs/Day Years Used Date Smoking Tobacco: Never Alcohol Use Standard Drinks/Week Comments No 0 (1 standard drink = 0.6 oz pur e alcohol) Sex and Gender Information Value Date Recorded Sex Assigned at Not on file Legal Sex Male 4:42 PM EST Gender Identity Not on file Sexual Orientation Not on file documented as of this encounter Progress Notes * Pablo Carmona DO - 05/17/2024 9:00 AM EST Images from the original note were not included. Surgical Tunneled Catheter Removal 05/17/24 This patient was seen in the office today for follow-up of their tunneled, cuffed catheter. Patient has a LUE AVF which was declotted recently. Hemodialysis fistula has a thrill and is functioning well for dialysis. Patient does complain of some pain in the forearm (distal to the AVF) whichstarted after it was infiltrated. There is some induration / infiltration present, which will resolve over time, continue to monitor. Can continue to use the fistula. Preoperative Diagnosis: S/P tunneled catheter placement Postoperative Diagnosis: S/P tunneled catheter placement Procedure: Removal tunneled catheter (right femoral) Anesthesia: local Procedure Description: After obtaining informed consent, the patient was placed on the procedure table in Trendelenburg position. The catheter site was prepped and draped in the usual sterile fashion. Local anesthesia was injected. Using sharp and blunt dissection, the cuff of the catheter was freed from the subcutaneous tissue. The catheter was removed. Hemostasis was achieved. Absorbable suturewas placed. An appropriate dressing was placed. documented in this encounter Plan of Treatment Not on file documented as of this encounter Procedures Procedure Name Priority Date/Time Associated Diagnosis Comments HEMOGLOBIN AND HEMATOCRIT, BLOOD Routine 06/01/2024 3:00 AM EST LIH () Routine 05/18/2024 3:00 AM EST KT/V NATURAL LOG, URR () Routine 05/18/2024 3:00 AM EST CALCIUM PHOSPHORUS PRODUCT, ADJUSTED (HC) Routine 05/18/2024 3:00 AM EST TRANSFERRIN SATURATION Routine 3:00 AM EST CBC AND DIFFERENTIAL Routine 05/18/2024 3:00 AM EST ALT Routine 05/18/2024 3:00 AM EST AST Routine 05/18/2024 3:00 AM EST PROTEIN, TOTAL, SERUM Routine 05/18/2024 3:00 AM EST ALKALINE PHOSPHATASE Routine 05/18/2024 3:00 AM EST MAGNESIUM Routine 05/18/2024 3:00 AM EST LACTATE DEHYDROGENASE Routine 05/18/2024 3:00 AM EST GLUCOSE, RANDOM Routine 05/18/2024 3:00 AM EST CREATININE, SERUM Routine 05/18/2024 3:0 0 AM EST BILIRUBIN, TOTAL Routine 05/18/2024 3:00 AM EST ELECTROLYTE PANEL Routine 05/18/2024 3:0 0 AM EST documented in this encounter Results * (ABNORMAL) Hemoglobin and hematocrit (06/01/2024 3:00 AM EST) Hgb 11.4(L) 13.7 - 17.5 g/dL [facility] Hematocrit 33.1(L) 40.1 - 51.0 % [facility] Hemoglobin x 3 34.2(L) 41.1 - 52.5 g/dL [facility] 06/01/2024 3:00 AM EST 06/02/2024 1:26 PM EST Jan Romero MD LAB BLOOD ORDERABLES Final Re sult Performing Organization Address City/[facility]/ZIP Co de Phone Number [facility] [address] [place] [address] * Protein, total (05/18/2024 3:00 AM EST) Total Protein 7.0 6.4 - 8.9 g/dL [facility] 05/18/2024 3:00 AM EST 05/19/2024 1:07 PM EST Jan Romero MD LAB BLOOD ORDERABLES Final Re sult Performing Organization Address City/[facility]/ZIP Co de Phone Number [facility] [address] [place] [address] * (ABNORMAL) TSAT (05/18/2024 3:00 AM EST) Iron 80 65 - 175 ug/dL [facility] Transferrin 158(L) 215 - 365 mg/dL [facility] TIBC 221 211 - 406 ug/dL [facility] Iron Saturation (TSat) 36 22 - 52 % [facility] 05/18/2024 3:00 AM EST 05/19/2024 1:07 PM EST Jan Romero MD LAB BLOOD ORDERABLES Final Re sult Performing Organization Address [facility] de Phone Number [facility] [address] [place] [address] * Magnesium (05/18/2024 3:00 AM EST) Magnesium 2.5 1.9 - 2.7 mg/dL [facility] 05/18/2024 3:00 AM EST 05/19/2024 1:07 PM EST Jan Romero MD LAB BLOOD ORDERABLES Final Re sult Performing Organization Address [facility] de Phone Number [facility] [address] [place] [address] * Electrolyte panel (05/18/2024 3:00 AM EST) Sodium 141 136 - 145 mEq/L [facility] Potassium 4.6 3.4 - 5.0 mEq/L [facility] Chloride 100 98 - 107 mEq/L [facility] Bicarbonate (CO2) 28 21 - 31 mEq/L [facility] Anion Gap 13 3 - 14 mEq/L [facility] 05/18/2024 3:00 AM EST 05/19/2024 1:07 PM EST Jan Romero MD LAB BLOOD ORDERABLES Final Re sult Performing Organization Address [facility] de Phone Number [facility] [address] [place] [address] * LIH (05/18/2024 3:00 AM EST) Lipemia Normal Normal [facility] Icterus Normal Normal [facility] Hemolysis Normal Normal [facility] 05/18/2024 3:00 AM EST 05/19/2024 1:07 PM EST Jan Romero MD LAB [id number] SOLICITED RESULTS Final Result Performing Organization Address [facility] de Phone Number [facility] [address] [place] [address] * (ABNORMAL) Lactate dehydrogenase (05/18/2024 3:00 AM EST) LDH 300(H) 120 - 246 U/L [facility] 05/18/2024 3:00 AM EST 05/19/2024 1:07 PM EST Jan Romero MD LAB BLOOD ORDERABLES Final Re sult Performing Organization Address [facility] Phone Number [facility] [address] [place] [address] * Glucose, random (05/18/2024 3:00 AM EST) Glucose 88 74 - 109 mg/dL [facility] 05/18/2024 3:00 AM EST 05/19/2024 1:07 PM EST Jan Romero MD LAB BLOOD ORDERABLES Final Re sult Performing Organization Address [facility] Phone Number [facility] [address] [place] [address] * (ABNORMAL) Creatinine, serum (05/18/2024 3:00 AM EST) Creatinine 6.12(H) 0.70 - 1.30 mg/dL [facility] 05/18/2024 3:00 AM EST 05/19/2024 1:07 PM EST Jan Romero MD LAB BLOOD ORDERABLES Final Re sult Performing Organization Address [facility] de Phone Number [facility] [address] [place] [address] * Bilirubin, total (05/18/2024 3:00 AM EST) Total Bilirubin 0.6 0.3 - 1.2 mg/dL [facility] 05/18/2024 3:00 AM EST 05/19/2024 1:07 PM EST Jan Romero MD LAB BLOOD ORDERABLES Final Re sult Performing Organization Address [facility] de Phone Number [facility] [address] [place] [address] * ALT (05/18/2024 3:00 AM EST) ALT (SGPT) 15 10 - 49 U/L [facility] 05/18/2024 3:00 AM EST 05/19/2024 1:07 PM EST Jan Romero MD LAB BLOOD ORDERABLES Final Re sult Performing Organization Address [facility] de Phone Number [facility] [address] [place] [address] * (ABNORMAL) Calcium Phosphorus Product, Adjusted (05/18/2024 3:00 AM EST) Pathologist [facility] Albumin 3.8 3.6 - 5.4 g/dL [facility] Calcium 9.3 8.6 - 10.3 mg/dL [facility] Phosphorus, Serum 6.2(H) 2.5 - 5.0 mg/dL [facility] Ca*PO4 57.7(A) <55.0 mg2/dL2 [facility] Calcium, Adjusted Total 9.5 8.6 - 10.3 mg/dL [facility] CA*PO4 CORRCTD 58.9(A) <55.0 mg2/dL2 [facility] 05/18/2024 3:00 AM EST 05/19/2024 1:07 PM EST Jan Romero MD LAB [id number] SOLICITED RESULTS Final Result Performing Organization Address [facility] de Phone Number [facility] [address] [place] [address] * Alkaline phosphatase (05/18/2024 3:00 AM EST) Alkaline Phosphatase 52 46 - 116 U/L [facility] 05/18/2024 3:00 AM EST 05/19/2024 1:07 PM EST Jan Romero MD LAB BLOOD ORDERABLES Final Re sult Performing Organization Address [facility] de Phone Number [facility] [address] [place] [address] * (ABNORMAL) AST (05/18/2024 3:00 AM EST) AST (SGOT) 52(H) <34 U/L [facility] 05/18/2024 3:00 AM EST 05/19/2024 1:07 PM EST Jan Romero MD LAB BLOOD ORDERABLES Final Re sult Performing Organization Address [facility] de Phone Number [facility] [address] [place] [address] * (ABNORMAL) Kt/V Natural Log, URR (05/18/2024 3:00 AM EST) Treatment Time 243 min [facility] Pre-Weight, lb [...] 3:00 AM EST 05/19/2024 1:06 PM EST us Jan Romero MD LAB [id number] SOLICITED RESULTS Final Result Performing Organization Address [facility]/ZIP Co de Phone Number [facility] [address] [place] [address] * (ABNORMAL) CBC and Differential (05/18/2024 3:00 AM EST) DIFFERENTIAL MANUAL, 2 Not Indicated [facility] White [...] 3:00 AM EST 05/19/2024 1:03 PM EST us Jan Romero MD LAB BLOOD ORDERABLES Final Re sult [facility] [address] [place] [address] documented in this encounter Visit Diagnoses Diagnosis End stage renal disease (HCC)- Primary End stage renal disease documented in this encounter Care Teams Automatic Cigar Wrapper Tender Relationship Specialty Start Date End Date Geremias Quintero MD [address] [place] [address] PCP - General 02/14/19 documented as of this encounter
--- OUTSIDE RECORDS SUMMARY | 2024-06-13 12:37 | XMS_ITS | Encounter Summary ---
Author Organization [facility] Address [address] [place] [address] Care Team Providers Care Foundry Molder Name Role Phone Geremias Quintero MD Primary Care Provider [phone] Reason for Visit * Reason Onset Date Comments Medical Records 05/02/2024 Encounter Details Date Type Department Care Team (Late st Contact Info) Description 05/02/2024 Telephone [facility] Cardiology [facility] [address] [facility] [address] [place] [address] Geremias Quintero MD [address] [place] [address] Medical Records Social History Tobacco Use Types Packs/Day Years [...] as of this encounter Progress Notes * Umm Mann - 05/18/2024 11:33 AM EST Faxed recent Office Note, Device Check and Echo report to [facility] Preop Dept. Att: Edilma Alonzo at [phone] on 05/02/2024 documented in this encounter Plan of Treatment Upcoming Encounters Date Type Department Care Team (Late st Contact Info) Description 06/20/2024 10:40 AM EDT Consult Gastroenterology - [place] [address] [place] [address] Lisandro Macias PA [address] [place] [address] 06/22/2024 10:10 AM EDT Office Visit [facility] Cardiology [facility] [address] [place] [address] Wendy Du PA [address] [place] [address] 07/11/2024 10:30 AM EDT Ancillary Procedure [facility] [address] [place] [address] 11/23/2024 11:00 AM EDT Office Visit Internal Medicine - [place] [address] [place] [address] Geremias Quintero MD [address] [place] [address] documented as of this encounter Visit Diagnoses Not on filedocumented in this encounter Care Teams Foundry Molder Relationship Specialty Start Date End Date Geremias Quintero MD PCP - General Internal Medicine 02/21/15 documented as of this encounter
--- OUTSIDE RECORDS SUMMARY | 2024-06-13 12:37 | XMS_ITS | Encounter Summary ---
Author Organization [facility], Address [address] [place] [address] Phone Care Team Providers Care Content Production Specialist Name Role Phone Geremias Quintero MD Primary Care Provider [phone] Encounter Details Date Type Department Care Team (Late st Contact Info) Description 05/16/2024 Telephone [facility] - [facility] Center [address] [place] [address] Marisol Castañeda [address] [place] [address] Social History Tobacco Use Types Packs/Day Years [...] as of this encounter Miscellaneous Notes * Telephone Encounter - Marisol Castañeda - 05/16/2024 9:54 AM EST OFFICE VISIT REMINDER COMMUNICATION Spoke to pt and confirmed office visit scheduled on 05/17/24. Covid screening also completed: YES NO COMMENTS Do you have or have you had COVID or coronavirus? [] [x] Have you been exposed to COVID or coronavirus? [] [x] Do you live with anyone with COVID or who has been exposed? [] [x] Have you had any COVID symptoms in the past month such as fever, chills, cough, sore throat, shortness of breath or any other cold/fu symptoms? [] [x] Have you been hospitalized in the past 2 weeks? [] [x] Do you reside in a facility? [] [x] documented in this encounter Plan of Treatment Not on file documented as of this encounter Visit Diagnoses Not on filedocumented in this encounter Care Teams Content Production Specialist Relationship Specialty Start Date End Date Geremias Quintero MD [address] [place] [address] PCP - General 02/14/19 documented as of this encounter
--- OUTSIDE RECORDS SUMMARY | 2024-06-13 12:37 | XMS_ITS | Encounter Summary ---
Author Organization [facility] Address [address] [address] Phone Care Team Providers Care Patient Services Representative Name Role Phone Geremias Quintero MD Primary Care Provider [phone] Encounter Details Date Type Department Care Team (Late st Contact Info) Description 06/06/2024 Treatment [facility] P. [address] [address] Hamzah Romero MD [address] [address] Social History Tobacco Use Types [...] Dialysis Note - Hamzah Romero MD - 06/06/2024 12:00 AM EST Patient: Joseph Olmos : 1950 Note Type: Dialysis Rounds-Basic Telehealth Service Date: 06/06/2024 Telehealth encounter using audiovisual technology, performed according to state requirements. Appropriate patient consent obtained. This patient was personally seen for a basic visit as part of routine monthly dialysis care for end stage renal disease. Attending Power Distributor: HAMZAH ROMERO MD Dialysis Location: [facility] Schedule: Shift: 1 ADEQUACY ASSESSMENT [...] 139 (04/20/24) 138 (03/16/24) ANEMIA ASSESSMENT Hgb 11.4 (06/01/24) 10.8 (05/18/24) 10.7 (05/11/24) Iron Saturation (TSat) 36 (05/18/24) 35 (04/20/24) [...] COMMENT COMMENTS: 05/16/24 stable 05/25/24 same issues 05/30/24 doing ok and has card f/u 06/06/24 stable, has f/u with vasc re access 12/14/23 stable 12/21/23 doing well 01/04/24 stable 01/18/24 same issues 02/01/24 stable 02/15/24 no new issues 03/02/24 stable 03/02/24 02/22/24 stable 03/06/24 doing ok 03/14/24 stable 03/23/24 no new issues 04/06/24 stable 04/13/24 doing ok , f/u with cards 04/20/24 stable 04/25/24 stable 05/02/24 stable Signed by: HAMZAH ROMERO MD on 06/06/2024 at 03:18:26 PM documented in this encounter Plan of Treatment Not on file documented as of this encounter Visit Diagnoses Not on filedocumented in this encounter Care Teams Patient Services Representative Relationship Specialty Start Date End Date Geremias Quintero MD [address] [place] [address] PCP - General 02/14/19 documented as of this encounter
--- OUTSIDE RECORDS SUMMARY | 2024-06-13 12:37 | XMS_ITS | Encounter Summary ---
Author Organization [facility], Address [address] [place] [address] Phone Care Team Providers Care Mounting Inspector Name Role Phone Geremias Quintero MD Primary Care Provider [phone] Encounter Details Date Type Department Care Team (Late st Contact Info) Description 06/07/2024 10:30 AM EST Office Visit [facility] - V[facility] Access Center [address] [place] [address] Pablo Carmona DO [address] [place] [address] End stage renal disease (HCC) (Primary Dx) [...] Progress Notes * Pablo Carmona DO - 06/07/2024 10:30 AM EST Images from the original note were not included. Hemodialysis Access Note Date: 06/07/24 Access: left arm fistula being used for dialysis. Patient reports: Continued swelling / discomfort around the area of prior infiltration. He has recently had a thrombectomy and permcath placement. The permcath was removed and he has been using his fistula without issues. The infiltration was in his forearm that causes discomfort intermittently. He reports it is significantly better than a few months ago, but wanted to make sure there was nothing else to do for it. There were no vitals filed for this visit. Physical Exam: Extremity: left arm Access: thrill present Incision: intact Distal extremity: normal, warm, sensation intact, and full range of motion, forearm has residual infiltration, but improving Distal pulse: radial palpable Assessment: Functional access. The previously infiltrated area appears improved and will take more time to fully recover. There is no issues with the fistula and should continued to be used. 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 Plan: Continue using access. Follow up as needed. documented in this encounter Plan of Treatment Not on file documented as of this encounter Procedures Procedure Name Priority Date/Time Associated Diagnosis Comments HEMOGLOBIN Routine 06/08/2024 3:00 AM EST documented in this encounter Results * (ABNORMAL) Hemoglobin (06/08/2024 3:00 AM EST) Hgb 10.9(L) 13.7 - 17.5 g/dL [facility] Hemoglobin x 3 32.7(L) 41.1 - 52.5 g/dL [facility] 06/08/2024 3:00 AM EST 06/09/2024 12:06 PM EST us Jan Romero MD LAB BLOOD ORDERABLES Final Re sult [facility] [address] [place] [address] documented in this encounter Visit Diagnoses Diagnosis End stage renal disease (HCC)- Primary End stage renal disease documented in this encounter Care Teams Mounting Inspector Relationship Specialty Start Date End Date Geremias Quintero MD [address] [place] [address] PCP - General 02/14/19 documented as of this encounter
--- OUTSIDE RECORDS SUMMARY | 2024-06-13 12:37 | XMS_ITS | Encounter Summary ---
Author Organization [facility], Address [address] [place] [address] Phone Care Team Providers Care Clark Driver Name Role Phone Geremias Quintero MD Primary Care Provider [phone] Encounter Details Date Type Department Care Team (Late st Contact Info) Description 06/05/2024 Telephone [facility] - [facility] Access Center [address] [place] [address] Kym Gilmore [address] [place] [address] Social History Tobacco Use Types [...] encounter Miscellaneous Notes * Telephone Encounter - Kym Gilmore - 06/05/2024 11:17 AM EST OFFICE VISIT REMINDER COMMUNICATION Spoke to Joseph and confirmed office visit scheduled on 06/07/24. Covid screening also completed: YES NO COMMENTS [...] on filedocumented in this encounter Care Teams Clark Driver Relationship Specialty Start Date End Date Geremias Quintero MD [address] [place] [address] PCP - General 02/14/19 documented as of this encounter
--- OUTSIDE RECORDS SUMMARY | 2024-06-13 12:37 | XMS_ITS | Encounter Summary ---
Author Organization [facility] Address [address] [address] Phone Care Team Providers Care Solution Consultant Name Role Phone Geremias Quintero MD Primary Care Provider [phone] Encounter Details Date Type Department Care Team (Late st Contact Info) Description 05/30/2024 Treatment [facility] P. [address] [address] Hamzah Romero MD [address] [address] Social History Tobacco Use Types [...] Dialysis Note - Hamzah Romero MD - 05/30/2024 12:00 AM EST Patient: Joseph Olmos : 1950 Note Type: Dialysis Rounds-Basic Telehealth Service Date: 05/30/2024 Telehealth encounter using audiovisual technology, performed according to state requirements. Appropriate patient consent obtained. This patient was personally seen for a basic visit as part of routine monthly dialysis care for end stage renal disease. Attending Wall Insulation Sprayer: HAMZAH ROMERO MD Dialysis Location: [facility] Schedule: Shift: 1 ADEQUACY ASSESSMENT [...] by: HAMZAH ROMERO MD on 06/06/2024 at 03:18:42 PM documented in this encounter Plan of Treatment Not on file documented as of this encounter Visit Diagnoses Not on filedocumented in this encounter Care Teams Solution Consultant Relationship Specialty Start Date End Date Geremias Quintero MD [address] [place] [address] PCP - General 02/14/19 documented as of this encounter
--- OUTSIDE RECORDS SUMMARY | 2024-06-13 12:37 | XMS_ITS | Referral Summary ---
Author Organization [facility] Address [address] [place] [address] Care Team Providers Care Porter Head Name Role Phone Patient, Has No Pcp [...] Mass Index - - Plan of Treatment Not on file Insurance MEDICARE [employer] Care Teams Porter Head Relationship Specialty Start Date End Date Patient, Has No Pcp Or Ref DO NOT EDIT THIS RECORD VIA PROVIDER ON THE FLY PCP - General Product Accountant 07/19/21
--- OUTSIDE RECORDS SUMMARY | 2024-06-13 12:37 | XMS_ITS | Encounter Summary ---
Author Organization [facility] Address [address] [facility] [address] [place] [address] Phone Care Team Providers Care Media Relations Manager Name Role Phone Geremias Quintero MD Primary Care Provider Encounter Details Date Type Department Care Team (Late st Contact Info) Description 06/13/2024 Treatment [facility] P.. [address] [address] Hamzah Busby MD [address] [address] End stage renal disease; Dependence on renal dialysis Social History Tobacco Use Types Packs/Day Years [...] Miscellaneous Notes * Dialysis Note - Hamzah Busby MD - 06/13/2024 12:00 AM EST Patient: Joseph Olmos : 1950 Note Type: Dialysis Rounds-Basic Telehealth Service Date: 06/13/2024 Telehealth encounter using audiovisual technology, performed according to state requirements. Appropriate patient consent obtained. This patient was personally seen for a basic visit as part of routine monthly dialysis care for end stage renal disease. Attending Staff Combat Information Center Officer: HAMZAH BUSBY MD Dialysis Location: [facility] Schedule: Shift: 1 ADEQUACY ASSESSMENT [...] 139 (04/20/24) 138 (03/16/24) ANEMIA ASSESSMENT Hgb 10.9 (06/08/24) 11.4 (06/01/24) 10.8 (05/18/24) Iron Saturation (TSat) 36 (05/18/24) 35 (04/20/24) [...] stable, has f/u with vasc re access 06/13/24 doing ok, has appt w uro to exchange urbina 12/14/23 stable 12/21/23 doing well 01/04/24 stable 01/18/24 same issues 02/01/24 stable 02/15/24 no new issues 03/02/24 stable 03/02/24 02/22/24 stable 03/06/24 doing ok 03/14/24 stable 03/23/24 no new issues 04/06/24 stable 04/13/24 doing ok , f/u with cards 04/20/24 stable 04/25/24 stable 05/02/24 stable Signed by: HAMZAH BUSBY MD on 06/13/2024 at 08:20:42 AM documented in this encounter Plan of Treatment Not on file documented as of this encounter Visit Diagnoses Diagnosis End stage renal disease Dependence on renal dialysis documented in this encounter Care Teams Media Relations Manager Relationship Specialty Start Date End Date Geremias Quintero MD [address] [place] [address] PCP - General 02/14/19 documented as of this encounter
== END 2024-06-13 10:52 | disposition home or self-care (01) ==
LOC: HO.HUSH 10:24
PROVIDERS: PCP Internal Medicine Nephrology; Visit Provider Urology
DX: N31.9 Neuromuscular dysfunction of bladder, unspecified (principal)
CPT/HCPCS: 51705; 99213

== ENCOUNTER → 2024-06-13 10:24 | Outpatient (BNVA) | payer MEDICARE, SELFPAY | PROVIDERS: PCP Internal Medicine Nephrology; Visit Provider Urology | DX: N31.9 Neuromuscular dysfunction of bladder, unspecified (principal) | CPT/HCPCS: 51705; 99212 ==

== ENCOUNTER → 2024-07-11 10:41 | Outpatient (BNVA) | payer MEDICARE, SELFPAY | PROVIDERS: PCP Internal Medicine Nephrology; Visit Provider Urology | DX: N31.9 Neuromuscular dysfunction of bladder, unspecified (principal); Z46.6 Encounter for fitting and adjustment of urinary device; Z93.50 Unspecified cystostomy status | CPT/HCPCS: 51705 ==

== ENCOUNTER → 2024-08-30 13:34 | Outpatient (BNVA) | payer MEDICARE, SELFPAY | PROVIDERS: PCP Internal Medicine Nephrology; Visit Provider Urology | DX: N31.9 Neuromuscular dysfunction of bladder, unspecified (principal) | CPT/HCPCS: 51705 ==

== ENCOUNTER → 2024-09-26 09:36 | Outpatient (BNVA) | payer MEDICARE, SELFPAY | PROVIDERS: PCP Internal Medicine Nephrology; Visit Provider Urology | DX: N31.9 Neuromuscular dysfunction of bladder, unspecified (principal) | CPT/HCPCS: 51705 ==

== ENCOUNTER → 2024-11-07 08:45 | Outpatient (BNVA) | payer MEDICARE, SELFPAY | PROVIDERS: PCP Internal Medicine Nephrology; Visit Provider Urology | DX: Z46.6 Encounter for fitting and adjustment of urinary device (principal); N31.9 Neuromuscular dysfunction of bladder, unspecified | CPT/HCPCS: 51705 ==

== ENCOUNTER → 2025-01-05 08:41 | Outpatient (BNVA) | payer MEDICARE, SELFPAY | PROVIDERS: PCP Internal Medicine Nephrology; Visit Provider Urology | DX: Z46.6 Encounter for fitting and adjustment of urinary device (principal); N31.9 Neuromuscular dysfunction of bladder, unspecified; Z93.50 Unspecified cystostomy status | CPT/HCPCS: 51705 ==

== ENCOUNTER → 2025-03-13 08:47 | Outpatient (BNVA) | payer MEDICARE, SELFPAY | PROVIDERS: PCP Internal Medicine Nephrology; Visit Provider Urology | DX: Z46.6 Encounter for fitting and adjustment of urinary device (principal); N31.9 Neuromuscular dysfunction of bladder, unspecified; Z93.50 Unspecified cystostomy status | CPT/HCPCS: 51705 ==